=== PATIENT | female | born 1960 | race African-American/Black ===

== ENCOUNTER 2016-09-27 18:05 | Inpatient (IN) | payer BC, SELFPAY ==
[~2016-09-27] VITALS: Ht 167.6 cm; Wt 83.2 kg
[2016-09-27 18:54] LABS: BASO % 0.6 % (0.0-1.0); EOS # 0.1 K/mm3 (0.0-0.50); EOS % 2.4 % (0.0-3.0); LARGE UNSTAINED CELL # 0.1 K/mm3 (0.0-0.4); LYMPH # 0.4 K/mm3 (1.5-4.5); LYMPH % 13.1 % (24.0-44.0); MEAN CORPUSCULAR HEMOGLOBIN 24.2 pg (27.0-33.0); MEAN CORPUSCULAR HGB CONC 29.4 g/dl (32.0-36.5); MEAN CORPUSCULAR VOLUME 82.1 fl (80.0-96.0); MONO # 0.2 K/mm3 (0.0-0.8); MONO % 5.7 % (0.0-5.0); NEUTROPHILS # 2.3 K/mm3 (1.8-7.7); NEUTROPHILS % 75.3 % (36.0-66.0); PLATELET COUNT, AUTOMATED 195 k/mm3 (150-450); RED CELL DISTRIBUTION WIDTH 17.4 % (11.5-14.5)
[2016-09-27 19:02] LABS: ADD MORPHOLOGY? YES
[2016-09-27 19:11] LABS: ANION GAP 5 MEQ/L (8-16); BLOOD UREA NITROGEN 18 MG/DL (7-18); CALCIUM LEVEL 9.1 MG/DL (8.5-10.1); CARBON DIOXIDE LEVEL 36 MEQ/L (21-32); CHLORIDE LEVEL 99 MEQ/L (98-107); CREATININE FOR GFR 0.81 MG/DL (0.55-1.02); GLOMERULAR FILTRATION RATE > 60.0 (>51); GLUCOSE, FASTING 132 MG/DL (70-105); POTASSIUM SERUM 3.9 MEQ/L (3.5-5.1); SODIUM LEVEL 140 MEQ/L (136-145)
[2016-09-27 19:17] LABS: ANISOCYTOSIS 1+; HYPOCHROMASIA 2+
[2016-09-27] MEDS ORDERED: IBUPOTC PO (20:25)
[2016-09-27] MEDS ORDERED: ISOVUE-370 76% 100ML VIAL (Q9967) As Ordered ONE (20:47)
--- NOTE | 2016-09-27 21:30 | REPUSA ---
CT of the chest Clinical statement: Chest pain and shortness of breath. Technique: Multiple axial CT images were obtained from the thoracic inlet through the upper abdomen a fter a bolus administration of nonionic intravenous contrast. Coronal and sagittal reconstructions we re also obtained. No comparison is available. Findings: The central pulmonary arteries are unremarkable. The thoracic aorta is unremarkable. Thyroi d gland is within normal limits. There is no thoracic lymphadenopathy. There are extensive emphysemat ous changes in the upper lobes. Diffuse bilateral infiltrates are appreciated. There is a small right -sided pleural effusion. Limited imaging of the upper abdomen is unremarkable. There are no suspiciou s osseous lesions. Impression: Diffuse bilateral infiltrates. Small right-sided pleural effusion. Severe emphysematous c hanges in the upper lobes bilaterally.
[2016-09-27 22:13] LABS: ABG BASE EXCESS 6.7 (-2.0-2.0); ABG DEVICE NASAL CANN; ABG PARTIAL PRESSURE O2 83.3 mmHg (75.0-100.0); ABG STANDARD HCO3 30.6 MEQ/L (22.0-26.0); ABG TOTAL CO2 37.2 MEQ/L (22.0-29.0); ABG pH (ARTERIAL) 7.313 UNITS (7.350-7.450)
[2016-09-27 22:15] LABS: ABG PARTIAL PRESSURE CO2 70.6 mmHg (35.0-45.0)
[2016-09-27] MEDS ORDERED: cefTRIAXone SOD 1 GM VIAL (J0696) As Ordered ONE (22:23)
[2016-09-27] MEDS ORDERED: IPRATROPIUM 0.5MG/ALBUTEROL 2.5MG INH SOL UD 3ML (DUONEB)(J7620) As Ordered ONE (22:41)
[2016-09-27] MEDS ORDERED: AZITHROMYCIN INJ 500MG VIAL (J0456) As Ordered ONE (22:54)
[2016-09-27] MEDS ORDERED: ALBUTEROL SULFATE 2.5 MG/0.5 ML INH NEB SOLN NEB PRN (23:45)
[2016-09-28] VITALS (11 sets, daily range): BP systolic 116–141; BP diastolic 65–80; O2SAT 98
[2016-09-28 00:33] LABS: ABG BASE EXCESS 4.5 (-2.0-2.0); ABG HCO3 33.2 MEQ/L (22.0-26.0); ABG PARTIAL PRESSURE O2 68.5 mmHg (75.0-100.0); ABG STANDARD HCO3 28.4 MEQ/L (22.0-26.0); ABG TOTAL CO2 35.4 MEQ/L (22.0-29.0); ABG pH (ARTERIAL) 7.277 UNITS (7.350-7.450)
[2016-09-28 00:34] LABS: ABG PARTIAL PRESSURE CO2 72.7 mmHg (35.0-45.0)
[2016-09-28] MEDS ORDERED: IPRATROPIUM 0.5MG/ALBUTEROL 2.5MG INH SOL UD 3ML (DUONEB)(J7620) NEB SCH (02:00)
[2016-09-28 02:04] LABS: ERYTHROCYTE SEDIMENTATION RATE 16 mm/hr (0-30)
--- NOTE | 2016-09-28 02:14 | HPE ---
DATE OF ADMISSION: 09/27/2016 PRIMARY CARE PROVIDER: None. CHIEF COMPLAINT: Shortness of breath. HISTORY OF PRESENT ILLNESS: Ms. Perales is a 56-year-old female with no known prior past medical history who was brought in by family with complaint of shortness of breath. The onset of her symptom is somewhat unclear, but thinks it might have started a year ago and noticed that it has slowly worsened. A month ago, she had no difficulty walking from the [employer] parking lot into the front door; however, in the last month or so her symptoms have progressed to the point that she can barely walk 10 feet without stopping for rest. Unable to tell how long the episode lasts. The patient seems to minimize her symptoms but family noticed that she can barely eat, walking, do the dishes, vacuuming without feeling winded. Associated with intermittent chest pain every 2 weeks that is located in her mid and substernal area, described as sharp, lasting for seconds. Unable to tell what provokes the pain. Occasionally takes ibuprofen, which seems to help. No paroxysmal nocturnal dyspnea or orthopnea, though son states that she wakes up at night to cough multiple times. No fevers, chills, nausea, rigors. Thinks she might have lost some weight, but unable to recall how much. Has never been seen by a provider for this condition. In the emergency department (ED), was started on Rocephin, azithromycin and nebulizer treatments. PAST MEDICAL HISTORY: None. PAST SURGICAL HISTORY: None. HOME MEDICATION: Occasional ibuprofen for chest pain, which seems to help. ALLERGIES: No known drug allergies. SOCIAL HISTORY: The patient is an ex-smoker. Used to smoke for 25 years, but a pack would last her for a week. Quit 1-1/2 years ago. No alcohol. No drug use. Lifetime travel includes going to [place], [place], [place], [place]. 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 No exposure tuberculosis, asbestos she is aware of. In June 2016, had acquired two parakeets. Did not notice that her symptoms progressed after having her birds. FAMILY HISTORY: Father with hypertension. Mother is alive and healthy. Her siblings are all healthy. REVIEW OF SYSTEMS: CONSTITUTIONAL: Denies fevers, chills, rigors. Positive for unintentional unknown amount of weight loss. HEENT: Denies headaches, lightheadedness, hemoptysis, dizziness, difficulty with speech and swallow. Positive for blurry vision requiring glasses at work, no pain. CARDIOVASCULAR: As mentioned above. Has not noticed any leg swelling. PULMONARY: As mentioned above. GASTROINTESTINAL: Denies hematochezia, melena, or hematemesis, nausea, vomiting , diarrhea, constipation. GENITOURINARY: No dysuria, frequency or hematuria. MUSCULOSKELETAL: No bone, muscle, joint pain. NEUROLOGICAL: No paralysis, paresthesia, headaches, seizure disorders. ENDOCRINE: Negative for diabetes, or thyroid disease. LYMPHATICS: No lumps, bumps, or swelling anywhere in neck, axilla, or groin. HEMATOLOGY: No abnormal bleeding or bruising. ONCOLOGY: No history of malignancy. PHYSICAL EXAMINATION: VITAL SIGNS: Blood pressure 185/93, heart rate 127 improved to 98, respiration rate 24, temperature 97.7, pulse oximetry initially 68% on room air, which improved to 94% on 4 liters nasal cannula. Body mass index (BMI) 30. GENERAL: The patient is sitting in bed, ill appearing, currently wearing bilevel positive airway pressure (BiPAP) at 10/4, back up rate 8 with FIO2 of 30%, uncomfortable, using accessory muscles. Family at bedside. She is alert, awake, oriented times three, cooperative, appears stated age. HEENT: Normocephalic, atraumatic. Wearing bilevel positive airway pressure (BPAP), but oral mucosa appears moist. Rest of exam deferred at this time as she is needing her mask. NECK: Supple. Trachea midline. No jugular venous distention (JVD). CHEST: Symmetric chest rise with abdominal muscle use. Prolonged expiratory phase. Breath sounds are coarse with crackles throughout all lung bases. HEART: Mildly tachycardic, normal S1, S2. Heart sounds are obscured due to her coarse breath sounds. ABDOMEN: Soft, nontender, nondistended. Bowel sounds present. No guarding. No rebound. EXTREMITIES: There is 1-2+ pitting edema bilateral lower extremities. Sensory intact. NEUROLOGIC: She is alert, awake, oriented as mentioned above. No focal deficits appreciated. INTEGUMENT: No obvious rashes appreciated. She does have a small nodular change on her left left leg, nontender. LYMPHATICS: No lymphadenopathy palpated in neck, axilla. LABORATORY DATA: WBC 3, hemoglobin 11, hematocrit 37.5, platelets 195, neutrophils 75. Sodium 140, potassium 3.9, chloride 99, carbon dioxide 36, BUN 18, creatinine 0.81, glucose 132, lactic acid 0.6. Troponin negative first set. BNP 59.9. Coagulation panel: D-dimer 2131. ABG, pH 7.31, pCO2 70.6, oxygen 83. CT chest reports diffuse bilateral infiltrates, small right-sided pleural effusion, severe emphysematous changes in upper lobes bilaterally. EKG showed sinus tachycardia, PA is 96, QTc 369. IMPRESSION AND PLAN: Ms. Perales is a 56-year-old female with no prior known past medical history, presented tonight with worsening shortness of breath. 1. Acute hypoxic hypercarbic respiratory failure. Etiology for her hypoxic episode currently unclear. Possible causes include sarcoidosis, chemical pneumonitis, infectious, versus other. She has parakeets at home though her symptoms appear to have occur even before she acquired her birds and it is unclear when her symptoms actually worsened. The patient has already been started on bilevel positive airway pressure (BiPAP). Currently on 06/11 with backup rate of 8 at 30%. Start nebulizer treatment, steroids. Has already been started on azithromycin and Rocephin. Will change to Zosyn to broaden her antibiotic coverage at this time. Check a respiratory panel. 2. Leukopenia. Reason for this unclear. Could be due to current infection. Repeat labs in the morning. Check blood cultures. 3. Anemia. Unclear what her baseline is. Repeat labs in the morning. If continues to be low, will need further workup such as iron studies. 4. Deep venous thrombosis (DVT) prophylaxis. Sequential compression devices (SCDs), thromboembolism deterrents (TEDs) and heparin. DISPOSITION: Due to the patient's critical condition, we expect her stay to be greater than two midnights. My preceptor for this patient encounter was Dr. Juan Lane. The preceptor was physically present in the building during the encounter and was fully available as needed. All aspects of the patient interview, examination, medical decision making process, and medical care plan development were reviewed and approved by the preceptor. The preceptor is aware and concurs with the plan as stated in the body of this note and will attest to such by his/her co-signature. ANGELINE
--- NOTE | 2016-09-28 02:28 | EDDOCDS ---
Nurse's Notes [facility] Name: Finn Perales Age: 56 yrs Sex: Female : 1960 Arrival Date: 09/27/2016 Time: 18:05 Bed 13 Private MD: NO PRIMARY PHYSICIAN, . Diagnosis: Other pneumonia, unspecified organism-bilateral;Emphysema-bilateral apical;Acute respiratory failure with hypercapnia Presentation: 09/27 18:09 Presenting complaint: son states cough started a month ago. gotten worse with SOB for 2 rs3 weeks. has not seen anybody. no h/o asthma. chest tightness, SOB, cough worse today. Aspirin was not taken prior to arrival. Adult Sepsis Screening: The patient does not have new or worsening altered mentation. Patient has a respiratory rate of greater than or equal to 22 (1 point). Systolic blood pressure is greater than 100. Patient has a qSOFA score of 1- Negative Sepsis Screen. Suicide/Homicide risk assessment- the patient denies having any suicidal and/or homicidal ideations and does not present with any other emotional, behavioral or mental health complaints. Status: Patient is not a hosted services analyst or dependent. Transition of care: patient was not received from another setting of care. 18:09 Acuity: CRISTAL Level 3 rs3 18:09 Method Of Arrival: Walkin/Carried/Asstd rs3 Triage Assessment: 18:12 General: Appears in no apparent distress. Pain: Location: chest. HIV screening NA for rs3 this visit Offered previously. Cardiovascular: Chest pain is described as Pain is 5 out of 10 on a pain scale. radiates Does not radiate. episodes are intermittent began one month. Historical: - Allergies: no known allergies; - Home Meds: 1. none - PMHx: none; - PSHx: none; - Social history: Smoking status: Patient states former smoker of tobacco. No barriers to communication noted, The patient speaks fluent Romansh. - Family history: Not pertinent. - : The pt / caregiver states he / she is not on anticoagulants. Home medication list is obtained from the patient. - Exposure Risk Screening:: None identified. Screenin:40 Screening information is obtained from the patient. Fall risk: No risks identified. ld5 Assistance ADL's: requires no assistance with activities of daily living. Abuse/DV Screen: The patient / caregiver reports he/she is: not in a situation that causes fear, pain or injury. Nutritional screening: No deficits noted. Advance Directives: There is no active DNR order. home support is adequate. Assessment: 18:30 General: Appears in no apparent distress, Behavior is appropriate for age, cooperative. dy 18:30 Pain: Denies pain. Neurological: Level of Consciousness is awake, alert, obeys dy commands, Oriented to person, place, time, Pupils are PERRLA. Cardiovascular: Heart tones S1 S2 Edema is 2+ to left midcalf, left ankle, left foot, right midcalf and right ankle Rhythm is regular. Respiratory: Airway is patent Respiratory effort is even, labored, Breath sounds are coarse Breath sounds with crackles inspiratory expiratory bilaterally. Derm: Skin is pink, warm & dry. 19:05 General: Appears in no apparent distress, Behavior is cooperative. Pain: Denies pain. ld5 Neurological: Level of Consciousness is awake, obeys commands. Respiratory: Airway is patent Respiratory effort is even, labored. GI: Bowel sounds present X 4 quads. Abd is soft and non tender X 4 quads. Denies nausea, vomiting. 19:05 Respiratory: Airway is patent Breath sounds are coarse bilaterally. Breath sounds are ld5 diminished bilaterally. Reports shortness of breath at rest on exertion cough that is non-productive, labored breathing. 20:14 General: Blood work obtained. Pt denies pain. States getting "restless". Railings ld5 placed down. TV placed within pt's reach. Call musa within reach. Family member at bedside. Will continue to monitor. 21:09 General: Pt returned from CT. Became SOB when asked to lay flat. Pt reports nervous ld5 about scan. This RN discussed scan to pt. Pt appeared to relax. Pt able to make it through scan with minimal distress. Will continue to monitor. 22:00 General: Pt sitting up in bed with eyes closed. Family at bedside. No apparent ld5 distress. Call musa within reach. Will continue to monitor. 23:00 General: Antibiotic started per orders. RT in room as pt was just started on BiPap. Pt ld5 and family made aware of POC. Denies any needs at this time. Will continue to monitor. 23:30 General: Pt dislikes mask from bipap machine. Requesting it be removed. It was ld5 explained to pt and family members that ABG would be repeated at 0000 and bipap may be removed pending results. Pt agreeable. Will continue to monitor. 23:50 General: Second antibiotic infusing. Pt aware of plan for ICU admission. Will continue ld5 to monitor. 09/28 00:06 General: Spoke with ICU regarding report. Will call back. ld5 00:42 General: Pt up to commode. Tolerated well. Again requesting to take bipap mask off. ld5 Repeat ABG pending. Will continue to monitor. 01:00 General: Pt requesting water. Pt NPO at this time. Will continue to monitor. ld5 01:20 General: Pt sitting up in bed and appears to be sleeping. BiPap remains in place. ld5 Awaiting ICU call regarding report. Will continue to monitor. 02:11 General: Appears in no apparent distress. Pain: Denies pain. Respiratory: Airway is ld5 patent. Vital Signs: 09/27 18:06 BP 185 / 93; Pulse 127; Resp 24 S; Temp 97.7(O); Pulse Ox 68% on R/A; Weight 83.91 kg dd6 (R); Height 5 ft. 6 in. (167.64 cm) (R); 18:25 Pulse 122 MON; Pulse Ox 67% ; dy 18:30 Pulse 110 MON; Pulse Ox 99% ; dy 18:30 BP 173 / 91 (auto/); dy 19:30 BP 157 / 82 (auto/); ld5 19:30 Pulse 104 MON; Pulse Ox 98% ; ld5 20:30 BP 162 / 94 (auto/); ld5 20:30 Pulse 100 MON; Pulse Ox 97% on 4 lpm NC; ld5 20:45 BP 164 / 93 (auto/); ld5 20:45 Pulse 98 MON; Pulse Ox 96% on 4 lpm NC; ld5 21:07 BP 169 / 89 (auto/); ld5 21:09 Pulse 112 MON; Resp 22; Temp 97.3(O); Pulse Ox 94% on 4 lpm NC; ld5 21:30 BP 165 / 87 (auto/); ld5 21:30 Pulse 100 MON; Pulse Ox 94% on 4 lpm NC; ld5 22:00 BP 185 / 86 (auto/); ld5 22:00 Pulse 104 MON; Pulse Ox 97% on 4 lpm NC; ld5 22:30 BP 164 / 92 (auto/); ld5 22:30 Pulse 96 MON; Pulse Ox 96% on 4 lpm NC; ld5 23:00 BP 173 / 93 (auto/); ld5 23:00 Pulse 104 MON; Pulse Ox 93% on BiPAP; ld5 23:30 BP 162 / 80 (auto/); ld5 23:32 Pulse 90 MON; Temp 98; Pulse Ox 98% on BiPAP; ld5 09/28 00:37 BP 140 / 74 (auto/); ld5 00:53 Pulse 86 MON; Pulse Ox 97% on 40% BiPAP; ld5 01:00 BP 105 / 57 (auto/); ld5 01:00 Pulse 84 MON; Resp 22; Pulse Ox 97% ; ld5 01:30 BP 131 / 69 (auto/); ld5 01:30 Pulse 84 MON; Resp 22; Temp 98.1; Pulse Ox 97% on 40% BiPAP; ld5 02:00 BP 135 / 74 (auto/); ld5 02:00 Pulse 84 MON; Pulse Ox 99% on 40% BiPAP; ld5 09/27 18:06 Body Mass Index 29.86 (83.91 kg, 167.64 cm) dd6 Vitals: 09/27 18:06 Log In Time: September 27, 2016 at 18:04. RN notified that patient meets Red Flag dd6 criteria. ED Course: 18:06 Patient visited by Doe Richey PCA. dd6 18:06 NO PRIMARY PHYSICIAN, . is Private Physician. dd6 18:06 Patient moved to Waiting dd6 18:08 Patient moved to Pre RCE dd6 18:10 Triage Initiated rs3 18:14 Patient moved to PD2 / rs3 18:19 Taylor Dexter, RN is Primary Nurse. dwg 18:19 Patient moved to 13 dwg 18:26 O2 via nasal cannula \\T\\ 4L/min. dy 18:26 Inserted saline lock: 18 gauge in left antecubital area and blood collected. The dy patient tolerated the procedure well. 18:28 Accompanied by Family Member, Patient has correct armband on for positive ct3 identification. Placed in gown. Bed in low position. Call light in reach. Side rails up X 1. cardiac monitor technician on. Pulse ox on. NIBP on. 18:28 EKG done. (by ED staff). Reviewed by Jared Yen MD. ct3 18:29 Patient visited by Luna Barboza PCA. ct3 18:36 Luciana Villalobos FNP is PHCP. le 18:36 B-Type Natiuretic Peptide Sent. dy 18:36 Basic Metabolic Profile Sent. dy 18:36 CBC with Diff Sent. dy 18:36 Cardiac Injury Profile Sent. dy 18:36 Troponin Sent. dy 18:39 Patient visited by Juan Martinez RN. dy 18:39 The patient / caregiver is instructed regarding the plan of care and ED course. dy 18:40 Patient visited by Luciana Villalobos FNP. le 18:40 Patient visited by Luciana Villalobos FNP. le 18:56 Primary Nurse role handed off by Taylor Dexter RN jjr 19:40 Patient visited by Lissa Renee RN. ld5 19:40 No procedures done that require assistance. ld5 19:41 Patient visited by Lissa Renee RN. ld5 19:48 [facility] Payment Agreement was scanned into [employer] and attached to record. jp5 20:02 Patient visited by Lissa Renee RN. ld5 20:14 BLOOD CULTURES Sent. ld5 20:14 -Blood Culture Sent. ld5 20:15 Patient visited by Lissa Renee RN. ld5 20:39 Patient name changed from Cherrel\\S\\\\S\\Angella\\S\\ to Cherrel\\S\\ \\S\\Angella. EDMS 21:09 Patient visited by Lissa Renee RN. ld5 21:54 Patient visited by Lissa Renee RN. ld5 22:04 -Arterial Blood Gas Sent. rs5 22:16 Patient visited by Lissa Renee RN. ld5 22:24 CT Chest With Contrast Returned. EDMS 22:44 Patient visited by Lissa Renee RN. ld5 22:44 Lactic Acid (Drake tube on ice) Sent. ld5 23:08 Patient visited by Lissa Renee RN. ld5 23:26 Patient visited by Lissa Renee RN. ld5 23:[address] MD is Hospitalizing Provider. le 09/28 00:07 Patient visited by Lissa Renee RN. ld5 00:14 ARTERIAL BLOOD GAS Sent. bb3 00:55 Patient visited by Lissa Renee RN. ld5 01:22 Patient visited by Lissa Renee RN. ld5 01:49 Patient visited by Lissa ReneeRN. ld5 02:15 Patient visited by Lissa Renee RN. ld5 Administered Medications: 09/27 22:54 Drug: Albuterol-Ipratropium 3 ml [ipratropium-albuterol 0.5 mg-3 mg(2.5 mg base)/3 mL bb3 nebulization soln (3 mL)] Route: Inhalation; 23:00 Drug: cefTRIAXone 2 grams [ceftriaxone 1 gram solution for injection] Route: IVPB; ld5 Infused Over: 30 mins; Site: left antecubital; 23:30 Follow up: IV Status: Completed infusion; IV Intake: 50ml ld5 23:45 Drug: azithromycin 500 mg [azithromycin 500 mg intravenous solution] Route: IVPB; ld5 Infused Over: 1 hrs; Site: left antecubital; 09/28 01:42 Follow up: IV Status: Completed infusion; IV Intake: 250ml ld5 Intake: 09/27 23:30 IV: 50.00ml; Total: 50.00ml. ld5 09/28 01:42 IV: 250.00ml; Total: 300.00ml. ld5 RT: 09/27 22:04 ABG's drawn from left radial artery allens test done and positive pressure held for 5 rs5 minutes no bleeding noted pressure bandage applied specimen sent pt. tolerated well. 22:53 BIPAP: Inspiratory Pressure: 10, Expiratory Pressure: 4, Backup Rate: 8, FiO2: 30%, bb3 Full face fask. Respiratory: Respiratory effort is even, unlabored, Respiratory pattern is regular symmetrical, sp02 97%. 22:55 Respiratory: Breath sounds are coarse Breath sounds with crackles bilaterally. Denies bb3 shortness of breath at rest, past baseline. 22:56 Initial Med Neb Given as ordered Patient was instructed and evaluated on procedure. bb3 23:15 Respiratory: Breath sounds are coarse bilaterally. bb3 23:16 Respiratory: pt tolerating BIPAP well. vt trending 350-400ml. respirations trending mid bb3 to low 30s non labored. 09/28 00:14 ABG's drawn from right radial artery pressure held for 5 minutes no bleeding noted bb3 pressure bandage applied specimen sent pt. tolerated well. Respiratory: BIPAP 10/4 30%. 00:41 BIPAP: Inspiratory Pressure: 14, Expiratory Pressure: 4, FiO2: 40%, Full face fask. bb3 Respiratory: changed per ABG results and conversation with Dr. Lane. Order Results: Lab Order: B-Type Natiuretic Peptide; SPEC'M 09/27/16 18:32 Test: BRAIN NATRIURETIC PEPTIDE; Value: 59.9; Range: <100; Units: PG/ML; Status: F Lab Order: Basic Metabolic Profile; SPEC'M 09/27/16 18:32 Test: GLUCOSE, FASTING; Value: 132; Range: 70-105; Abnormal: Above high normal; Units: MG/DL; Status: F Test: BLOOD UREA NITROGEN; Value: 18; Range: 7-18; Units: MG/DL; Status: F Test: CREATININE FOR GFR; Value: 0.81; Range: 0.55-1.02; Units: MG/DL; Status: F Test: GLOMERULAR FILTRATION RATE; Value: > 60.0; Range: >51; Status: F Test: SODIUM LEVEL; Value: 140; Range: 136-145; Units: MEQ/L; Status: F Test: POTASSIUM SERUM; Value: 3.9; Range: 3.5-5.1; Units: MEQ/L; Status: F Test: CHLORIDE LEVEL; Value: 99; Range: 98-107; Units: MEQ/L; Status: F Test: CARBON DIOXIDE LEVEL; Value: 36; Range: 21-32; Abnormal: Above high normal; Units: MEQ/L; Status: F Test: ANION GAP; Value: 5; Range: 8-16; Abnormal: Below low normal; Units: MEQ/L; Status: F Test: CALCIUM LEVEL; Value: 9.1; Range: 8.5-10.1; Units: MG/DL; Status: F Test Note: ; Units are mL/min/1.73 m2 Chronic Kidney Disease Staging per NKF: Stage I & II GFR >=60 Normal to Mildly Decreased Stage III GFR 30-59 Moderately Decreased Stage IV GFR 15-29 Severely Decreased Stage V GFR <15 Very Little GFR Left ESRD GFR <15 on BOTTOM BUFFER Lab Order: CBC with Diff; SPEC'M 09/27/16 18:32 Test: WHITE BLOOD COUNT; Value: 3.0; Range: 4.0-10.0; Abnormal: Below low normal; Units: K/mm3; Status: F Test: RED BLOOD COUNT; Value: 4.56; Range: 4.00-5.40; Units: M/mm3; Status: F Test: HEMOGLOBIN; Value: 11.0; Range: 12.0-16.0; Abnormal: Below low normal; Units: g/dl; Status: F Test: HEMATOCRIT; Value: 37.5; Range: 36.0-47.0; Units: %; Status: F Test: MEAN CORPUSCULAR VOLUME; Value: 82.1; Range: 80.0-96.0; Units: fl; Status: F Test: MEAN CORPUSCULAR HEMOGLOBIN; Value: 24.2; Range: 27.0-33.0; Abnormal: Below low normal; Units: pg; Status: F Test: MEAN CORPUSCULAR HGB CONC; Value: 29.4; Range: 32.0-36.5; Abnormal: Below low normal; Units: g/dl; Status: F Test: RED CELL DISTRIBUTION WIDTH; Value: 17.4; Range: 11.5-14.5; Abnormal: Above high normal; Units: %; Status: F Test: PLATELET COUNT, AUTOMATED; Value: 195; Range: 150-450; Units: k/mm3; Status: F Test: NEUTROPHILS %; Value: 75.3; Range: 36.0-66.0; Abnormal: Above high normal; Units: %; Status: F Test: LYMPH %; Value: 13.1; Range: 24.0-44.0; Abnormal: Below low normal; Units: %; Status: F Test: MONO %; Value: 5.7; Range: 0.0-5.0; Abnormal: Above high normal; Units: %; Status: F Test: EOS %; Value: 2.4; Range: 0.0-3.0; Units: %; Status: F Test: BASO %; Value: 0.6; Range: 0.0-1.0; Units: %; Status: F Test: LARGE UNSTAINED CELL %; Value: 3.0; Range: 0.0-4.0; Units: %; Status: F Test: NEUTROPHILS #; Value: 2.3; Range: 1.8-7.7; Units: K/mm3; Status: F Test: LYMPH #; Value: 0.4; Range: 1.5-4.5; Abnormal: Below low normal; Units: K/mm3; Status: F Test: MONO #; Value: 0.2; Range: 0.0-0.8; Units: K/mm3; Status: F Test: EOS #; Value: 0.1; Range: 0.0-0.50; Units: K/mm3; Status: F Test: BASO #; Value: 0.0; Range: 0.0-0.2; Units: K/mm3; Status: F Test: LARGE UNSTAINED CELL #; Value: 0.1; Range: 0.0-0.4; Units: K/mm3; Status: F Lab Order: Cardiac Injury Profile; SPEC' 09/27/16 18:32 Test: CPK CREATINE PHOSPHOKINASE; Value: 39; Range: 26-192; Units: U/L; Status: F Test: CK-MB VALUE MASS; Value: 1.0; Range: 0.0-3.6; Units: NG/ML; Status: F Test: MB/CK RELATIVE INDEX; Value: 2.56; Range: < OR =4; Status: F Test Note: ; DIAGNOSIS CRITERIA MMB ng/ml Relative Index (RI) NON-AMI < or = 5 N/A DRAKE ZONE > 5 < or = 4 AMI > 5 > 4 Lab Order: Troponin; SPEC'M 09/27/16 18:32 Test: TROPONIN I; Value: < 0.02; Range: < 0.10; Units: NG/ML; Status: F Test Note: ; Troponin I Reference Interval for [facility] LOCI: 99th Percentile= 0.00-0.045 ng/ml Risk Stratification: <= 0.10 ng/ml Decreased Risk for Adverse Clinical Events. 0.10-1.50 ng/ml Increased Risk for Adverse Clinical Events. Evaluation of additional criterion and/or repeat testing in 2-6 hours is suggested to rule out myocardial damage. >= 1.50 ng/ml Indicative of Myocardial Injury. Lab Order: RBC MORPH PROF NO CHARGE; SPECM 09/27/16 18:32 Test: PLATELET ESTIMATE; Range: NORMAL; Status: I Test: HYPOCHROMASIA; Value: 2+; Status: F Test: BASOPHILIC STIPPLING; Value: 1+; Status: F Test: ANISOCYTOSIS; Value: 1+; Status: F Test: PLATELET ESTIMATE; Value: NORMAL; Range: NORMAL; Status: F Lab Order: D-Dimer Quant; SPEC09/27/16 18:32 Test: D-DIMER QUANT; Value: 2131.8; Range: <500; Abnormal: Above high normal; Units: ng/ml; Status: F Lab Order: -Arterial Blood Gas; 09/27/16 21:56 Test: ABG pH (ARTERIAL); Value: 7.313; Range: 7.350-7.450; Abnormal: Below low normal; Units: UNITS; Status: F Test: ABG PARTIAL PRESSURE CO2; Value: 70.6; Range: 35.0-45.0; Abnormal: Above upper panic limits; Units: mmHg; Status: F Test: ABG PARTIAL PRESSURE O2; Value: 83.3; Range: 75.0-100.0; Units: mmHg; Status: F Test: ABG TOTAL CO2; Value: 37.2; Range: 22.0-29.0; Abnormal: Above high normal; Units: MEQ/L; Status: F Test: ABG HCO3; Value: 35.0; Range: 22.0-26.0; Abnormal: Above high normal; Units: MEQ/L; Status: F Test: ABG BASE EXCESS; Value: 6.7; Range: -2.0-2.0; Abnormal: Above high normal; Status: F Test: ABG STANDARD HCO3; Value: 30.6; Range: 22.0-26.0; Abnormal: Above high normal; Units: MEQ/L; Status: F Test: ABG O2 SATURATION; Value: 95.4; Range: 95.0-99.0; Units: %; Status: F Test: ABG DEVICE; Value: NASAL KAZ; Status: F Lab Order: Lactic Acid (Drake tube on ice); SPEC09/27/16 22:41 Test: LACTIC ACID LEVEL, LACTATE; Value: 0.6; Range: 0.4-2.0; Units: MMOL/L; Status: F Lab Order: ARTERIAL BLOOD GAS; SPEC'M 09/28/16 00:07 Test: ABG pH (ARTERIAL); Value: 7.277; Range: 7.350-7.450; Abnormal: Below low normal; Units: UNITS; Status: F Test: ABG PARTIAL PRESSURE CO2; Value: 72.7; Range: 35.0-45.0; Abnormal: Above upper panic limits; Units: mmHg; Status: F Test: ABG PARTIAL PRESSURE O2; Value: 68.5; Range: 75.0-100.0; Abnormal: Below low normal; Units: mmHg; Status: F Test: ABG TOTAL CO2; Value: 35.4; Range: 22.0-29.0; Abnormal: Above high normal; Units: MEQ/L; Status: F Test: ABG HCO3; Value: 33.2; Range: 22.0-26.0; Abnormal: Above high normal; Units: MEQ/L; Status: F Test: ABG BASE EXCESS; Value: 4.5; Range: -2.0-2.0; Abnormal: Above high normal; Status: F Test: ABG STANDARD HCO3; Value: 28.4; Range: 22.0-26.0; Abnormal: Above high normal; Units: MEQ/L; Status: F Test: ABG O2 SATURATION; Value: 90.5; Range: 95.0-99.0; Abnormal: Below low normal; Units: %; Status: F Lab Order: C REACTIVE PROTEIN QUANTITATIV; SPEC'M 09/27/16 18:32 Test: C REACTIVE PROTEIN QUANTITATIV; Value: 1.46; Range: 0.00-0.30; Abnormal: Above high normal; Units: MG/DL; Status: F Lab Order: ERYTHROCYTE SEDIMENTATION RATE; SPEC'M 09/27/16 18:32 Test: ERYTHROCYTE SEDIMENTATION RATE; Value: 16; Range: 0-30; Units: mm/hr; Status: F Radiology Order: CT Chest With Contrast Test: CT Chest With Contrast REASON FOR EXAMINATION: Shortness of Breath; ; CT of the chest; Clinical statement: Chest pain and shortness of breath.; Technique: Multiple axial CT images were obtained from the thoracic inlet through the upper abdomen a; fter a bolus administration of nonionic intravenous contrast. Coronal and sagittal reconstructions we; re also obtained.; No comparison is available.; Findings: The central pulmonary arteries are unremarkable. The thoracic aorta is unremarkable. Thyroi; d gland is within normal limits. There is no thoracic lymphadenopathy. There are extensive emphysemat; ous changes in the upper lobes. Diffuse bilateral infiltrates are appreciated. There is a small right; -sided pleural effusion. Limited imaging of the upper abdomen is unremarkable. There are no suspiciou; s osseous lesions.; Impression: Diffuse bilateral infiltrates. Small right-sided pleural effusion. Severe emphysematous c; hanges in the upper lobes bilaterally.; ; Outcome: 09/27 23:46 Decision to Hospitalize by Provider. le 09/28 01:22 CT Study completed. ld5 02:14 Discharge Assessment: Patient awake, alert and oriented x 3. No cognitive and/or ld5 functional deficits noted. Patient verbalized understanding of disposition instructions. patient administered narcotics - no. The following High Risk Discharge criteria are identified: None. Admitted to ICU accompanied by nurse, accompanied by tech, family with patient, via stretcher, with oxygen, on monitor, with chart, Other with RT. Condition: stable. Property :Personal belongings accompany Pt. 02:27 Patient left the ED. ld5 Signatures: Dispatcher [employer] EDMS Bryan Giles, RN Juan Garcia, RN Luciana Chung, STABILIZING MACHINE OPERATOR STABILIZING MACHINE OPERATOR Taylor Jenkins RN Doe Starkey, INTERNAL CONTROLS SPECIALIST INTERNAL CONTROLS SPECIALIST dd6 Yahaira NaiduRN RN rs3 Nakul Lopez bb3 Lissa Renee,IVAN LOVE ld5 Luna Barboza, INTERNAL CONTROLS SPECIALIST INTERNAL CONTROLS SPECIALIST ct3 Sal Hernandez,RT RT rs5 Dawna Farris jp5 Corrections: (The following items were deleted from the chart) 09/27 18:12 18:09 Presenting complaint: son states chest tightness, SOB, cough worse today rs3 rs3 09/28 00:55 00:53 Pulse 86bpm; Monitor; Pulse Ox 97% 02 30% BiPAP; ld5 ld5 MTDD
--- NOTE | 2016-09-28 02:28 | EDDOCDS ---
Physician Documentation [facility] Name: Finn Perales Age: 56 yrs Sex: Female : 1960 Arrival Date: 09/27/2016 Time: 18:05 Bed 13 Private MD: NO PRIMARY PHYSICIAN, . Disposition: 09/27/16 23:46 Hospitalization ordered by Juan Lane for Inpatient Admission. Preliminary diagnosis are Other pneumonia, unspecified organism - bilateral, Emphysema - bilateral apical, Acute respiratory failure with hypercapnia. - Bed requested for M ICU. - Status is Inpatient Admission. ld5 - Condition is Stable. - Problem is new. - Symptoms are unchanged. Historical: - Allergies: no known allergies; - Home Meds: 1. none - PMHx: none; - PSHx: none; - Social history: Smoking status: Patient states former smoker of tobacco. No barriers to communication noted, The patient speaks fluent Cambodian. - Family history: Not pertinent. - : The pt / caregiver states he / she is not on anticoagulants. Home medication list is obtained from the patient. - Exposure Risk Screening:: None identified. Vital Signs: 09/27 18:06 BP 185 / 93; Pulse 127; Resp 24 S; Temp 97.7(O); Pulse Ox 68% on R/A; Weight 83.91 kg / dd6 184.99 lbs (R); Height 5 ft. 6 in. (167.64 cm) (R); 18:25 Pulse 122 MON; Pulse Ox 67% ; dy 18:30 Pulse 110 MON; Pulse Ox 99% ; dy 18:30 BP 173 / 91 (auto/); dy 19:30 BP 157 / 82 (auto/); ld5 19:30 Pulse 104 MON; Pulse Ox 98% ; ld5 20:30 BP 162 / 94 (auto/); ld5 20:30 Pulse 100 MON; Pulse Ox 97% on 4 lpm NC; ld5 20:45 BP 164 / 93 (auto/); ld5 20:45 Pulse 98 MON; Pulse Ox 96% on 4 lpm NC; ld5 21:07 BP 169 / 89 (auto/); ld5 21:09 Pulse 112 MON; Resp 22; Temp 97.3(O); Pulse Ox 94% on 4 lpm NC; ld5 21:30 BP 165 / 87 (auto/); ld5 21:30 Pulse 100 MON; Pulse Ox 94% on 4 lpm NC; ld5 22:00 BP 185 / 86 (auto/); ld5 22:00 Pulse 104 MON; Pulse Ox 97% on 4 lpm NC; ld5 22:30 BP 164 / 92 (auto/); ld5 22:30 Pulse 96 MON; Pulse Ox 96% on 4 lpm NC; ld5 23:00 BP 173 / 93 (auto/); ld5 23:00 Pulse 104 MON; Pulse Ox 93% on BiPAP; ld5 23:30 BP 162 / 80 (auto/); ld5 23:32 Pulse 90 MON; Temp 98; Pulse Ox 98% on BiPAP; ld5 09/28 00:37 BP 140 / 74 (auto/); ld5 00:53 Pulse 86 MON; Pulse Ox 97% on 40% BiPAP; ld5 01:00 BP 105 / 57 (auto/); ld5 01:00 Pulse 84 MON; Resp 22; Pulse Ox 97% ; ld5 01:30 BP 131 / 69 (auto/); ld5 01:30 Pulse 84 MON; Resp 22; Temp 98.1; Pulse Ox 97% on 40% BiPAP; ld5 02:00 BP 135 / 74 (auto/); ld5 02:00 Pulse 84 MON; Pulse Ox 99% on 40% BiPAP; ld5 09/27 18:06 Body Mass Index 29.86 (83.91 kg, 167.64 cm) dd6 MDM: 09/27 18:15 ECG WITH READING ER PHYS+CARDIAG ordered. EDMS 18:20 Rn Community/Pulse Ox/q 30 min VS ordered. br1 18:20 IV Saline Lock ordered. br1 18:20 Rhythm Strip to chart ordered. br1 18:20 Undress patient appropriately for examination ordered. br1 18:21 B-Type Natiuretic Peptide Ordered. EDMS 18:21 Basic Metabolic Profile Ordered. EDMS 18:21 CBC with Diff Ordered. EDMS 18:21 Cardiac Injury Profile Ordered. EDMS 18:21 Troponin Ordered. EDMS 18:22 Chest, 2 View (pa\E\lat) Ordered. EDMS 18:26 Oxygen at 4L/Min NC or Home dosage ordered. br1 19:03 RBC MORPH PROF NO CHARGE Ordered. EDMS 19:29 BED REQUEST+ADM ordered. EDMS 19:48 [facility] Payment Agreement was scanned into [employer] and attached to record. jp5 19:48 Financial registration complete. jp5 19:54 Basic Metabolic Profile Reviewed. le 19:54 CBC with Diff Reviewed. le 19:54 B-Type Natiuretic Peptide Reviewed. le 19:54 Cardiac Injury Profile Reviewed. le 19:54 Troponin Reviewed. le 19:54 RBC MORPH PROF NO CHARGE Reviewed. le 19:56 -Blood Culture (Adults Only), peripheral from different site, or from device/port/PICC le etc. if present ordered. 19:57 -Blood Culture Ordered. EDMS 19:57 D-Dimer Quant Ordered. EDMS 20:00 CT Chest With Contrast Ordered. EDMS 20:01 -Blood Culture (Adults Only), peripheral from different site, or from device/port/PICC ml3 etc. if present complete. 20:03 BLOOD CULTURES Ordered. EDMS 21:23 Call Respiratory ordered. le 21:23 -Arterial Blood Gas Ordered. EDMS 21:52 Call Respiratory complete. ml3 22:14 D-Dimer Quant Reviewed. le 22:15 Albuterol-Ipratropium 3 ml Inhalation once ordered. le 22:15 Call Respiratory ordered. le 22:15 Call Respiratory ordered. le 22:16 Call Respiratory complete. ml3 22:16 Call Respiratory complete. ml3 22:16 BIPAP INPATIENT+RESP-VENT ordered. EDMS 22:19 azithromycin 500 mg IVPB once over 1 hrs; dilute in 250mL of D5W or NS ordered. le 22:19 cefTRIAXone 2 grams IVPB once over 30 mins; dilute in 50mL of NS or D5W ordered. le 22:19 Lactic Acid (Drake tube on ice) Ordered. EDMS 23:31 Redraw ABG (put time in details section) ordered. le 23:32 Redraw ABG (put time in details section) complete. ml3 23:34 ARTERIAL BLOOD GAS Ordered. EDMS 23:34 COMPLETE COMPHRENSIVE METABOLI Ordered. EDMS 23:34 SPUTUM CULTURE AND GRAM STAIN Ordered. EDMS 23:35 Lactic Acid (Drake tube on ice) Reviewed. le 23:35 NPO DIET ordered. EDMS 23:36 CT Chest With Contrast Reviewed. le 23:49 RESPIRATORY PANEL Ordered. EDMS 09/28 00:44 CBC WITH DIFFERENTIAL Ordered. EDMS 00:49 C REACTIVE PROTEIN QUANTITATIV Ordered. EDMS 01:16 CALCIUM,RANDOM URINE Ordered. EDMS 01:16 ANTINUCLEAR ANTIBODIES Ordered. EDMS 01:16 ANTI-NEUTROPHIL CYTOPLASMIC AB Ordered. EDMS 01:20 Admission / Observation Status ordered. EDMS Administered Medications: 09/27 22:54 Drug: Albuterol-Ipratropium 3 ml [ipratropium-albuterol 0.5 mg-3 mg(2.5 mg base)/3 mL bb3 nebulization soln (3 mL)] Route: Inhalation; 23:00 Drug: cefTRIAXone 2 grams [ceftriaxone 1 gram solution for injection] Route: IVPB; ld5 Infused Over: 30 mins; Site: left antecubital; 23:30 Follow up: IV Status: Completed infusion; IV Intake: 50ml ld5 23:45 Drug: azithromycin 500 mg [azithromycin 500 mg intravenous solution] Route: IVPB; ld5 Infused Over: 1 hrs; Site: left antecubital; 09/28 01:42 Follow up: IV Status: Completed infusion; IV Intake: 250ml ld5 Signatures: Dispatcher [employer] EDMS Umer Cancino, Cable Armorer Operator Unit ml3 Luciana Villalobos, SAFETY DEPOSIT SUPERVISOR Jared Veliz MD MD br1 Yahaira Naidu RN RN rs3 Lissa Renee,RN RN ld5 Dawna Farris jp5 Luciana Hubbard, RN RN lmg Nakul Lopez bb3 The chart was reviewed and I authenticate all verbal orders and agree with the evaluation and treatment provided.Corrections: (The following items were deleted from the chart) 00:54 00:46 ERYTHROCYTE SEDIMENTATION RATE ordered. EDMS EDMS 00:54 00:46 C REACTIVE PROTEIN QUANTITATIV ordered. EDMS EDMS Attachments: 09/27 19:48 [facility] Payment Agreement jp5 MTDD
[2016-09-28] MEDS: methylPREDNISolone INJ 125 MG/2 ML VIAL (J2930) IV SCH ×3 (03:33→19:26)
[2016-09-28] MEDS: PIPERACILLIN/TAZOBACTAM SOD 3.375 GM in D5W MINI-BAG PLUS 50 ML IV SCH ×4 (03:34→21:20)
[2016-09-28 04:04] LABS: ABG HCO3 34.8 MEQ/L (22.0-26.0); ABG STANDARD HCO3 29.9 MEQ/L (22.0-26.0); ABG TOTAL CO2 37.2 MEQ/L (22.0-29.0); ABG pH (ARTERIAL) 7.275 UNITS (7.350-7.450)
[2016-09-28 04:06] LABS: ABG PARTIAL PRESSURE CO2 76.7 mmHg (35.0-45.0)
[2016-09-28 04:32] LABS: BASO % 0.4 % (0.0-1.0); EOS % 1.2 % (0.0-3.0); LARGE UNSTAINED CELL # 0.1 K/mm3 (0.0-0.4); LARGE UNSTAINED CELL % 2.8 % (0.0-4.0); LYMPH # 0.3 K/mm3 (1.5-4.5); LYMPH % 8.8 % (24.0-44.0); MEAN CORPUSCULAR HEMOGLOBIN 23.9 pg (27.0-33.0); MEAN CORPUSCULAR HGB CONC 28.8 g/dl (32.0-36.5); MEAN CORPUSCULAR VOLUME 82.9 fl (80.0-96.0); MONO # 0.1 K/mm3 (0.0-0.8); MONO % 4.6 % (0.0-5.0); NEUTROPHILS # 2.6 K/mm3 (1.8-7.7); NEUTROPHILS % 82.2 % (36.0-66.0); PLATELET COUNT, AUTOMATED 170 k/mm3 (150-450); RED CELL DISTRIBUTION WIDTH 17.3 % (11.5-14.5); WHITE BLOOD COUNT 3.1 K/mm3 (4.0-10.0)
[2016-09-28 04:45] LABS: ALBUMIN 2.7 GM/DL (3.2-5.2); ALBUMIN/GLOBULIN RATIO 0.56 (1.00-1.93); ALKALINE PHOSPHATASE 74 U/L (45-117); ALT/SGPT 15 U/L (12-78); ANION GAP 3 MEQ/L (8-16); AST/SGOT 14 U/L (15-37); BILIRUBIN,TOTAL 0.2 MG/DL (0.2-1.0); BLOOD UREA NITROGEN 15 MG/DL (7-18); CALCIUM LEVEL 8.5 MG/DL (8.5-10.1); CARBON DIOXIDE LEVEL 36 MEQ/L (21-32); CHLORIDE LEVEL 101 MEQ/L (98-107); CREATININE FOR GFR 0.72 MG/DL (0.55-1.02); GLOMERULAR FILTRATION RATE > 60.0 (>51); GLUCOSE, FASTING 122 MG/DL (70-105); POTASSIUM SERUM 4.5 MEQ/L (3.5-5.1); SODIUM LEVEL 140 MEQ/L (136-145); TOTAL PROTEIN 7.5 GM/DL (6.4-8.2)
[2016-09-28] MEDS: HEPARIN SOD (PORCINE) 5000 UNITS/ML VIAL SQ SCH ×3 (05:13→21:20)
--- NOTE | 2016-09-28 08:12 | ECGEPIP ---
Stationary ECG Study [facility] - ED Test Date: 2016-09-27 Pat Name: JANENE FERNANDEZ Department: Room: [place] [address] Gender: F Failure Analysis Engineer: ct : 1960 Requested By: REGIS Viveros Order Number: [id number] Reading MD: Michelle Blake Measurements Intervals [place] Rate: 121 P: 59 DE: 96 QRS: 80 QRSD: 81 T: 57 QT: 292 QTc: 415 Interpretive Statements SINUS TACHYCARDIA WITH SHORT DE INTERVAL ABNORMAL RHYTHM ECG NSTTW ABNORMALITY LOW VOLTAGE LIMB NO PRIOR FOR COMPARISON Electronically Signed On 09-28-2016 8:12:35 EST by Michelle Blake
[2016-09-28 08:19] LABS: ABG BASE EXCESS 5.9 (-2.0-2.0); ABG HCO3 34.4 MEQ/L (22.0-26.0); ABG STANDARD HCO3 29.8 MEQ/L (22.0-26.0); ABG TOTAL CO2 36.7 MEQ/L (22.0-29.0); ABG pH (ARTERIAL) 7.294 UNITS (7.350-7.450)
[2016-09-28 08:22] LABS: ABG PARTIAL PRESSURE CO2 72.6 mmHg (35.0-45.0)
[2016-09-28] MEDS: IPRATROPIUM 0.5MG/ALBUTEROL 2.5MG INH SOL UD 3ML (DUONEB)(J7620) NEB SCH ×4 (08:35→20:28)
[2016-09-28] MEDS: ADVAIR DISKUS 500/50 INH PWD INH SCH ×2 (09:00→20:30)
[2016-09-28] MEDS ORDERED: SODIUM CHLORIDE HYPERTONIC 3% 15ML NEB SOL NEB ONE ×2 (10:00→12:00)
--- NOTE | 2016-09-28 11:20 | REP ---
Portable chest x-ray: Sitting AP view. History: Respiratory failure. Comparison chest x-ray September 27, 2016. There is interstitial lung disease diffusely and bilaterally in a pattern, which appears unchanged. Heart is at the upper range of normal in size. There is slight blunting of the right lateral pleural angle. No other evidence of pleural effusion seen. Oxygen delivery tubing and EKG electrodes are seen. Impression: Diffuse interstitial infiltrate pattern. Slight blunting of the right lateral pleural angle visible today. Signed by Rodger Quarles MD 09/28/2016 01:14 P
[2016-09-28] MEDS ORDERED: SLF 3 ML SYR IV PRN (12:15)
[2016-09-28] MEDS: SLF 3 ML SYR IV SCH ×2 (14:05→21:20)
[2016-09-28 14:26] LABS: ABG BASE EXCESS 6.5 (-2.0-2.0); ABG HCO3 34.9 MEQ/L (22.0-26.0); ABG PARTIAL PRESSURE O2 79.4 mmHg (75.0-100.0); ABG STANDARD HCO3 30.4 MEQ/L (22.0-26.0); ABG pH (ARTERIAL) 7.307 UNITS (7.350-7.450)
[2016-09-28 14:31] LABS: ABG PARTIAL PRESSURE CO2 71.3 mmHg (35.0-45.0)
[2016-09-28 21:00] LABS: ABG BASE EXCESS 5.6 (-2.0-2.0); ABG HCO3 33.3 MEQ/L (22.0-26.0); ABG PARTIAL PRESSURE O2 81.1 mmHg (75.0-100.0); ABG STANDARD HCO3 29.5 MEQ/L (22.0-26.0); ABG TOTAL CO2 35.3 MEQ/L (22.0-29.0); ABG pH (ARTERIAL) 7.323 UNITS (7.350-7.450)
[2016-09-28 21:02] LABS: ABG PARTIAL PRESSURE CO2 65.6 mmHg (35.0-45.0)
[2016-09-28] MEDS ORDERED: cefTRIAXone SOD 2 GM in D5W MINI-BAG PLUS 50 ML IV SCH (22:00)
--- NOTE | 2016-09-28 22:14 | REP ---
PA and lateral chest 09/27/2016 Indication: Shortness of breath Comparison: None Findings: The cardiac silhouette is of normal size. There is fullness/enlargement of the right hilum which may be secondary to adenopathy or pulmonary arterial hypertension. Extensive diffuse interstitial infiltrates with honeycomb pattern are seen throughout both lung borrego as can be seen with diffuse chronic interstitial fibrosis. The appearance suggests a chronic process. The bones are normal appearance. Impression Extensive diffuse interstitial infiltrates with the severe honeycomb pattern of interstitial fibrosis. Prominence of the right hilum may be secondary to adenopathy or pulmonary arterial hypertension. Recommend CT of the chest with IV contrast. Case discussed with CHALO Villalobos on 09/27/16 at 8 pm. Signed by Dayan Hadley MD 09/28/2016 10:06 P
[2016-09-28] MEDS: AZITHROMYCIN INJ 500 MG, VIAL MATE ADAPTER 1 EACH in D5W 250 ML IV SCH (22:39)
[2016-09-29] VITALS (12 sets, daily range): BP systolic 107–138; BP diastolic 57–80; O2SAT 96
[2016-09-29] MEDS: IPRATROPIUM 0.5MG/ALBUTEROL 2.5MG INH SOL UD 3ML (DUONEB)(J7620) NEB SCH ×7 (00:57→23:35)
[2016-09-29] MEDS: methylPREDNISolone INJ 125 MG/2 ML VIAL (J2930) IV SCH ×3 (04:31→20:54)
[2016-09-29] MEDS: PIPERACILLIN/TAZOBACTAM SOD 3.375 GM in D5W MINI-BAG PLUS 50 ML IV SCH ×4 (04:31→21:03)
[2016-09-29] MEDS: SLF 3 ML SYR IV SCH ×3 (04:32→21:02)
[2016-09-29 05:06] LABS: ANION GAP 4 MEQ/L (8-16); BLOOD UREA NITROGEN 16 MG/DL (7-18); CALCIUM LEVEL 8.9 MG/DL (8.5-10.1); CARBON DIOXIDE LEVEL 36 MEQ/L (21-32); CHLORIDE LEVEL 98 MEQ/L (98-107); GLOMERULAR FILTRATION RATE > 60.0 (>51); GLUCOSE, FASTING 144 MG/DL (70-105); POTASSIUM SERUM 4.4 MEQ/L (3.5-5.1); SODIUM LEVEL 138 MEQ/L (136-145)
[2016-09-29 05:12] LABS: EOS % 0.8 % (0.0-3.0); LARGE UNSTAINED CELL % 1.5 % (0.0-4.0); LYMPH # 0.1 K/mm3 (1.5-4.5); LYMPH % 4.5 % (24.0-44.0); MEAN CORPUSCULAR HEMOGLOBIN 24.5 pg (27.0-33.0); MEAN CORPUSCULAR HGB CONC 29.5 g/dl (32.0-36.5); MEAN CORPUSCULAR VOLUME 82.9 fl (80.0-96.0); MONO # 0.1 K/mm3 (0.0-0.8); MONO % 3.7 % (0.0-5.0); NEUTROPHILS # 2.6 K/mm3 (1.8-7.7); NEUTROPHILS % 89.4 % (36.0-66.0); PLATELET COUNT, AUTOMATED 194 k/mm3 (150-450); RED CELL DISTRIBUTION WIDTH 17.3 % (11.5-14.5); WHITE BLOOD COUNT 2.9 K/mm3 (4.0-10.0)
[2016-09-29] MEDS: HEPARIN SOD (PORCINE) 5000 UNITS/ML VIAL SQ SCH ×3 (05:19→21:02)
--- NOTE | 2016-09-29 07:26 | ECHO ---
DATE OF PROCEDURE: 09/28/2016 REFERRING PHYSICIAN: Dr. Zhou INDICATION: Dyspnea. HEIGHT: 66 inches WEIGHT: 163 pounds MEASUREMENTS: Aortic root: 2.9 cm Proximal ascending aorta: 3.0 cm Left atrium: 3.5 cm Left ventricle diastole: 5.1 cm Ventricular septum: 1.08 cm Posterior wall: 1.17 cm Right ventricle: 4.2 cm Inferior vena cava: 2.1 cm with approximately 50% respiratory variation. DOPPLER MEASUREMENTS: Aortic valve velocity: 153 cm/s LVOT velocity: 143 cm/s LVOT VTI: 28.0 cm Very mild mitral regurgitation. Mitral E velocity: 109 cm/s Mitral A velocity: 139 cm/s Mitral deceleration time: 224 ms Mild tricuspid regurgitation. Estimated right ventricle systolic pressure 44 mmHg assuming a right atrial pressure of 10 mmHg. MITRAL ANNULAR TISSUE DOPPLER: E prime lateral: 8.0 cm/s E prime septal: 6.3 cm/s DESCRIPTION: Rhythm was sinus. Image quality was fair. No pericardial effusion. This is a 2D, M-mode, color flow Doppler and pulse wave Doppler examination that included mitral annular tissue Doppler. CONCLUSIONS: 1. Suggestive of moderate elevation of estimated right ventricle systolic pressure (44 mmHg). Normal right ventricle size and systolic function. Suggestive of central venous pressure of 10 mmHg at the time of the study. 2. Normal left ventricle internal dimensions and wall thickness. Normal left ventricle (LV) wall motion and wall thickening. Normal LV systolic function. Left ventricular ejection fraction (LVEF) 65-75% by visual estimate. 3. Grade I LV diastolic dysfunction. 4. Otherwise normal appearing echocardiogram Doppler.
[2016-09-29 09:07] LABS: ABG BASE EXCESS 2.4 (-2.0-2.0); ABG HCO3 30.2 MEQ/L (22.0-26.0); ABG PARTIAL PRESSURE O2 86.4 mmHg (75.0-100.0); ABG STANDARD HCO3 26.5 MEQ/L (22.0-26.0); ABG TOTAL CO2 32.2 MEQ/L (22.0-29.0)
[2016-09-29 09:10] LABS: ABG PARTIAL PRESSURE CO2 64.3 mmHg (35.0-45.0)
--- NOTE | 2016-09-29 09:16 | IPN ---
DATE: 09/28/2016 Patient admitted overnight. Currently on intermittent bilevel positive airway pressure (BiPAP) for hypercarbic respiratory failure. Continues to have dyspnea. Patient has been getting progressively worse over the past month. Patient has cough but does not produce any sputum. Denies any fevers, chills, chest pain, pressure or discomfort. Refused HIV test. VITAL SIGNS: Temperature 98.1, pulse 98, respirations 32, blood pressure 116/65, pulse oximetry 96% on 30% FiO2. LABORATORY DATA: WBC 3.1, hemoglobin and hematocrit 10/34.7, platelets 170. Chemistry: Sodium 140, potassium 4.5, chloride 101, bicarbonate 36, BUN 15, creatinine 0.72. PHYSICAL EXAMINATION: GENERAL: Patient is ill-appearing, on bilevel positive airway pressure (BiPAP) with dyspnea, able to speak, cooperative, follows commands. HEENT: Normocephalic, atraumatic. NECK: Supple. Trachea midline. CARDIAC: Mild tachycardia, regular, S1, S2. PULMONARY: Coarse breath sounds bilaterally, prolonged expiratory phase, diffuse rhonchi. ABDOMEN: Soft, nontender, nondistended. Positive bowel sounds. EXTREMITIES: 1+ bilateral lower extremity edema. ASSESSMENT AND PLAN: This is a 56-year-old female patient with no known past medical history, smoker, was brought in by family for progressively worsening shortness of breath, onset of symptoms was pretty unclear. 1. Shortness of breath with acute hypoxic hypercarbic respiratory failure. Possible etiology includes infectious versus chemical pneumonitis versus sarcoidosis versus atypical pneumonia with pneumocystis pneumonia (PCP) versus connective tissue disorder. Followup rheumatologic workup has been sent. Patient currently on bilevel positive airway pressure (BiPAP). Pulmonology consulted. Arterial blood gases (ABGs) appreciated. Nebulizer treatments, steroids. Respiratory panel negative. Blood cultures. Patient is placed on Zosyn and azithromycin. Sputum induction for PCP. Sputum cytology. Methicillin-resistant Staphylococcus aureus (MRSA) screening, culture and Gram-staining. Patient refused HIV. We will followup pulmonology's recommendations. We will consider bronchoscopy if the patient does not improve. We will consider consulting infectious disease on Friday. 2. Leukemia, reason unclear. We will check CD4 counts. Followup blood culture. Continue antibiotics as mentioned above. 3. Anemia. Followup hemoglobin and hematocrit, transfuse as needed. Somewhat at the patient's baseline. 4. Deep vein thrombosis (DVT) prophylaxis. Heparin subcutaneous. DISPOSITION PLANNING: Patient remains critical with pending respiratory failure, currently monitored in the intensive care unit (ICU).
--- NOTE | 2016-09-29 10:33 | CCN ---
PULMONARY CONSULTATION/CRITICAL CARE NOTE: 09/28/2016 REFERRING PHYSICIAN: Juan Lane MD REASON FOR CONSULTATION: Asked by Dr. Lane to evaluate Ms. Perales for acute and chronic hypercapnic respiratory failure as well as a markedly abnormal chest CT scan. Ms. Perales is a 56-year-old female who does not participate in the healthcare system. Apparently she has noted progressive shortness of breath over the past year, which has accelerated over the last month. She is at the point now where she can only walk perhaps 10 feet without resting. Her family convinced her to come to the emergency department. She notes a cough that is typically dry. Today is the first day she expectorated any sputum. She occasionally has chest pain in the upper portion of the sternum that is very transient. No fevers. No paroxysmal nocturnal dyspnea (PND), orthopnea, no drenching night sweats. She had pedal edema on presentation although she states that that was new from sitting in a chair a lot recently and that she does not typically have edema. She has postnasal drip. She has occasional gastroesophageal reflux disease (GERD) symptoms. No nausea or emesis. No diarrhea or constipation. It is less clear as to whether or not she may have lost weight as her family thinks she may have, but she is not certain. In the emergency department she was found to have acute and chronic respiratory failure and was placed on noninvasive mechanical ventilation. I made some manipulations to those settings and she is slowly improving. She was given azithromycin and ceftriaxone in the emergency department as well as systemic corticosteroids. Currently, she states she "does not feel sick" and does not like the [facility]. MEDICATIONS ON ADMISSION: - as needed ibuprofen ALLERGIES: No known drug allergies. PAST MEDICAL HISTORY: History of tobacco usage. SOCIAL HISTORY: Ms. Perales is given various tobacco histories. To me she reports she started around age 23 and smoked 1/2 to 2 cigarettes per day. She tells me she never smoked over 2 cigarettes per day and that she quit a year to a year and a half ago. She has not smoked any street drugs or taken them orally or by IV. She has parakeets as a pet, which are new to her home. She has not previously owned birds. She has lived or traveled in [place], [place], [place] and [place]. She worked in [employer] most of her life and currently works at [employer]. No exposure to tuberculosis or asbestos. No significant inhalation injury. FAMILY HISTORY: Her father has hypertension. Her mother is alive and well and has no significant medical problems. Her siblings are all healthy. She knows of no family history of any lung disease. REVIEW OF SYSTEMS: Per HPI. Remainder of review of systems are negative including no hematuria and no myalgias or arthralgias. PHYSICAL EXAMINATION: GENERAL: Ms. Perales is lying in bed in no apparent distress wearing a full face mask. She remains tachypneic. No cough during the evaluation. VITAL SIGNS: Temperature 97.4, which is her T-max. Respiratory rate in the high 20s, low 30s. Pulse in the low 100s. Blood pressure 125/71 with MAB of 89. SpO2 94% on an FiO2 of 0.3 via the noninvasive mechanical ventilation. HEENT: Anicteric, pupils equal, round, reactive to light and accommodation. Nares and oropharynx not examined secondary to full face mask. NECK: Supple, without appreciable jugular venous distention (JVD), without thyromegaly, masses. Trachea is midline. LYMPHS: Without cervical or supraclavicular lymphadenopathy. CHEST: Normal shape. LUNGS: Symmetric excursion. Diffuse fine crackles anteriorly and posteriorly. No rhonchi. No wheezing. Normal I to E. No accessory muscle usage or retractions. CARDIOVASCULAR: Tachycardic, regular rhythm. Normal S1, S2. No murmur, rub or gallop appreciated. ABDOMEN: Positive bowel sounds, soft, nondistended, nontender, no hepatomegaly. No masses appreciated. EXTREMITIES: Without clubbing or cyanosis. There is trace to 1+ pedal edema bilaterally. Palpable pedal pulses bilaterally. NEUROLOGICAL: Alert, awake and oriented times three. No focal deficits. LABORATORY DATA: Admitting CBC (before receiving any medications) showed a hemoglobin of 11.0, hematocrit 37.5, platelet count 195,000, white blood cell count 3000 with a differential of 75% neutrophils, 13% lymphs and 6% monocytes. ALC was 400. Repeat later in the day showed a hemoglobin of 10.0, hematocrit 34.7, platelet count 170,000, white blood cell count 3100 with a differential of 82% neutrophils, 8.8% lymphocytes and 5% monocytes. This was drawn after having received systemic corticosteroids. Chemistries showed a sodium 140, potassium 4.5, chloride 101, bicarbonate 36, BUN 15, creatinine 0.7, anion gap 3, glucose 122, lactic acid 0.6, calcium 8.5, total bilirubin 0.2, AST 14, ALT 15, alkaline phosphatase 74, LDH 205, C-reactive protein 1.46, BNP 59.9, total protein 7.5, albumin 2.7. D-dimer was 2132. Rheumatoid factor was 202. Her respiratory panel was negative. Her UA was negative for blood and only 2 RBC (clean catch). Her initial arterial blood gas was 7.31/71/83 with a measured saturation of 95% and a base excess of 6.4. Her pH worsened on noninvasive with a darinel of 7.28/77/94 with a measured saturation of 97%. I reviewed her chest CT scan from last evening as well as the report. That CT scan showed normal appearing cardiac silhouette and pulmonary vascular shadow. There is no apparent lymphadenopathy. There are bilateral cystic type changes, more so in the upper lobes, but part way to the midlung on the right. There is diffuse interstitial infiltrates. There is a small right pleural effusion. I reviewed her chest x-ray as well as her report from this morning and that showed diffuse interstitial infiltrates and blunting of the right costophrenic angle. No change from her chest x-ray from 09/27/2016. IMPRESSION: 1. Acute on chronic hypercapnic respiratory failure. 2. Abnormal chest x-ray/chest CT scan. She has cystic type changes bilaterally that is greatest in the upper lobes, as well as diffuse interstitial infiltrates. The differential is quite broad. This may range from emphysema which is more noticeable because of interstitial infection which would likely be viral versus atypical, versus an interstitial lung disease related to connective tissue process or rheumatoid arthritis versus sarcoidosis versus Langerhans cell versus other. Hypersensitivity pneumonitis and inhalation injury would be in the differential, but I cannot identify a history that would support either of these (parakeets were obtained June of 2016 and are unlikely the cause of hypersensitivity pneumonitis). Also needed to be included in the differential would be pneumocystis carinii which can present insidiously. She has an ALC of 400 on presentation and no obvious reason for that value. 3. Leukopenia. 4. Dyspnea on examination likely related to the same process that is responsible for her chest CT changes. However, given her lower extremity edema and her abnormal chest CT scan she is at risk to have developed pulmonary hypertension. 5. Deep venous thrombosis (DVT) prophylaxis in place with Sequential compression devices (SCDs), thromboembolism deterrents (TEDs) and subcutaneous heparin. RECOMMENDATIONS: 1. Agree with antibiotics although it seems that a bacterial infection is least likely to cause her difficulties. 2. Agree with systemic corticosteroids. 3. Ms. Perales was asked for a HIV test, but declined. 4. I would recommend a CD4 count given her ALC total on presentation to the hospital. 5. Will send a UA to look for hematuria. 6. Will send an REINA level although that is nonspecific for sarcoidosis. 7. A connective tissue profile has been sent. I will add an RA to that profile. 8. We will continue the NIMV until we are able to more effectively correct her respiratory acidemia. 9. I spent considerable time speaking with Ms. Perales as she is very reluctant to stay in the hospital. She had trouble understanding as to why we could not pinpoint an exact diagnosis at this time. 10. At some point, depending on she does clinically, we may need to proceed with bronchoscopy and transbronchial bronchoscopy or even an open lung biopsy. This was not specifically discussed with Ms. Perales. Critical care time: 80 minutes not including procedure time. ANGELINE
[2016-09-29] MEDS: ADVAIR DISKUS 500/50 INH PWD INH SCH ×2 (13:30→21:00)
--- NOTE | 2016-09-29 20:55 | REP ---
AP portable chest 09/29/2016 Indication: Reported failure Comparison: Portable chest radiograph 09/28/2016, 09/27/2016, CT chest with contrast 09/27 17 Cardiac silhouette is borderline enlarged without change. There is ectasia within the thoracic aorta. The patient does have mediastinal adenopathy, and some calcified nodes better seen on recent CT of chest. Diffuse interstitial infiltrates appear minimally improved. Mary is minimal residual right basilar pleural effusion Impression: Cardiac silhouette borderline enlarged, stable. Mediastinal adenopathy Very minimal improvement in the appearance of the diffuse interstitial infiltrates; biapical cystic changes are unchanged Minimal right basilar pleural effusion. Signed by Dayan Hadley MD 09/29/2016 08:47 P
[2016-09-29] MEDS: AZITHROMYCIN INJ 500 MG, VIAL MATE ADAPTER 1 EACH in D5W 250 ML IV SCH (22:26)
[2016-09-30] VITALS (8 sets, daily range): BP systolic 119–137; BP diastolic 62–78
--- NOTE | 2016-09-30 03:28 | EDDOCDS ---
Nurse's Notes [facility] Name: Finn Perales Age: 56 yrs Sex: Female : 1960 Arrival Date: 09/27/2016 Time: 18:05 Bed 13 Private MD: NO PRIMARY PHYSICIAN, . Diagnosis: Other pneumonia, unspecified organism-bilateral;Emphysema-bilateral apical;Acute respiratory failure with hypercapnia Presentation: 09/27 18:09 Presenting complaint: son states cough started a month ago. gotten worse with SOB for 2 rs3 weeks. has not seen anybody. no h/o asthma. chest tightness, SOB, cough worse today. Aspirin was not taken prior to arrival. Adult Sepsis Screening: The patient does not have new or worsening altered mentation. Patient has a respiratory rate of greater than or equal to 22 (1 point). Systolic blood pressure is greater than 100. Patient has a qSOFA score of 1- Negative Sepsis Screen. Suicide/Homicide risk assessment- the patient denies having any suicidal and/or homicidal ideations and does not present with any other emotional, behavioral or mental health complaints. 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 Transition of care: patient was not received from another setting of care. 18:09 Acuity: CRISTAL Level 3 rs3 18:09 Method Of Arrival: Walkin/Carried/Asstd rs3 Triage Assessment: 18:12 General: Appears in no apparent distress. Pain: Location: chest. HIV screening NA for rs3 this visit Offered previously. Cardiovascular: Chest pain is described as Pain is 5 out of 10 on a pain scale. radiates Does not radiate. episodes are intermittent began one month. Historical: - Allergies: no known allergies; - Home Meds: 1. none - PMHx: none; - PSHx: none; - Social history: Smoking status: Patient states former smoker of tobacco. No barriers to communication noted, The patient speaks fluent Uzbek. - Family history: Not pertinent. - : The pt / caregiver states he / she is not on anticoagulants. Home medication list is obtained from the patient. - Exposure Risk Screening:: None identified. Screenin:40 Screening information is obtained from the patient. Fall risk: No risks identified. ld5 Assistance ADL's: requires no assistance with activities of daily living. Abuse/DV Screen: The patient / caregiver reports he/she is: not in a situation that causes fear, pain or injury. Nutritional screening: No deficits noted. Advance Directives: There is no active DNR order. home support is adequate. Assessment: 18:30 General: Appears in no apparent distress, Behavior is appropriate for age, cooperative. dy 18:30 Pain: Denies pain. Neurological: Level of Consciousness is awake, alert, obeys dy commands, Oriented to person, place, time, Pupils are PERRLA. Cardiovascular: Heart tones S1 S2 Edema is 2+ to left midcalf, left ankle, left foot, right midcalf and right ankle Rhythm is regular. Respiratory: Airway is patent Respiratory effort is even, labored, Breath sounds are coarse Breath sounds with crackles inspiratory expiratory bilaterally. Derm: Skin is pink, warm & dry. 19:05 General: Appears in no apparent distress, Behavior is cooperative. Pain: Denies pain. ld5 Neurological: Level of Consciousness is awake, obeys commands. Respiratory: Airway is patent Respiratory effort is even, labored. GI: Bowel sounds present X 4 quads. Abd is soft and non tender X 4 quads. Denies nausea, vomiting. 19:05 Respiratory: Airway is patent Breath sounds are coarse bilaterally. Breath sounds are ld5 diminished bilaterally. Reports shortness of breath at rest on exertion cough that is non-productive, labored breathing. 20:14 General: Blood work obtained. Pt denies pain. States getting "restless". Railings ld5 placed down. TV placed within pt's reach. Call musa within reach. Family member at bedside. Will continue to monitor. 21:09 General: Pt returned from CT. Became SOB when asked to lay flat. Pt reports nervous ld5 about scan. This RN discussed scan to pt. Pt appeared to relax. Pt able to make it through scan with minimal distress. Will continue to monitor. 22:00 General: Pt sitting up in bed with eyes closed. Family at bedside. No apparent ld5 distress. Call musa within reach. Will continue to monitor. 23:00 General: Antibiotic started per orders. RT in room as pt was just started on BiPap. Pt ld5 and family made aware of POC. Denies any needs at this time. Will continue to monitor. 23:30 General: Pt dislikes mask from bipap machine. Requesting it be removed. It was ld5 explained to pt and family members that ABG would be repeated at 0000 and bipap may be removed pending results. Pt agreeable. Will continue to monitor. 23:50 General: Second antibiotic infusing. Pt aware of plan for ICU admission. Will continue ld5 to monitor. 09/28 00:06 General: Spoke with ICU regarding report. Will call back. ld5 00:42 General: Pt up to commode. Tolerated well. Again requesting to take bipap mask off. ld5 Repeat ABG pending. Will continue to monitor. 01:00 General: Pt requesting water. Pt NPO at this time. Will continue to monitor. ld5 01:20 General: Pt sitting up in bed and appears to be sleeping. BiPap remains in place. ld5 Awaiting ICU call regarding report. Will continue to monitor. 02:11 General: Appears in no apparent distress. Pain: Denies pain. Respiratory: Airway is ld5 patent. Vital Signs: 09/27 18:06 BP 185 / 93; Pulse 127; Resp 24 S; Temp 97.7(O); Pulse Ox 68% on R/A; Weight 83.91 kg dd6 (R); Height 5 ft. 6 in. (167.64 cm) (R); 18:25 Pulse 122 MON; Pulse Ox 67% ; dy 18:30 Pulse 110 MON; Pulse Ox 99% ; dy 18:30 BP 173 / 91 (auto/); dy 19:30 BP 157 / 82 (auto/); ld5 19:30 Pulse 104 MON; Pulse Ox 98% ; ld5 20:30 BP 162 / 94 (auto/); ld5 20:30 Pulse 100 MON; Pulse Ox 97% on 4 lpm NC; ld5 20:45 BP 164 / 93 (auto/); ld5 20:45 Pulse 98 MON; Pulse Ox 96% on 4 lpm NC; ld5 21:07 BP 169 / 89 (auto/); ld5 21:09 Pulse 112 MON; Resp 22; Temp 97.3(O); Pulse Ox 94% on 4 lpm NC; ld5 21:30 BP 165 / 87 (auto/); ld5 21:30 Pulse 100 MON; Pulse Ox 94% on 4 lpm NC; ld5 22:00 BP 185 / 86 (auto/); ld5 22:00 Pulse 104 MON; Pulse Ox 97% on 4 lpm NC; ld5 22:30 BP 164 / 92 (auto/); ld5 22:30 Pulse 96 MON; Pulse Ox 96% on 4 lpm NC; ld5 23:00 BP 173 / 93 (auto/); ld5 23:00 Pulse 104 MON; Pulse Ox 93% on BiPAP; ld5 23:30 BP 162 / 80 (auto/); ld5 23:32 Pulse 90 MON; Temp 98; Pulse Ox 98% on BiPAP; ld5 09/28 00:37 BP 140 / 74 (auto/); ld5 00:53 Pulse 86 MON; Pulse Ox 97% on 40% BiPAP; ld5 01:00 BP 105 / 57 (auto/); ld5 01:00 Pulse 84 MON; Resp 22; Pulse Ox 97% ; ld5 01:30 BP 131 / 69 (auto/); ld5 01:30 Pulse 84 MON; Resp 22; Temp 98.1; Pulse Ox 97% on 40% BiPAP; ld5 02:00 BP 135 / 74 (auto/); ld5 02:00 Pulse 84 MON; Pulse Ox 99% on 40% BiPAP; ld5 09/27 18:06 Body Mass Index 29.86 (83.91 kg, 167.64 cm) dd6 Vitals: 09/27 18:06 Log In Time: September 27, 2016 at 18:04. RN notified that patient meets Red Flag dd6 criteria. ED Course: 18:06 Patient visited by Doe Richey PCA. dd6 18:06 NO PRIMARY PHYSICIAN, . is Private Physician. dd6 18:06 Patient moved to Waiting dd6 18:08 Patient moved to Pre RCE dd6 18:10 Triage Initiated rs3 18:14 Patient moved to PD2 / rs3 18:19 Taylor Dexter, RN is Primary Nurse. dwg 18:19 Patient moved to 13 dwg 18:26 O2 via nasal cannula \\T\\ 4L/min. dy 18:26 Inserted saline lock: 18 gauge in left antecubital area and blood collected. The dy patient tolerated the procedure well. 18:28 Accompanied by Family Member, Patient has correct armband on for positive ct3 identification. Placed in gown. Bed in low position. Call light in reach. Side rails up X 1. monitoring manager on. Pulse ox on. NIBP on. 18:28 EKG done. (by ED staff). Reviewed by Jared Yen MD. ct3 18:29 Patient visited by Luna Barboza PCA. ct3 18:36 Luciana Villalobos FNP is PHCP. le 18:36 B-Type Natiuretic Peptide Sent. dy 18:36 Basic Metabolic Profile Sent. dy 18:36 CBC with Diff Sent. dy 18:36 Cardiac Injury Profile Sent. dy 18:36 Troponin Sent. dy 18:39 Patient visited by Juan Martinez RN. dy 18:39 The patient / caregiver is instructed regarding the plan of care and ED course. dy 18:40 Patient visited by Luciana Villalobos FNP. le 18:40 Patient visited by Luciana Villalobos FNP. le 18:56 Primary Nurse role handed off by Taylor Dexter RN jjr 19:40 Patient visited by Lissa Renee RN. ld5 19:40 No procedures done that require assistance. ld5 19:41 Patient visited by Lissa Renee RN. ld5 19:48 [facility] Payment Agreement was scanned into [employer] and attached to record. jp5 20:02 Patient visited by Lissa Renee RN. ld5 20:14 BLOOD CULTURES Sent. ld5 20:14 -Blood Culture Sent. ld5 20:15 Patient visited by Lissa Renee RN. ld5 20:39 Patient name changed from Cherrel\\S\\\\S\\Angella\\S\\ to Cherrel\\S\\ \\S\\Angella. EDMS 21:09 Patient visited by Lissa Renee RN. ld5 21:54 Patient visited by Lissa Renee RN. ld5 22:04 -Arterial Blood Gas Sent. rs5 22:16 Patient visited by Lissa Renee RN. ld5 22:24 CT Chest With Contrast Returned. EDMS 22:44 Patient visited by Lissa Renee RN. ld5 22:44 Lactic Acid (Drake tube on ice) Sent. ld5 23:08 Patient visited by Lissa Renee RN. ld5 23:26 Patient visited by Lissa Renee RN. ld5 23:[address] MD is Hospitalizing Provider. le 09/28 00:07 Patient visited by Lissa Renee RN. ld5 00:14 ARTERIAL BLOOD GAS Sent. bb3 00:55 Patient visited by Lissa Renee RN. ld5 01:22 Patient visited by Lissa Renee,IVAN. ld5 01:49 Patient visited by Lissa Renee,RN. ld5 02:15 Patient visited by Lissa Renee,IVAN. ld5 10:00 T-Sheet-- Draft Copy was scanned into [employer] and attached to record. gb 10:01 ECG/EKG was scanned into [employer] and attached to record. gb Administered Medications: 09/27 22:54 Drug: Albuterol-Ipratropium 3 ml [ipratropium-albuterol 0.5 mg-3 mg(2.5 mg base)/3 mL bb3 nebulization soln (3 mL)] Route: Inhalation; 23:00 Drug: cefTRIAXone 2 grams [ceftriaxone 1 gram solution for injection] Route: IVPB; ld5 Infused Over: 30 mins; Site: left antecubital; 23:30 Follow up: IV Status: Completed infusion; IV Intake: 50ml ld5 23:45 Drug: azithromycin 500 mg [azithromycin 500 mg intravenous solution] Route: IVPB; ld5 Infused Over: 1 hrs; Site: left antecubital; 09/28 01:42 Follow up: IV Status: Completed infusion; IV Intake: 250ml ld5 Intake: 09/27 23:30 IV: 50.00ml; Total: 50.00ml. ld5 09/28 01:42 IV: 250.00ml; Total: 300.00ml. ld5 RT: 09/27 22:04 ABG's drawn from left radial artery allens test done and positive pressure held for 5 rs5 minutes no bleeding noted pressure bandage applied specimen sent pt. tolerated well. 22:53 BIPAP: Inspiratory Pressure: 10, Expiratory Pressure: 4, Backup Rate: 8, FiO2: 30%, bb3 Full face fask. Respiratory: Respiratory effort is even, unlabored, Respiratory pattern is regular symmetrical, sp02 97%. 22:55 Respiratory: Breath sounds are coarse Breath sounds with crackles bilaterally. Denies bb3 shortness of breath at rest, past baseline. 22:56 Initial Med Neb Given as ordered Patient was instructed and evaluated on procedure. bb3 23:15 Respiratory: Breath sounds are coarse bilaterally. bb3 23:16 Respiratory: pt tolerating BIPAP well. vt trending 350-400ml. respirations trending mid bb3 to low 30s non labored. 09/28 00:14 ABG's drawn from right radial artery pressure held for 5 minutes no bleeding noted bb3 pressure bandage applied specimen sent pt. tolerated well. Respiratory: BIPAP 10/4 30%. 00:41 BIPAP: Inspiratory Pressure: 14, Expiratory Pressure: 4, FiO2: 40%, Full face fask. bb3 Respiratory: changed per ABG results and conversation with Dr. Lane. Order Results: Lab Order: B-Type Natiuretic Peptide; SPEC'M 09/27/16 18:32 Test: BRAIN NATRIURETIC PEPTIDE; Value: 59.9; Range: <100; Units: PG/ML; Status: F Lab Order: Basic Metabolic Profile; SPEC'M 09/27/16 18:32 Test: GLUCOSE, FASTING; Value: 132; Range: 70-105; Abnormal: Above high normal; Units: MG/DL; Status: F Test: BLOOD UREA NITROGEN; Value: 18; Range: 7-18; Units: MG/DL; Status: F Test: CREATININE FOR GFR; Value: 0.81; Range: 0.55-1.02; Units: MG/DL; Status: F Test: GLOMERULAR FILTRATION RATE; Value: > 60.0; Range: >51; Status: F Test: SODIUM LEVEL; Value: 140; Range: 136-145; Units: MEQ/L; Status: F Test: POTASSIUM SERUM; Value: 3.9; Range: 3.5-5.1; Units: MEQ/L; Status: F Test: CHLORIDE LEVEL; Value: 99; Range: 98-107; Units: MEQ/L; Status: F Test: CARBON DIOXIDE LEVEL; Value: 36; Range: 21-32; Abnormal: Above high normal; Units: MEQ/L; Status: F Test: ANION GAP; Value: 5; Range: 8-16; Abnormal: Below low normal; Units: MEQ/L; Status: F Test: CALCIUM LEVEL; Value: 9.1; Range: 8.5-10.1; Units: MG/DL; Status: F Test Note: ; Units are mL/min/1.73 m2 Chronic Kidney Disease Staging per NKF: Stage I & II GFR >=60 Normal to Mildly Decreased Stage III GFR 30-59 Moderately Decreased Stage IV GFR 15-29 Severely Decreased Stage V GFR <15 Very Little GFR Left ESRD GFR <15 on GUIDE DELEGATE Lab Order: CBC with Diff; SPEC'M 09/27/16 18:32 Test: WHITE BLOOD COUNT; Value: 3.0; Range: 4.0-10.0; Abnormal: Below low normal; Units: K/mm3; Status: F Test: RED BLOOD COUNT; Value: 4.56; Range: 4.00-5.40; Units: M/mm3; Status: F Test: HEMOGLOBIN; Value: 11.0; Range: 12.0-16.0; Abnormal: Below low normal; Units: g/dl; Status: F Test: HEMATOCRIT; Value: 37.5; Range: 36.0-47.0; Units: %; Status: F Test: MEAN CORPUSCULAR VOLUME; Value: 82.1; Range: 80.0-96.0; Units: fl; Status: F Test: MEAN CORPUSCULAR HEMOGLOBIN; Value: 24.2; Range: 27.0-33.0; Abnormal: Below low normal; Units: pg; Status: F Test: MEAN CORPUSCULAR HGB CONC; Value: 29.4; Range: 32.0-36.5; Abnormal: Below low normal; Units: g/dl; Status: F Test: RED CELL DISTRIBUTION WIDTH; Value: 17.4; Range: 11.5-14.5; Abnormal: Above high normal; Units: %; Status: F Test: PLATELET COUNT, AUTOMATED; Value: 195; Range: 150-450; Units: k/mm3; Status: F Test: NEUTROPHILS %; Value: 75.3; Range: 36.0-66.0; Abnormal: Above high normal; Units: %; Status: F Test: LYMPH %; Value: 13.1; Range: 24.0-44.0; Abnormal: Below low normal; Units: %; Status: F Test: MONO %; Value: 5.7; Range: 0.0-5.0; Abnormal: Above high normal; Units: %; Status: F Test: EOS %; Value: 2.4; Range: 0.0-3.0; Units: %; Status: F Test: BASO %; Value: 0.6; Range: 0.0-1.0; Units: %; Status: F Test: LARGE UNSTAINED CELL %; Value: 3.0; Range: 0.0-4.0; Units: %; Status: F Test: NEUTROPHILS #; Value: 2.3; Range: 1.8-7.7; Units: K/mm3; Status: F Test: LYMPH #; Value: 0.4; Range: 1.5-4.5; Abnormal: Below low normal; Units: K/mm3; Status: F Test: MONO #; Value: 0.2; Range: 0.0-0.8; Units: K/mm3; Status: F Test: EOS #; Value: 0.1; Range: 0.0-0.50; Units: K/mm3; Status: F Test: BASO #; Value: 0.0; Range: 0.0-0.2; Units: K/mm3; Status: F Test: LARGE UNSTAINED CELL #; Value: 0.1; Range: 0.0-0.4; Units: K/mm3; Status: F Lab Order: Cardiac Injury Profile; SPEC'M 09/27/16 18:32 Test: CPK CREATINE PHOSPHOKINASE; Value: 39; Range: 26-192; Units: U/L; Status: F Test: CK-MB VALUE MASS; Value: 1.0; Range: 0.0-3.6; Units: NG/ML; Status: F Test: MB/CK RELATIVE INDEX; Value: 2.56; Range: < OR =4; Status: F Test Note: ; DIAGNOSIS CRITERIA MMB ng/ml Relative Index (RI) NON-AMI < or = 5 N/A DRAKE ZONE > 5 < or = 4 AMI > 5 > 4 Lab Order: Troponin; SPEC'M 09/27/16 18:32 Test: TROPONIN I; Value: < 0.02; Range: < 0.10; Units: NG/ML; Status: F Test Note: ; Troponin I Reference Interval for [employer] LOCI: 99th Percentile= 0.00-0.045 ng/ml Risk Stratification: <= 0.10 ng/ml Decreased Risk for Adverse Clinical Events. 0.10-1.50 ng/ml Increased Risk for Adverse Clinical Events. Evaluation of additional criterion and/or repeat testing in 2-6 hours is suggested to rule out myocardial damage. >= 1.50 ng/ml Indicative of Myocardial Injury. Lab Order: RBC MORPH PROF NO CHARGE; SPEC'M 09/27/16 18:32 Test: PLATELET ESTIMATE; Range: NORMAL; Status: I Test: HYPOCHROMASIA; Value: 2+; Status: F Test: BASOPHILIC STIPPLING; Value: 1+; Status: F Test: ANISOCYTOSIS; Value: 1+; Status: F Test: PLATELET ESTIMATE; Value: NORMAL; Range: NORMAL; Status: F Lab Order: D-Dimer Quant; SPEC'M 09/27/16 18:32 Test: D-DIMER QUANT; Value: 2131.8; Range: <500; Abnormal: Above high normal; Units: ng/ml; Status: F Lab Order: -Arterial Blood Gas; SPEC'M 09/27/16 21:56 Test: ABG pH (ARTERIAL); Value: 7.313; Range: 7.350-7.450; Abnormal: Below low normal; Units: UNITS; Status: F Test: ABG PARTIAL PRESSURE CO2; Value: 70.6; Range: 35.0-45.0; Abnormal: Above upper panic limits; Units: mmHg; Status: F Test: ABG PARTIAL PRESSURE O2; Value: 83.3; Range: 75.0-100.0; Units: mmHg; Status: F Test: ABG TOTAL CO2; Value: 37.2; Range: 22.0-29.0; Abnormal: Above high normal; Units: MEQ/L; Status: F Test: ABG HCO3; Value: 35.0; Range: 22.0-26.0; Abnormal: Above high normal; Units: MEQ/L; Status: F Test: ABG BASE EXCESS; Value: 6.7; Range: -2.0-2.0; Abnormal: Above high normal; Status: F Test: ABG STANDARD HCO3; Value: 30.6; Range: 22.0-26.0; Abnormal: Above high normal; Units: MEQ/L; Status: F Test: ABG O2 SATURATION; Value: 95.4; Range: 95.0-99.0; Units: %; Status: F Test: ABG DEVICE; Value: NASAL KAZ; Status: F Lab Order: Lactic Acid (Drake tube on ice); SPEC'M 09/27/16 22:41 Test: LACTIC ACID LEVEL, LACTATE; Value: 0.6; Range: 0.4-2.0; Units: MMOL/L; Status: F Lab Order: ARTERIAL BLOOD GAS; SPEC'M 09/28/16 00:07 Test: ABG pH (ARTERIAL); Value: 7.277; Range: 7.350-7.450; Abnormal: Below low normal; Units: UNITS; Status: F Test: ABG PARTIAL PRESSURE CO2; Value: 72.7; Range: 35.0-45.0; Abnormal: Above upper panic limits; Units: mmHg; Status: F Test: ABG PARTIAL PRESSURE O2; Value: 68.5; Range: 75.0-100.0; Abnormal: Below low normal; Units: mmHg; Status: F Test: ABG TOTAL CO2; Value: 35.4; Range: 22.0-29.0; Abnormal: Above high normal; Units: MEQ/L; Status: F Test: ABG HCO3; Value: 33.2; Range: 22.0-26.0; Abnormal: Above high normal; Units: MEQ/L; Status: F Test: ABG BASE EXCESS; Value: 4.5; Range: -2.0-2.0; Abnormal: Above high normal; Status: F Test: ABG STANDARD HCO3; Value: 28.4; Range: 22.0-26.0; Abnormal: Above high normal; Units: MEQ/L; Status: F Test: ABG O2 SATURATION; Value: 90.5; Range: 95.0-99.0; Abnormal: Below low normal; Units: %; Status: F Lab Order: C REACTIVE PROTEIN QUANTITATIV; SPEC'M 09/27/16 18:32 Test: C REACTIVE PROTEIN QUANTITATIV; Value: 1.46; Range: 0.00-0.30; Abnormal: Above high normal; Units: MG/DL; Status: F Lab Order: ERYTHROCYTE SEDIMENTATION RATE; SPEC'M 09/27/16 18:32 Test: ERYTHROCYTE SEDIMENTATION RATE; Value: 16; Range: 0-30; Units: mm/hr; Status: F Radiology Order: CT Chest With Contrast Test: CT Chest With Contrast REASON FOR EXAMINATION: Shortness of Breath; ; CT of the chest; Clinical statement: Chest pain and shortness of breath.; Technique: Multiple axial CT images were obtained from the thoracic inlet through the upper abdomen a; fter a bolus administration of nonionic intravenous contrast. Coronal and sagittal reconstructions we; re also obtained.; No comparison is available.; Findings: The central pulmonary arteries are unremarkable. The thoracic aorta is unremarkable. Thyroi; d gland is within normal limits. There is no thoracic lymphadenopathy. There are extensive emphysemat; ous changes in the upper lobes. Diffuse bilateral infiltrates are appreciated. There is a small right; -sided pleural effusion. Limited imaging of the upper abdomen is unremarkable. There are no suspiciou; s osseous lesions.; Impression: Diffuse bilateral infiltrates. Small right-sided pleural effusion. Severe emphysematous c; hanges in the upper lobes bilaterally.; ; Outcome: 09/27 23:46 Decision to Hospitalize by Provider. le 09/28 01:22 CT Study completed. ld5 02:14 Discharge Assessment: Patient awake, alert and oriented x 3. No cognitive and/or ld5 functional deficits noted. Patient verbalized understanding of disposition instructions. patient administered narcotics - no. The following High Risk Discharge criteria are identified: None. Admitted to ICU accompanied by nurse, accompanied by tech, family with patient, via stretcher, with oxygen, on monitor, with chart, Other with RT. Condition: stable. Property :Personal belongings accompany Pt. 02:27 Patient left the ED. ld5 Signatures: Dispatcher [employer] EDMS Bryan Giles, RN RN dwZoey Jenkins, Reg Reg Juan Newman, RN RN Luciana Snyder, DIETIST DIETIST Taylor Jenkins RN Doe Starkey, SALES REPRESENTATIVE SALES MANAGER SALES REPRESENTATIVE SALES MANAGER dd6 Yahaira NaiduRN RN rs3 Nakul Lopez bbLissa Hall,RN RN ld5 Luna Barboza, SALES REPRESENTATIVE SALES MANAGER SALES REPRESENTATIVE SALES MANAGER ct3 Sal Hernandez,RT RT rs5 Dawna Farris jp5 Corrections: (The following items were deleted from the chart) 09/27 18:12 18:09 Presenting complaint: son states chest tightness, SOB, cough worse today rs3 rs3 09/28 00:55 00:53 Pulse 86bpm; Monitor; Pulse Ox 97% 02 30% BiPAP; ld5 ld5 Chart Complete MTDD
--- NOTE | 2016-09-30 03:28 | EDDOCDS ---
Physician Documentation [facility] Name: Finn Perales Age: 56 yrs Sex: Female : 1960 Arrival Date: 09/27/2016 Time: 18:05 Bed 13 Private MD: NO PRIMARY PHYSICIAN, . Disposition: 09/27/16 23:46 Hospitalization ordered by Juan Lane for Inpatient Admission. Preliminary diagnosis are Other pneumonia, unspecified organism - bilateral, Emphysema - bilateral apical, Acute respiratory failure with hypercapnia. - Bed requested for M ICU. - Status is Inpatient Admission. ld5 - Condition is Stable. - Problem is new. - Symptoms are unchanged. Historical: - Allergies: no known allergies; - Home Meds: 1. none - PMHx: none; - PSHx: none; - Social history: Smoking status: Patient states former smoker of tobacco. No barriers to communication noted, The patient speaks fluent Mozambican. - Family history: Not pertinent. - : The pt / caregiver states he / she is not on anticoagulants. Home medication list is obtained from the patient. - Exposure Risk Screening:: None identified. Vital Signs: 09/27 18:06 BP 185 / 93; Pulse 127; Resp 24 S; Temp 97.7(O); Pulse Ox 68% on R/A; Weight 83.91 kg / dd6 184.99 lbs (R); Height 5 ft. 6 in. (167.64 cm) (R); 18:25 Pulse 122 MON; Pulse Ox 67% ; dy 18:30 Pulse 110 MON; Pulse Ox 99% ; dy 18:30 BP 173 / 91 (auto/); dy 19:30 BP 157 / 82 (auto/); ld5 19:30 Pulse 104 MON; Pulse Ox 98% ; ld5 20:30 BP 162 / 94 (auto/); ld5 20:30 Pulse 100 MON; Pulse Ox 97% on 4 lpm NC; ld5 20:45 BP 164 / 93 (auto/); ld5 20:45 Pulse 98 MON; Pulse Ox 96% on 4 lpm NC; ld5 21:07 BP 169 / 89 (auto/); ld5 21:09 Pulse 112 MON; Resp 22; Temp 97.3(O); Pulse Ox 94% on 4 lpm NC; ld5 21:30 BP 165 / 87 (auto/); ld5 21:30 Pulse 100 MON; Pulse Ox 94% on 4 lpm NC; ld5 22:00 BP 185 / 86 (auto/); ld5 22:00 Pulse 104 MON; Pulse Ox 97% on 4 lpm NC; ld5 22:30 BP 164 / 92 (auto/); ld5 22:30 Pulse 96 MON; Pulse Ox 96% on 4 lpm NC; ld5 23:00 BP 173 / 93 (auto/); ld5 23:00 Pulse 104 MON; Pulse Ox 93% on BiPAP; ld5 23:30 BP 162 / 80 (auto/); ld5 23:32 Pulse 90 MON; Temp 98; Pulse Ox 98% on BiPAP; ld5 09/28 00:37 BP 140 / 74 (auto/); ld5 00:53 Pulse 86 MON; Pulse Ox 97% on 40% BiPAP; ld5 01:00 BP 105 / 57 (auto/); ld5 01:00 Pulse 84 MON; Resp 22; Pulse Ox 97% ; ld5 01:30 BP 131 / 69 (auto/); ld5 01:30 Pulse 84 MON; Resp 22; Temp 98.1; Pulse Ox 97% on 40% BiPAP; ld5 02:00 BP 135 / 74 (auto/); ld5 02:00 Pulse 84 MON; Pulse Ox 99% on 40% BiPAP; ld5 09/27 18:06 Body Mass Index 29.86 (83.91 kg, 167.64 cm) dd6 MDM: 09/27 18:15 ECG WITH READING ER PHYS+CARDIAG ordered. EDMS 18:20 Tapper Shank/Pulse Ox/q 30 min VS ordered. br1 18:20 IV Saline Lock ordered. br1 18:20 Rhythm Strip to chart ordered. br1 18:20 Undress patient appropriately for examination ordered. br1 18:21 B-Type Natiuretic Peptide Ordered. EDMS 18:21 Basic Metabolic Profile Ordered. EDMS 18:21 CBC with Diff Ordered. EDMS 18:21 Cardiac Injury Profile Ordered. EDMS 18:21 Troponin Ordered. EDMS 18:22 Chest, 2 View (pa\E\lat) Ordered. EDMS 18:26 Oxygen at 4L/Min NC or Home dosage ordered. br1 19:03 RBC MORPH PROF NO CHARGE Ordered. EDMS 19:29 BED REQUEST+ADM ordered. EDMS 19:48 [facility] Payment Agreement was scanned into [employer] and attached to record. jp5 19:48 Financial registration complete. jp5 19:54 Basic Metabolic Profile Reviewed. le 19:54 CBC with Diff Reviewed. le 19:54 B-Type Natiuretic Peptide Reviewed. le 19:54 Cardiac Injury Profile Reviewed. le 19:54 Troponin Reviewed. le 19:54 RBC MORPH PROF NO CHARGE Reviewed. le 19:56 -Blood Culture (Adults Only), peripheral from different site, or from device/port/PICC le etc. if present ordered. 19:57 -Blood Culture Ordered. EDMS 19:57 D-Dimer Quant Ordered. EDMS 20:00 CT Chest With Contrast Ordered. EDMS 20:01 -Blood Culture (Adults Only), peripheral from different site, or from device/port/PICC ml3 etc. if present complete. 20:03 BLOOD CULTURES Ordered. EDMS 21:23 Call Respiratory ordered. le 21:23 -Arterial Blood Gas Ordered. EDMS 21:52 Call Respiratory complete. ml3 22:14 D-Dimer Quant Reviewed. le 22:15 Albuterol-Ipratropium 3 ml Inhalation once ordered. le 22:15 Call Respiratory ordered. le 22:15 Call Respiratory ordered. le 22:16 Call Respiratory complete. ml3 22:16 Call Respiratory complete. ml3 22:16 BIPAP INPATIENT+RESP-VENT ordered. EDMS 22:19 azithromycin 500 mg IVPB once over 1 hrs; dilute in 250mL of D5W or NS ordered. le 22:19 cefTRIAXone 2 grams IVPB once over 30 mins; dilute in 50mL of NS or D5W ordered. le 22:19 Lactic Acid (Drake tube on ice) Ordered. EDMS 23:31 Redraw ABG (put time in details section) ordered. le 23:32 Redraw ABG (put time in details section) complete. ml3 23:34 ARTERIAL BLOOD GAS Ordered. EDMS 23:34 COMPLETE COMPHRENSIVE METABOLI Ordered. EDMS 23:34 SPUTUM CULTURE AND GRAM STAIN Ordered. EDMS 23:35 Lactic Acid (Drake tube on ice) Reviewed. le 23:35 NPO DIET ordered. EDMS 23:36 CT Chest With Contrast Reviewed. le 23:49 RESPIRATORY PANEL Ordered. EDMS 09/28 00:44 CBC WITH DIFFERENTIAL Ordered. EDMS 00:49 C REACTIVE PROTEIN QUANTITATIV Ordered. EDMS 01:16 CALCIUM,RANDOM URINE Ordered. EDMS 01:16 ANTINUCLEAR ANTIBODIES Ordered. EDMS 01:16 ANTI-NEUTROPHIL CYTOPLASMIC AB Ordered. EDMS 01:20 Admission / Observation Status ordered. EDMS 10:00 T-Sheet-- Draft Copy was scanned into [employer] and attached to record. gb 10:01 ECG/EKG was scanned into [employer] and attached to record. gb Administered Medications: 09/27 22:54 Drug: Albuterol-Ipratropium 3 ml [ipratropium-albuterol 0.5 mg-3 mg(2.5 mg base)/3 mL bb3 nebulization soln (3 mL)] Route: Inhalation; 23:00 Drug: cefTRIAXone 2 grams [ceftriaxone 1 gram solution for injection] Route: IVPB; ld5 Infused Over: 30 mins; Site: left antecubital; 23:30 Follow up: IV Status: Completed infusion; IV Intake: 50ml ld5 23:45 Drug: azithromycin 500 mg [azithromycin 500 mg intravenous solution] Route: IVPB; ld5 Infused Over: 1 hrs; Site: left antecubital; 09/28 01:42 Follow up: IV Status: Completed infusion; IV Intake: 250ml ld5 Signatures: Dispatcher [employer] EDMS Zoey Oconnor, Reg Reg gb Umer Cancino, Email Specialist Unit ml3 Luciana Villalobos, J[employer]ITORIAL MAINTENANCE WORKER Jared Veliz MD MD br1 Yahaira Naidu RN RN rs3 Lissa ReneeRN RN ld5 Dawna Farris jp5 Luciana Hubbard, IVAN RN lmNakul [place] bb3 The chart was reviewed and I authenticate all verbal orders and agree with the evaluation and treatment provided.Corrections: (The following items were deleted from the chart) 00:54 00:46 ERYTHROCYTE SEDIMENTATION RATE ordered. EDMS EDMS 00:54 00:46 C REACTIVE PROTEIN QUANTITATIV ordered. EDUT EDMS Attachments: 09/27 19:48 [facility] Payment Agreement [email or web address] 09/28 10:00 T-Sheet-- Draft Copy gb 10:01 ECG/EKG gb Chart Complete MTDD
--- NOTE | 2016-09-30 03:28 | EDDOCDS ---
Physician Documentation [facility] Name: Finn Perales Age: 56 yrs Sex: Female : 1960 Arrival Date: 09/27/2016 Time: 18:05 Bed 13 Private MD: NO PRIMARY PHYSICIAN, . Disposition: 09/27/16 23:46 Hospitalization ordered by Juan Lane for Inpatient Admission. Preliminary diagnosis are Other pneumonia, unspecified organism - bilateral, Emphysema - bilateral apical, Acute respiratory failure with hypercapnia. - Bed requested for M ICU. - Status is Inpatient Admission. ld5 - Condition is Stable. - Problem is new. - Symptoms are unchanged. Historical: - Allergies: no known allergies; - Home Meds: 1. none - PMHx: none; - PSHx: none; - Social history: Smoking status: Patient states former smoker of tobacco. No barriers to communication noted, The patient speaks fluent Eritrean. - Family history: Not pertinent. - : The pt / caregiver states he / she is not on anticoagulants. Home medication list is obtained from the patient. - Exposure Risk Screening:: None identified. Vital Signs: 09/27 18:06 BP 185 / 93; Pulse 127; Resp 24 S; Temp 97.7(O); Pulse Ox 68% on R/A; Weight 83.91 kg / dd6 184.99 lbs (R); Height 5 ft. 6 in. (167.64 cm) (R); 18:25 Pulse 122 MON; Pulse Ox 67% ; dy 18:30 Pulse 110 MON; Pulse Ox 99% ; dy 18:30 BP 173 / 91 (auto/); dy 19:30 BP 157 / 82 (auto/); ld5 19:30 Pulse 104 MON; Pulse Ox 98% ; ld5 20:30 BP 162 / 94 (auto/); ld5 20:30 Pulse 100 MON; Pulse Ox 97% on 4 lpm NC; ld5 20:45 BP 164 / 93 (auto/); ld5 20:45 Pulse 98 MON; Pulse Ox 96% on 4 lpm NC; ld5 21:07 BP 169 / 89 (auto/); ld5 21:09 Pulse 112 MON; Resp 22; Temp 97.3(O); Pulse Ox 94% on 4 lpm NC; ld5 21:30 BP 165 / 87 (auto/); ld5 21:30 Pulse 100 MON; Pulse Ox 94% on 4 lpm NC; ld5 22:00 BP 185 / 86 (auto/); ld5 22:00 Pulse 104 MON; Pulse Ox 97% on 4 lpm NC; ld5 22:30 BP 164 / 92 (auto/); ld5 22:30 Pulse 96 MON; Pulse Ox 96% on 4 lpm NC; ld5 23:00 BP 173 / 93 (auto/); ld5 23:00 Pulse 104 MON; Pulse Ox 93% on BiPAP; ld5 23:30 BP 162 / 80 (auto/); ld5 23:32 Pulse 90 MON; Temp 98; Pulse Ox 98% on BiPAP; ld5 09/28 00:37 BP 140 / 74 (auto/); ld5 00:53 Pulse 86 MON; Pulse Ox 97% on 40% BiPAP; ld5 01:00 BP 105 / 57 (auto/); ld5 01:00 Pulse 84 MON; Resp 22; Pulse Ox 97% ; ld5 01:30 BP 131 / 69 (auto/); ld5 01:30 Pulse 84 MON; Resp 22; Temp 98.1; Pulse Ox 97% on 40% BiPAP; ld5 02:00 BP 135 / 74 (auto/); ld5 02:00 Pulse 84 MON; Pulse Ox 99% on 40% BiPAP; ld5 09/27 18:06 Body Mass Index 29.86 (83.91 kg, 167.64 cm) dd6 MDM: 09/27 18:15 ECG WITH READING ER PHYS+CARDIAG ordered. EDMS 18:20 Tonger/Pulse Ox/q 30 min VS ordered. br1 18:20 IV Saline Lock ordered. br1 18:20 Rhythm Strip to chart ordered. br1 18:20 Undress patient appropriately for examination ordered. br1 18:21 B-Type Natiuretic Peptide Ordered. EDMS 18:21 Basic Metabolic Profile Ordered. EDMS 18:21 CBC with Diff Ordered. EDMS 18:21 Cardiac Injury Profile Ordered. EDMS 18:21 Troponin Ordered. EDMS 18:22 Chest, 2 View (pa\E\lat) Ordered. EDMS 18:26 Oxygen at 4L/Min NC or Home dosage ordered. br1 19:03 RBC MORPH PROF NO CHARGE Ordered. EDMS 19:29 BED REQUEST+ADM ordered. EDMS 19:48 [facility] Payment Agreement was scanned into [employer] and attached to record. jp5 19:48 Financial registration complete. jp5 19:54 Basic Metabolic Profile Reviewed. le 19:54 CBC with Diff Reviewed. le 19:54 B-Type Natiuretic Peptide Reviewed. le 19:54 Cardiac Injury Profile Reviewed. le 19:54 Troponin Reviewed. le 19:54 RBC MORPH PROF NO CHARGE Reviewed. le 19:56 -Blood Culture (Adults Only), peripheral from different site, or from device/port/PICC le etc. if present ordered. 19:57 -Blood Culture Ordered. EDMS 19:57 D-Dimer Quant Ordered. EDMS 20:00 CT Chest With Contrast Ordered. EDMS 20:01 -Blood Culture (Adults Only), peripheral from different site, or from device/port/PICC ml3 etc. if present complete. 20:03 BLOOD CULTURES Ordered. EDMS 21:23 Call Respiratory ordered. le 21:23 -Arterial Blood Gas Ordered. EDMS 21:52 Call Respiratory complete. ml3 22:14 D-Dimer Quant Reviewed. le 22:15 Albuterol-Ipratropium 3 ml Inhalation once ordered. le 22:15 Call Respiratory ordered. le 22:15 Call Respiratory ordered. le 22:16 Call Respiratory complete. ml3 22:16 Call Respiratory complete. ml3 22:16 BIPAP INPATIENT+RESP-VENT ordered. EDMS 22:19 azithromycin 500 mg IVPB once over 1 hrs; dilute in 250mL of D5W or NS ordered. le 22:19 cefTRIAXone 2 grams IVPB once over 30 mins; dilute in 50mL of NS or D5W ordered. le 22:19 Lactic Acid (Drake tube on ice) Ordered. EDMS 23:31 Redraw ABG (put time in details section) ordered. le 23:32 Redraw ABG (put time in details section) complete. ml3 23:34 ARTERIAL BLOOD GAS Ordered. EDMS 23:34 COMPLETE COMPHRENSIVE METABOLI Ordered. EDMS 23:34 SPUTUM CULTURE AND GRAM STAIN Ordered. EDMS 23:35 Lactic Acid (Drake tube on ice) Reviewed. le 23:35 NPO DIET ordered. EDMS 23:36 CT Chest With Contrast Reviewed. le 23:49 RESPIRATORY PANEL Ordered. EDMS 09/28 00:44 CBC WITH DIFFERENTIAL Ordered. EDMS 00:49 C REACTIVE PROTEIN QUANTITATIV Ordered. EDMS 01:16 CALCIUM,RANDOM URINE Ordered. EDMS 01:16 ANTINUCLEAR ANTIBODIES Ordered. EDMS 01:16 ANTI-NEUTROPHIL CYTOPLASMIC AB Ordered. EDMS 01:20 Admission / Observation Status ordered. EDMS 10:00 T-Sheet-- Draft Copy was scanned into [employer] and attached to record. gb 10:01 ECG/EKG was scanned into [employer] and attached to record. gb Administered Medications: 09/27 22:54 Drug: Albuterol-Ipratropium 3 ml [ipratropium-albuterol 0.5 mg-3 mg(2.5 mg base)/3 mL bb3 nebulization soln (3 mL)] Route: Inhalation; 23:00 Drug: cefTRIAXone 2 grams [ceftriaxone 1 gram solution for injection] Route: IVPB; ld5 Infused Over: 30 mins; Site: left antecubital; 23:30 Follow up: IV Status: Completed infusion; IV Intake: 50ml ld5 23:45 Drug: azithromycin 500 mg [azithromycin 500 mg intravenous solution] Route: IVPB; ld5 Infused Over: 1 hrs; Site: left antecubital; 09/28 01:42 Follow up: IV Status: Completed infusion; IV Intake: 250ml ld5 Signatures: Dispatcher [employer] EDMS Zoey Oconnor, Reg Reg gb Umer Cancino, Personal Banking Assistant Unit ml3 Luciana Villalobos, [employer] ARCHITECT Jared Veliz MD MD br1 Yahaira Naidu RN RN rs3 Lissa ReneeRN RN ld5 Dawna Farris jp5 Luciana Hubbard, IVAN RN lmNakul aMdera bb3 The chart was reviewed and I authenticate all verbal orders and agree with the evaluation and treatment provided.Corrections: (The following items were deleted from the chart) 00:54 00:46 ERYTHROCYTE SEDIMENTATION RATE ordered. EDMS EDMS 00:54 00:46 C REACTIVE PROTEIN QUANTITATIV ordered. EDMD EDMS Attachments: 09/27 19:48 [facility] Payment Agreement [email or web address] 09/28 10:00 T-Sheet-- Draft Copy gb 10:01 ECG/EKG gb Chart Complete MTDD
[2016-09-30] MEDS: PIPERACILLIN/TAZOBACTAM SOD 3.375 GM in D5W MINI-BAG PLUS 50 ML IV SCH ×4 (03:59→22:01)
[2016-09-30] MEDS: methylPREDNISolone INJ 125 MG/2 ML VIAL (J2930) IV SCH ×3 (03:59→19:55)
[2016-09-30] MEDS: IPRATROPIUM 0.5MG/ALBUTEROL 2.5MG INH SOL UD 3ML (DUONEB)(J7620) NEB SCH ×5 (04:26→20:00)
[2016-09-30 04:53] LABS: EOS % 0.5 % (0.0-3.0); LARGE UNSTAINED CELL % 0.7 % (0.0-4.0); LYMPH # 0.2 K/mm3 (1.5-4.5); LYMPH % 3.5 % (24.0-44.0); MEAN CORPUSCULAR HEMOGLOBIN 24.3 pg (27.0-33.0); MEAN CORPUSCULAR HGB CONC 29.2 g/dl (32.0-36.5); MEAN CORPUSCULAR VOLUME 83.4 fl (80.0-96.0); MONO # 0.1 K/mm3 (0.0-0.8); MONO % 2.4 % (0.0-5.0); NEUTROPHILS # 4.3 K/mm3 (1.8-7.7); NEUTROPHILS % 92.8 % (36.0-66.0); PLATELET COUNT, AUTOMATED 201 k/mm3 (150-450); RED CELL DISTRIBUTION WIDTH 17.5 % (11.5-14.5); WHITE BLOOD COUNT 4.6 K/mm3 (4.0-10.0)
[2016-09-30 05:02] LABS: ANION GAP 6 MEQ/L (8-16); BLOOD UREA NITROGEN 16 MG/DL (7-18); CALCIUM LEVEL 8.8 MG/DL (8.5-10.1); CARBON DIOXIDE LEVEL 36 MEQ/L (21-32); CHLORIDE LEVEL 98 MEQ/L (98-107); CREATININE FOR GFR 0.89 MG/DL (0.55-1.02); GLOMERULAR FILTRATION RATE > 60.0 (>51); GLUCOSE, FASTING 130 MG/DL (70-105); POTASSIUM SERUM 4.1 MEQ/L (3.5-5.1); SODIUM LEVEL 140 MEQ/L (136-145)
[2016-09-30] MEDS: HEPARIN SOD (PORCINE) 5000 UNITS/ML VIAL SQ SCH ×3 (05:09→22:01)
[2016-09-30] MEDS: SLF 3 ML SYR IV SCH ×3 (05:18→22:00)
--- NOTE | 2016-09-30 07:31 | REP ---
Clinical: Respiratory failure. Comparison: 09/29/2016. Findings: Mediastinum and cardiac silhouette are stable. Lung borrego demonstrate chronic fibrosis and emphysematous changes predominate involving the upper lung zones. Superimposed bilateral interstitial and alveolar infiltrates (left greater than right) had progressively increased when compared with 09/27/2016 and 09/29/2016. Small left effusion cannot be excluded. No obvious pneumothorax. Skeletal structures are intact. Impression: 1. Increasing interstitial and alveolar infiltrates with possible small left layering effusion. 2. Underlying chronic diffuse fibrosis and emphysematous changes primarily involving the upper lung zones. Signed by Geo Villanueva MD 09/30/2016 07:22 A
--- NOTE | 2016-09-30 07:37 | IPN ---
DATE: 09/29/2016 Patient seen and examined. No acute events overnight. Patient denies any fever or chills, chest pain, pressure or discomfort. Continues to have dyspnea. Patient reported hungry. VITAL SIGNS: Temperature 96.3, pulse 88, respirations 24, blood pressure 121/71, pulse oximetry 95% on BiPAP, FiO2 25%. LABORATORY DATA: WBC 2.9, hemoglobin and hematocrit 9.7 over 32.7, platelets 194. Chemistry: Sodium 138, potassium 4.4, chloride 98, bicarbonate 36, BUN 16, creatinine 0.9. C-reactive protein 0.5. PHYSICAL EXAMINATION: GENERAL: Patient ill-appearing, on bilevel positive airway pressure (BiPAP) with mild dyspnea, able to speak in full sentences, follows commands, cooperative. HEENT: Normocephalic, atraumatic. NECK: Supple. Trachea midline. CARDIAC: Mild tachycardia. Regular, S1, S2. PULMONARY: Coarse breath sounds bilaterally, prolonged expiratory phase, diffuse rhonchi. ABDOMEN: Soft, nontender, nondistended. Positive bowel sounds. EXTREMITIES: Trace edema bilateral lower extremities. ASSESSMENT AND PLAN: This is a 56-year-old female patient with no known past medical history, smoker, who was brought in by family with progressively worsening shortness of breath. Onset of symptoms was unclear, question about one to two months ago. 1. Shortness of breath with acute hypoxic hypercarbic respiratory failure. Possible etiology includes infectious disease versus chemical pneumonitis versus sarcoidosis versus atypical pneumonia with pneumocystis pneumonia (PCP) versus connective tissue disorder or rheumatologic disorder. Followup rheumatologic and connective tissue disorder workup. Patient currently on bilevel positive airway pressure (BiPAP). Pulmonology consulted, Dr. Zhou, consulted. Arterial blood gases (ABGs) appreciated. Nebulizer treatments. Steroids. Respiratory panel negative. Blood cultures and sputum culture. Currently patient on Zosyn and azithromycin. Sputum induction for PCP. Sputum cytology. Methicillin-resistant Staphylococcus aureus (MRSA) screening. Sputum cultures. Patient refused HIV. Patient will followup pulmonology's recommendations. Will consider bronchoscopy if the patient does not improve. Will consider infectious disease consultation on Friday. 2. Leukopenia, reason unclear, possibly infectious. Follow up CD4 count as per pulmonary recommendation. Continue antibiotics as mentioned above. 3. Anemia. Followup hemoglobin and hematocrit, transfuse as needed. Currently appears to be at patient's baseline. 4. Deep vein thrombosis (DVT) prophylaxis. Heparin subcutaneous. DISPOSITION PLANNING: Pending clinical improement. Patient pretty critical. Pulmonology, Dr. Zhou, would like to keep the patient on clear liquid diet for possible intubation. Pending respiratory failure. Monitoring in intensive care unit.
[2016-09-30 08:38] LABS: ABG HCO3 35.2 MEQ/L (22.0-26.0); ABG PARTIAL PRESSURE O2 89.3 mmHg (75.0-100.0); ABG STANDARD HCO3 31.8 MEQ/L (22.0-26.0); ABG TOTAL CO2 37.2 MEQ/L (22.0-29.0); ABG pH (ARTERIAL) 7.361 UNITS (7.350-7.450)
[2016-09-30 08:42] LABS: ABG PARTIAL PRESSURE CO2 63.6 mmHg (35.0-45.0)
[2016-09-30] MEDS: ADVAIR DISKUS 500/50 INH PWD INH SCH ×2 (08:45→19:32)
[2016-09-30] MEDS: PANTOPRAZOLE 40MG TAB (PROTONIX) PO SCH (10:58)
--- NOTE | 2016-09-30 18:49 | IPN ---
DATE: 09/30/2016 Patient seen and examined. Continues to have dyspnea. On bilevel positive airway pressure (BiPAP) overnight. Denies any fevers or chills. Denies any chest pain, pressure or discomfort. VITAL SIGNS: Temperature 97.7, pulse 96, respirations 22, blood pressure 128/63, pulse oximetry 99% on 2 liters nasal cannula. LABORATORY DATA: WBC 4.6, hemoglobin and hematocrit 10/34, platelets 201. Chemistry: Sodium 140, potassium 4.1, chloride 98, bicarbonate 36, BUN 16, creatinine 0.89. C-reactive protein negative today. PHYSICAL EXAMINATION: GENERAL: Patient is ill appearing, on BiPAP overnight. Mild dyspnea but speaks in full sentences, follows commands, cooperative. HEENT: Normocephalic, atraumatic. NECK: Supple. Trachea midline. CARDIAC: Regular. S1, S2. No murmurs detected. PULMONARY: Coarse breath sounds bilateral, prolonged expiratory phase. Diffuse rhonchi. ABDOMEN: Soft, nontender, nondistended. Positive bowel sounds. EXTREMITIES: Trace edema bilateral lower extremities. ASSESSMENT AND PLAN: This is a 56-year-old female patient with no past medical history, does not see a primary care provider for many years, smoker, who was brought in by family with progressive worsening shortness of breath. Onset of symptoms was unclear but was getting worse for the past couple of months. Problems: 1. Shortness of breath with acute hypoxic hypercarbic respiratory failure. Possible etiology includes infectious, chemical pneumonitis, sarcoidosis, atypical pneumonia, PCP versus connective tissue disorder and rheumatologic disorder. Followup rheumatologic workup and connective tissue workup. The patient is on BiPAP. ABG is appreciated. Pulmonology, Dr. Zhou, consulted. Nebulizer treatment, steroids. Respiratory panel negative. Blood culture and sputum culture. The patient is currently on Zosyn. Sputum induction for cytology and PCP, MRSA screening. HIV workup. Infectious disease, Dr. Potts, has been consulted. The patient will consider bronchoscopy tomorrow. 2. Leukopenia. Reasons unclear. Followup HIV, infectious, rheumatologic workups. Infectious disease, Dr. Potts, consulted. Continue antibiotics mentioned above. 3. Anemia. Followup hemoglobin and hematocrit. Transfuse as needed. 4. Smoking cessation counseling provided. 5. Deep vein thrombosis (DVT) prophylaxis. Heparin subcu. DISPOSITION PLANNING: Pending clinical improvement, pulmonary recommendation, possible bronchoscopy and infectious disease recommendations.
[2016-10-01] VITALS (7 sets, daily range): BP systolic 117–147; BP diastolic 59–77; O2SAT 97
[2016-10-01] MEDS: IPRATROPIUM 0.5MG/ALBUTEROL 2.5MG INH SOL UD 3ML (DUONEB)(J7620) NEB SCH ×6 (00:16→20:00)
[2016-10-01] MEDS: methylPREDNISolone INJ 125 MG/2 ML VIAL (J2930) IV SCH ×3 (04:28→21:05)
[2016-10-01] MEDS: SLF 3 ML SYR IV SCH ×3 (04:28→21:06)
[2016-10-01] MEDS: HEPARIN SOD (PORCINE) 5000 UNITS/ML VIAL SQ SCH ×3 (05:38→21:06)
[2016-10-01 05:40] LABS: BASO % 0.1 % (0.0-1.0); LARGE UNSTAINED CELL % 0.7 % (0.0-4.0); LYMPH # 0.2 K/mm3 (1.5-4.5); LYMPH % 4.6 % (24.0-44.0); MEAN CORPUSCULAR HEMOGLOBIN 23.9 pg (27.0-33.0); MEAN CORPUSCULAR HGB CONC 28.8 g/dl (32.0-36.5); MEAN CORPUSCULAR VOLUME 83.1 fl (80.0-96.0); MONO # 0.2 K/mm3 (0.0-0.8); MONO % 3.9 % (0.0-5.0); NEUTROPHILS # 3.4 K/mm3 (1.8-7.7); NEUTROPHILS % 90.6 % (36.0-66.0); PLATELET COUNT, AUTOMATED 155 k/mm3 (150-450); RED CELL DISTRIBUTION WIDTH 17.1 % (11.5-14.5); WHITE BLOOD COUNT 3.8 K/mm3 (4.0-10.0)
[2016-10-01 05:52] LABS: ANION GAP 3 MEQ/L (8-16); BLOOD UREA NITROGEN 19 MG/DL (7-18); CALCIUM LEVEL 8.5 MG/DL (8.5-10.1); CARBON DIOXIDE LEVEL 38 MEQ/L (21-32); CHLORIDE LEVEL 101 MEQ/L (98-107); CREATININE FOR GFR 0.73 MG/DL (0.55-1.02); GLOMERULAR FILTRATION RATE > 60.0 (>51); GLUCOSE, FASTING 143 MG/DL (70-105); POTASSIUM SERUM 4.3 MEQ/L (3.5-5.1); SODIUM LEVEL 142 MEQ/L (136-145)
[2016-10-01 06:31] LABS: ABG BASE EXCESS 7.4 (-2.0-2.0); ABG HCO3 34.8 MEQ/L (22.0-26.0); ABG PARTIAL PRESSURE O2 77.9 mmHg (75.0-100.0); ABG STANDARD HCO3 31.1 MEQ/L (22.0-26.0); ABG TOTAL CO2 36.8 MEQ/L (22.0-29.0); ABG pH (ARTERIAL) 7.344 UNITS (7.350-7.450)
[2016-10-01 06:33] LABS: ABG PARTIAL PRESSURE CO2 65.3 mmHg (35.0-45.0)
--- NOTE | 2016-10-01 07:21 | CR ---
DATE OF CONSULTATION: 09/30/2016 I was asked to consult by Dr. Schwarz for evaluation of abnormal chest CT and positive sputum culture with Staph aureus in a patient with respiratory failure. HISTORY OF PRESENT ILLNESS: Mrs. Perales is a 56-year-old black female with no significant past medical history who does not take regular medications, but has an inhaler that she uses as needed. She lives with her son who is in the and has moved with him during his different stationing. They just moved back to [place], [place], and have been in the area for the past 6 months. The patient stated she had been working at [employer] and she had been doing fairly well, but with some increasing shortness of breath over the past year, more so in the past two weeks she has had increasing shortness of breath and a cough that she stated started about a week ago with yellowish phlegm. The patient also states that she has had some chest pain in the upper part of the sternum, but denied any fever, chills, orthopnea, paroxysmal nocturnal dyspnea, night sweats or weight loss. The patient states that she is feeling all right and is feeling much better since admission to the hospital. The patient has a history of reflux disease for which she does not take any medications. She had no nausea, vomiting or diarrhea. She was found to have acute respiratory failure in the emergency room and was placed on noninvasive mechanical ventilation. She was started on ceftriaxone and Zithromax. A CT chest showed severe bullous disease with interstitial infiltrates. PAST MEDICAL HISTORY: 1. History of tobacco abuse that she quit about 3 years ago, but never smoked significantly. 2. She had been given an inhaler when she was in [place] for some respiratory issues, but she has not used on a regular basis. FAMILY HISTORY: Father has hypertension. Mother is alive with no significant history. REVIEW OF SYSTEMS: The patient denies any joint pains, muscle aches, nausea, vomiting, diarrhea, or abdominal pain. No history of rheumatoid arthritis. No hematuria. No flank pain. No upper or lower extremity weakness. She only has some shortness of breath and a cough which is more so recently. MEDICATIONS: - Protonix 40 mg by mouth daily - Zithromax 500 mg IV every 24 hours - Zosyn 3.375 grams IV every 6 hours - Advair 500/50 one puff twice a day - DuoNeb 3 mL every 4 hours as needed - methylprednisolone 80 mg IV every 8 hours as needed ALLERGIES: No known drug allergies. LABORATORY DATA: White count on admission was 3, and currently is 4.6 after she has been started on steroid. Hemoglobin 10. Hematocrit 34.1. Platelets 201. 92% neutrophils, 3% lymphocytes, 2% monocytes. Sodium 140, potassium 4.1, chloride 98, bicarb 36, BUN 16, creatinine 0.9, glucose 130, calcium 8.8, AST 14 , ALT 15, alkaline phosphatase 74. CRP was 0.51 on 09/29/2016 and less than 0.3 currently. Albumin is 2.7. Urine had 33 white cells, 2 red cells. Immunology: Rheumatoid factor was 202. ASCENCION, ANCA, and CD-4 count are pending. Blood cultures, two sets on 09/27/2016, are no growth after 72 hours. Respiratory panel was negative. Methicillin-resistant Staphylococcus aureus (MRSA) screen was negative. Sputum culture had few Staph aureus, many white cells, few epithelial cells. Susceptibilities are pending. IMAGING STUDIES: Chest x-ray on admission showed extensive diffuse interstitial infiltrates with severe ongoing pattern of interstitial fibrosis, prominent right hilum. Chest CT done the same day shows diffuse emphysematous changes in the upper lobes, bilateral infiltrates mostly interstitial and small right-sided pleural effusion. The CT of chest was done with contrast. Chest x-ray done today showed increasing interstitial and alveolar infiltrate. PHYSICAL EXAMINATION: Healthy-looking black female in no acute distress. Afebrile throughout the admission. Temperature is 96.8, pulse 105, respirations 20, blood pressure 124/66 and O2 sat 99% on 3 liters nasal cannula. Heart: Normal S1, S1. Tachycardia. Soft ejection murmur of 2/6. Lungs: Crackles at both bases with expiratory wheezes. No accessory muscle use. Abdomen is soft, nontender. No hepatosplenomegaly. Extremities: No clubbing or cyanosis. Trace pedal edema. Neurologic: Exam alert, oriented times three with no focal deficit. Neck is supple. No jugular venous distention (JVD). No bruits. No adenopathy. Oropharynx very poor dentition, but no thrush, no lesions. Pupils equal and reactive. IMPRESSION: This is a pleasant, 56-year-old black female with no significant past medical history who was admitted with acute on chronic respiratory failure with hypercapnia and with a chest CT that shows severe cystic changes mostly in the apices of the lung with interstitial infiltrate. The patient has also a positive rheumatoid factor. She has no fever. She has a mild leukopenia and has improved with steroids. Differential diagnosis includes connective tissue disease including rheumatoid lung, although she has no joint pain, hypersensitivity pneumonitis, and pulmonary fibrosis. The patient has also leukopenia and could be immunocompromised. HIV is in the differential, although I doubt as the patient has responded to steroids and she does not seem to have any risk factors. She has been treated with broad-spectrum antibiotics including Zosyn and Zithromax, but I do not see any need for Zosyn. It could be atypical pneumonia with underlying severe emphysema which has caused this admission and atypical pathogens would be more likely with this interstitial pattern than typical bacterial pneumonia. PLAN: Agree with antibiotics, although I will de-escalate therapy to just using Zithromax 500 mg by mouth daily to cover for atypical pathogens Agree with continued steroids. Patient has agreed on HIV testing as long as we do not have to draw blood anymore. We did an add on testing. She also was born between 1947 and 1966 and therefore will have a hepatitis C testing. CD-4 count has been sent. If the patient deteriorates, then lung biopsy would be of benefit. Dr. Crockett has reviewed the case with us as well. [facility]
--- NOTE | 2016-10-01 07:53 | REP ---
Clinical: Respiratory failure. Comparison: 09/30/2016. Findings: Mediastinum and cardiac silhouette stable. Lung borrego demonstrate chronic fibrosis and emphysematous changes with superimposed multifocal infiltrates and suspected new layering pleural effusions. No pneumothorax. Skeletal structures stable. Impression: Multifocal infiltrates similar to prior examination. New layering pleural effusions cannot be excluded. Signed by Geo Villanueva MD 10/01/2016 07:40 A
[2016-10-01] MEDS: ADVAIR DISKUS 500/50 INH PWD INH SCH ×2 (07:55→20:34)
[2016-10-01] MEDS: PANTOPRAZOLE 40MG TAB (PROTONIX) PO SCH (08:59)
[2016-10-01] MEDS ORDERED: AZITHROMYCIN 250 MG TAB PO SCH (09:00)
[2016-10-01 10:08] LABS: CONTROL LINE INT CTR LINE PRESENT; HIV SCRN NEGATIVE (NEGATIVE); HIV SCRN1 NEGATIVE (NEGATIVE)
--- NOTE | 2016-10-01 16:25 | IPNPDOC ---
Assessment/Plan Date Seen The patient was seen on 10/01/16. Plan / VTE VTE Prophylaxis Ordered?: Yes Plan Plan Text Shortness of Breath with Acute Hypoxic and Hypercarbic respiratory failure. Possible etiology includes infectious, chemical pneumonitis, sarcoidosis, atypical pneumonia. Patient did have a positive rheumatoid factor lab value, and there is a possibility that the patient's CAT scan findings may be attributable to an underlying connective tissue disorder. Rheumatologic workup and connective tissue workup pending. Blood culture unrevealing thus far, sputum culture notable for MRSA. Antibiotics narrowed down to azithromycin to cover for atypical pneumonia as per infectious diseases HIV workup negative, hepatitis C workup pending I did discuss the possibility of a bronchoscopy or open lung biopsy with Dr. Zhou of pulmonary-this can be followed up as an outpatient when the patient's respiratory status is hopefully more optimized. We will continue to downward taper the patient's methylprednisolone as tolerated Leukopenia. ? Etiology HIV workup negative, hepatitis C workup pending We'll continue to monitor the patient's CBC Anemia. Followup hemoglobin and hematocrit. Transfuse as needed. Smoking cessation counseling provided. Deep vein thrombosis (DVT) prophylaxis. Heparin subcu. DISPOSITION PLANNING: Patient's respiratory status does appear to be improving. She has been doing well off BiPAP therapy, and this has been discontinued as per pulmonary. We will continue to downward taper her steroid requirements, and have her work with physical therapy. We will follow-up with the patient's pending labs as noted above. The patient will need to follow-up with a smasher as an outpatient for further workup. Subjective Review of Systems CC/HPI The patient is a 56-year-old female admitted with a reason for visit of Respiratory Failure. General: Denies: Chills, Night Sweats Constitutional: Denies: Chills, Fever Eyes: Denies: Pain, Vision change ENT: Denies: Ear Pain, Head Aches Skin: Denies: Lesions, Rash Pulmonary: Reports: Cough, Dyspnea Cardiovascular: Denies: Chest Pain, Palpitations Gastrointestinal: Denies: Abdominal Pain, Nausea, Vomiting Hematologic: Denies: Bleeding Excessively, Bruising Objective Physical Examination General Exam: Positive: Alert, Cooperative, No Acute Distress ENT Exam: Positive: Atraumatic, Mucous membr. moist/pink Chest Exam: Positive: Diminished, Other (diffuse fine crackles noted anteriorly and posteriorly and most notably in the upper apices bilaterally) Heart Exam: Positive: Normal S1, Normal S2, Rate Normal Abdomen Exam: Positive: Soft, Negative: Tenderness Extremity Exam: Negative: Edema, Tenderness Vital Signs/I&O Vital Signs Date Time Temp Pulse Resp B/P Pulse Ox O2 Delivery O2 Flow Rate FiO2 10/01/16 16:00 98.6 99 18 139/73 98 Nasal Cannula 2.0 09/30/16 08:00 25 I&O- Last 24 Hours up to 6 AM 10/01/16 06:00 Intake Total 2130 ml Output Total 1250 ml Balance 880 ml Laboratory Data Labs 24H Laboratory Tests 2 09/30/16 17:06: HIV (1&2) Antibody NEGATIVE, HIV P24 Antigen NEGATIVE 10/01/16 05:03: Anion Gap 3L, White Blood Count 3.8L, Red Blood Count 4.13, Hemoglobin 9.9L, Hematocrit 34.3L, Mean Corpuscular Volume 83.1, Mean Corpuscular Hemoglobin 23.9L, Mean Corpuscular Hemoglobin Concent 28.8L, Red Cell Distribution Width 17.1H, Platelet Count 155, Neutrophils (%) (Auto) 90.6H, Lymphocytes (%) (Auto) 4.6L, Monocytes (%) (Auto) 3.9, Eosinophils (%) (Auto) 0.0, Basophils (%) (Auto ) 0.1, Neutrophils # (Auto) 3.4, Lymphocytes # (Auto) 0.2L, Monocytes # (Auto) 0.2, Eosinophils # (Auto) 0.0, Basophils # (Auto) 0.0, C-Reactive Protein, Quantitative < 0.30, Blood Urea Nitrogen 19H, Creatinine 0.73, Sodium Level 142 , Potassium Level 4.3, Chloride Level 101, Carbon Dioxide Level 38H, Calcium Level 8.5, Glomerular Filtration Rate > 60.0, Large Unclassified Cells # 0.0, Large Unclassified Cells % 0.7 10/01/16 06:17: Arterial Blood pH 7.344L, Arterial Blood Partial Pressure CO2 65.3*H, Arterial Blood Partial Pressure O2 77.9, Arterial Blood Total CO2 36.8H, Arterial Blood HCO3 34.8H, Arterial Blood Base Excess 7.4H, Arterial Blood Oxygen Saturation 94.9L, Blood Gas Bicarbonate Standard 31.1H 10/01/16 11:24: CBC/BMP Laboratory Tests 10/01/16 05:03 Calcium Level 8.5, Red Blood Count 4.13, Mean Corpuscular Volume 83.1, Mean Corpuscular Hemoglobin 23.9 L, Mean Corpuscular Hemoglobin Concent 28.8 L, Red Cell Distribution Width 17.1 H, Neutrophils (%) (Auto) 90.6 H, Lymphocytes (%) ( Auto) 4.6 L, Monocytes (%) (Auto) 3.9, Eosinophils (%) (Auto) 0.0, Basophils (% ) (Auto) 0.1, Neutrophils # (Auto) 3.4, Lymphocytes # (Auto) 0.2 L, Monocytes # (Auto) 0.2, Eosinophils # (Auto) 0.0, Basophils # (Auto) 0.0 Microbiology Microbiology 09/27/16 Blood Culture - Preliminary, Resulted No Growth after 72 hours. All specime... 09/27/16 Blood Culture - Preliminary, Resulted No Growth after 72 hours. All specime... 09/28/16 Gram Stain - Final, Complete 09/28/16 Sputum Culture - Final, Complete Staphylococcus Aureus 09/28/16 MRSA Screen - Final, Complete 09/28/16 Respiratory Virus Panel (PCR) ([facility]) - Final, Complete LEAH RYDER MD Oct 01, 2016 16:25
--- NOTE | 2016-10-01 22:29 | IPN ---
DATE: 10/01/2016 INFECTIOUS DISEASE PROGRESS NOTE Finn seems to be doing very well. She denied any fever or chills. She is very excited that her breathing has markedly improved since she has been started on steroids. She states her appetite is too good. She has been transferred from the intensive care unit (ICU). LABORATORY DATA: White count is 3.8, hemoglobin 9.9, hematocrit 34.3, platelets 155, 90% neutrophils, 4% lymphocytes. Sodium 142, potassium 4.3, chloride 101, bicarbonate 38, BUN 19, creatinine 0.73, glucose 143, calcium 8.5, CRP less than 0.3. ABG: pH is 7.34, pCO2 65, pO2 77, O2 saturation 95%. Sputum culture had methicillin-sensitive Staphylococcus aureus (MSSA), very few, many white cells were seen. MSSA was resistant to erythromycin and clindamycin. Chest x-ray done today shows multifocal infiltrates similar to prior exam. IMPRESSION: Respiratory failure, hypercarbic respiratory failure with acute decompensation. Could have been related to pulmonary infection. The patient has markedly improved. Sputum culture only had a few MSSA that could have been the trigger, although also a respiratory infection versus atypical pneumonia. PLAN: Will discontinue azithromycin as the patient has Staphylococcus aureus that is resistant to azithromycin and will switch her to doxycycline. It is susceptible and that will cover for atypical pathogens as well. Once the patient is stable, she could be discharged home on doxycycline 100 mg by mouth twice a day for 10 days. Urine Legionella antigen was ordered and is still pending.
[2016-10-02] MEDS: methylPREDNISolone INJ 125 MG/2 ML VIAL (J2930) IV SCH (05:04)
[2016-10-02] MEDS: SLF 3 ML SYR IV SCH ×3 (05:05→21:02)
[2016-10-02] MEDS: HEPARIN SOD (PORCINE) 5000 UNITS/ML VIAL SQ SCH ×3 (05:05→21:02)
[2016-10-02 06:00] VITALS: BP 143/90
[2016-10-02] MEDS: IPRATROPIUM 0.5MG/ALBUTEROL 2.5MG INH SOL UD 3ML (DUONEB)(J7620) NEB SCH ×4 (07:24→18:59)
[2016-10-02] MEDS: ADVAIR DISKUS 500/50 INH PWD INH SCH ×2 (07:24→21:15)
[2016-10-02 07:42] LABS: EOS % 0.3 % (0.0-3.0); LARGE UNSTAINED CELL % 0.6 % (0.0-4.0); LYMPH # 0.1 K/mm3 (1.5-4.5); LYMPH % 4.4 % (24.0-44.0); MEAN CORPUSCULAR HEMOGLOBIN 23.8 pg (27.0-33.0); MEAN CORPUSCULAR HGB CONC 28.8 g/dl (32.0-36.5); MEAN CORPUSCULAR VOLUME 82.7 fl (80.0-96.0); MONO # 0.1 K/mm3 (0.0-0.8); MONO % 2.3 % (0.0-5.0); NEUTROPHILS # 2.9 K/mm3 (1.8-7.7); NEUTROPHILS % 92.3 % (36.0-66.0); PLATELET COUNT, AUTOMATED 158 k/mm3 (150-450); WHITE BLOOD COUNT 3.1 K/mm3 (4.0-10.0)
[2016-10-02 07:54] LABS: ANION GAP 4 MEQ/L (8-16); BLOOD UREA NITROGEN 19 MG/DL (7-18); CALCIUM LEVEL 9.1 MG/DL (8.5-10.1); CARBON DIOXIDE LEVEL 37 MEQ/L (21-32); CHLORIDE LEVEL 101 MEQ/L (98-107); GLOMERULAR FILTRATION RATE > 60.0 (>51); GLUCOSE, FASTING 128 MG/DL (70-105); POTASSIUM SERUM 4.5 MEQ/L (3.5-5.1); SODIUM LEVEL 142 MEQ/L (136-145)
--- NOTE | 2016-10-02 09:46 | REP ---
Portable chest x-ray: Single view. History: Respiratory failure. Comparison chest x-ray is from October 01, 2016 and September 30, 2016. Findings: There is diffuse interstitial lung disease. Interstitial infiltrates are seen right upper lobe peripherally more than left. There is some pleural thickening visible on the right. These changes are felt to be status quo from September 30, 2016. No new infiltrate is seen. Heart size is borderline unchanged. There is blunting of the right lateral pleural angle and question some subpulmonic pleural fluid on the left. Impression: Extensive interstitial lung disease. Small bilateral effusions suspected. No new infiltrate seen. Signed by Rodger Quarles MD 10/02/2016 06:32 P
[2016-10-02] MEDS: DOXYCYCLINE HYCLATE 100 MG TAB PO SCH ×2 (09:55→21:02)
[2016-10-02] MEDS: PANTOPRAZOLE 40MG TAB (PROTONIX) PO SCH (09:55)
--- NOTE | 2016-10-02 12:36 | IPNPDOC ---
Assessment/Plan Date Seen The patient was seen on 10/02/16. Plan / VTE VTE Prophylaxis Ordered?: Yes Plan Plan Text Shortness of Breath with Acute Hypoxic and Hypercarbic respiratory failure. Possible etiology includes infectious, chemical pneumonitis, sarcoidosis, atypical pneumonia. Patient did have a positive rheumatoid factor lab value, and there is a possibility that the patient's CAT scan findings may be attributable to an underlying connective tissue disorder. Rheumatologic workup and connective tissue workup negative for ANCA, ASCENCION Blood culture unrevealing thus far, sputum culture notable for MRSA. Antibiotics narrowed down to doxycycline for a total of 10 days to cover for atypical pneumonia as per infectious diseases HIV workup negative, hepatitis C workup negative I did discuss the possibility of a bronchoscopy or open lung biopsy with Dr. Zhou of pulmonary-this can be followed up as an outpatient when the patient's respiratory status is hopefully more optimized. We will continue to downward taper the patient's methylprednisolone as tolerated Leukopenia. ? Etiology HIV workup negative, hepatitis C workup negative We'll continue to monitor the patient's CBC Anemia. Followup hemoglobin and hematocrit. Smoking cessation counseling provided. Deep vein thrombosis (DVT) prophylaxis. Heparin subcu. DISPOSITION PLANNING: Patient's respiratory status does appear to be improving. We will continue to downward taper her steroid requirements, and have her work with physical therapy. Subjective Review of Systems CC/HPI The patient is a 56-year-old female admitted with a reason for visit of Respiratory Failure. General: Denies: Chills, Night Sweats Constitutional: Denies: Chills, Fever Eyes: Denies: Pain, Vision change ENT: Denies: Ear Pain, Head Aches Skin: Denies: Lesions, Rash Pulmonary: Reports: Cough, Dyspnea Cardiovascular: Denies: Chest Pain, Palpitations Gastrointestinal: Denies: Nausea, Vomiting Genitourinary: Denies: Dysuria, Frequency Hematologic: Denies: Bleeding Excessively, Bruising Objective Physical Examination General Exam: Positive: Alert, Cooperative, No Acute Distress ENT Exam: Positive: Atraumatic, Mucous membr. moist/pink Chest Exam: Positive: Diminished, Other (diffuse fine crackles noted anteriorly and posteriorly and most notably in the upper apices bilaterally) Heart Exam: Positive: Normal S1, Normal S2, Rate Normal Abdomen Exam: Positive: Soft, Negative: Tenderness Extremity Exam: Negative: Edema, Tenderness Vital Signs/I&O Vital Signs Date Time Temp Pulse Resp B/P Pulse Ox O2 Delivery O2 Flow Rate FiO2 10/02/16 06:00 96.9 82 22 143/90 95 Nasal Cannula 2.0 09/30/16 08:00 25 I&O- Last 24 Hours up to 6 AM 10/02/16 05:59 Intake Total 900 ml Output Total 700 ml Balance 200 ml Laboratory Data Labs 24H Laboratory Tests 2 10/02/16 07:11: Anion Gap 4L, White Blood Count 3.1L, Red Blood Count 4.33, Hemoglobin 10.3L, Hematocrit 35.8L, Mean Corpuscular Volume 82.7, Mean Corpuscular Hemoglobin 23.8L, Mean Corpuscular Hemoglobin Concent 28.8L, Red Cell Distribution Width 17.0H, Platelet Count 158, Neutrophils (%) (Auto) 92.3H, Lymphocytes (%) (Auto) 4.4L, Monocytes (%) (Auto) 2.3, Eosinophils (%) (Auto) 0.3, Basophils (%) (Auto ) 0.0, Neutrophils # (Auto) 2.9, Lymphocytes # (Auto) 0.1L, Monocytes # (Auto) 0.1, Eosinophils # (Auto) 0.0, Basophils # (Auto) 0.0, C-Reactive Protein, Quantitative < 0.30, Blood Urea Nitrogen 19H, Creatinine 0.60, Sodium Level 142 , Potassium Level 4.5, Chloride Level 101, Carbon Dioxide Level 37H, Calcium Level 9.1, Glomerular Filtration Rate > 60.0, Large Unclassified Cells # 0.0, Large Unclassified Cells % 0.6 CBC/BMP Laboratory Tests 10/02/16 07:11 Calcium Level 9.1, Red Blood Count 4.33, Mean Corpuscular Volume 82.7, Mean Corpuscular Hemoglobin 23.8 L, Mean Corpuscular Hemoglobin Concent 28.8 L, Red Cell Distribution Width 17.0 H, Neutrophils (%) (Auto) 92.3 H, Lymphocytes (%) ( Auto) 4.4 L, Monocytes (%) (Auto) 2.3, Eosinophils (%) (Auto) 0.3, Basophils (% ) (Auto) 0.0, Neutrophils # (Auto) 2.9, Lymphocytes # (Auto) 0.1 L, Monocytes # (Auto) 0.1, Eosinophils # (Auto) 0.0, Basophils # (Auto) 0.0 Microbiology Microbiology 09/27/16 Blood Culture - Preliminary, Resulted No Growth after 72 hours. All specime... 09/27/16 Blood Culture - Preliminary, Resulted No Growth after 72 hours. All specime... 10/01/16 MRSA Screen, Received Pending 09/28/16 Gram Stain - Final, Complete 09/28/16 Sputum Culture - Final, Complete Staphylococcus Aureus 09/28/16 MRSA Screen - Final, Complete 09/28/16 Respiratory Virus Panel (PCR) ([facility]) - Final, Complete LEAH RYDER MD Oct 02, 2016 12:36
[2016-10-02] MEDS ORDERED: methylPREDNISolone INJ 125 MG/2 ML VIAL (J2930) IV SCH (13:00)
[2016-10-02 14:00] VITALS: BP 145/97
[2016-10-02 20:00] VITALS: BP 146/64
[2016-10-03] MEDS: SLF 3 ML SYR IV SCH ×3 (05:37→20:29)
[2016-10-03] MEDS: HEPARIN SOD (PORCINE) 5000 UNITS/ML VIAL SQ SCH ×3 (05:37→20:29)
[2016-10-03 06:00] VITALS: BP 160/92
[2016-10-03 07:12] LABS: BASO % 0.1 % (0.0-1.0); EOS % 0.3 % (0.0-3.0); LARGE UNSTAINED CELL # 0.1 K/mm3 (0.0-0.4); LYMPH # 0.3 K/mm3 (1.5-4.5); LYMPH % 13.1 % (24.0-44.0); MEAN CORPUSCULAR HEMOGLOBIN 23.8 pg (27.0-33.0); MEAN CORPUSCULAR HGB CONC 29.1 g/dl (32.0-36.5); MEAN CORPUSCULAR VOLUME 81.8 fl (80.0-96.0); MONO # 0.2 K/mm3 (0.0-0.8); MONO % 6.3 % (0.0-5.0); NEUTROPHILS % 78.1 % (36.0-66.0); PLATELET COUNT, AUTOMATED 128 k/mm3 (150-450); WHITE BLOOD COUNT 2.6 K/mm3 (4.0-10.0)
[2016-10-03] MEDS: ADVAIR DISKUS 500/50 INH PWD INH SCH ×2 (07:27→19:55)
[2016-10-03] MEDS: IPRATROPIUM 0.5MG/ALBUTEROL 2.5MG INH SOL UD 3ML (DUONEB)(J7620) NEB SCH ×4 (07:27→19:55)
[2016-10-03 07:42] LABS: ANION GAP 4 MEQ/L (8-16); BLOOD UREA NITROGEN 27 MG/DL (7-18); CALCIUM LEVEL 8.4 MG/DL (8.5-10.1); CARBON DIOXIDE LEVEL 38 MEQ/L (21-32); CHLORIDE LEVEL 102 MEQ/L (98-107); CREATININE FOR GFR 0.77 MG/DL (0.55-1.02); GLOMERULAR FILTRATION RATE > 60.0 (>51); GLUCOSE, FASTING 83 MG/DL (70-105); POTASSIUM SERUM 3.9 MEQ/L (3.5-5.1); SODIUM LEVEL 144 MEQ/L (136-145)
[2016-10-03] MEDS: predniSONE 20 MG TAB PO SCH (09:14)
[2016-10-03] MEDS: PANTOPRAZOLE 40MG TAB (PROTONIX) PO SCH (09:15)
[2016-10-03] MEDS: DOXYCYCLINE HYCLATE 100 MG TAB PO SCH ×2 (09:15→20:29)
--- NOTE | 2016-10-03 10:47 | REP ---
PORTABLE CHEST X-RAY: Sitting AP view. HISTORY: Respiratory failure. Comparison study October 02, 2016. FINDINGS: There is diffuse interstitial lung disease consistent with fibrosis. This is unchanged from yesterday's radiograph. This is most pronounced in the upper lobe distribution. Mildly prominent heart is again seen. No new infiltrate is noted. Signed by Rodger Quarles MD 10/03/2016 02:54 P
[2016-10-03 14:00] VITALS: BP 139/73
[2016-10-03 16:00] VITALS: BP 148/77
--- NOTE | 2016-10-03 18:18 | IPN ---
DATE: 10/03/2016 Patient seen and examined. No acute events overnight. Patient comfortable. Mild dyspnea. Denies any chest pain, pressure or discomfort. Denies any fevers or chills. VITAL SIGNS: Temperature 96.8, pulse 92, respirations 18, blood pressure 148/77, pulse oximetry 92% on 2 liters, on room air 78% and on 1 liter is 88%. LABORATORY DATA: WBC 2.6, hemoglobin and hematocrit 10.1 over 34.1, platelets 128. Chemistry: Sodium 144, potassium 3.9, chloride 102, bicarbonate 38, BUN 27, creatinine 0.77. C-reactive protein negative. PHYSICAL EXAMINATION: GENERAL: Patient alert and oriented times three, in no acute distress. HEENT: Normocephalic, atraumatic. Moist mucous membranes. RESPIRATORY: Diminished breath sounds, diffuse fine crackles, most notably bilateral apices. CARDIAC: Regular rate and rhythm. Normal S1, S2. ABDOMEN: Soft, nontender, nondistended. EXTREMITIES: No clubbing, cyanosis or edema. ASSESSMENT AND PLAN: This is a 56-year-old female patient with no significant past medical history and until now did not see a primary doctor for many years, active smoker who was brought in by family with progressive worsening shortness of breath. Problems: 1. Acute hypoxic hypercarbic respiratory failure. Etiology including infectious, chemical pneumonitis, sarcoidosis, atypical pneumonia and connective tissue disease. Positive rheumatoid factor. CT scan appreciated. Possible connective tissue disorder. Rheumatologic workup and connective tissue workup has been negative for ANCA and ASCENCION. Blood culture unrevealing so far. Sputum culture: Notable for methicillin-resistant Staphylococcus aureus (MRSA). Antibiotic narrowed to doxycycline, appreciate Dr. Potts's assistance from infectious disease, for a total of 10 days to cover atypical pneumonia, as per infectious disease. HIV workup negative. Hepatitis C workup negative. Possibility of bronchoscopy or open lung biopsy has been discussed with Dr. Zhou, Pulmonology, who has been consulted and recommended outpatient followup. In the meantime, taper steroids, as tolerated. Continue oxygen supplementation. 2. Leukopenia. Unclear etiology. HIV workup negative and hepatitis C workup negative. Continue to monitor CBC. 3. Anemia. Followup hemoglobin and hematocrit, transfuse as needed. 4. Smoking counseling provided. 5. Deep vein thrombosis (DVT) prophylaxis. Heparin subcutaneously. DISPOSITION: The patient remains hypoxic. Will need outpatient oxygen arrangements. Patient and family services (PFS) consulted, given the patient does not have insurance, it will be difficult. Continue to taper steroids. Physical therapy.
[2016-10-03 22:00] VITALS: BP 128/64
[2016-10-04 06:00] VITALS: BP 148/68
[2016-10-04] MEDS: SLF 3 ML SYR IV SCH ×2 (06:27→14:00)
[2016-10-04] MEDS: HEPARIN SOD (PORCINE) 5000 UNITS/ML VIAL SQ SCH ×2 (06:27→14:00)
[2016-10-04 06:58] LABS: ANION GAP 5 MEQ/L (8-16); BLOOD UREA NITROGEN 18 MG/DL (7-18); CALCIUM LEVEL 8.7 MG/DL (8.5-10.1); CARBON DIOXIDE LEVEL 37 MEQ/L (21-32); CHLORIDE LEVEL 100 MEQ/L (98-107); GLOMERULAR FILTRATION RATE > 60.0 (>51); GLUCOSE, FASTING 78 MG/DL (70-105); POTASSIUM SERUM 3.6 MEQ/L (3.5-5.1); SODIUM LEVEL 142 MEQ/L (136-145)
[2016-10-04 07:11] LABS: MEAN CORPUSCULAR HEMOGLOBIN 23.9 pg (27.0-33.0); MEAN CORPUSCULAR VOLUME 82.6 fl (80.0-96.0); PLATELET COUNT, AUTOMATED 151 k/mm3 (150-450); WHITE BLOOD COUNT 2.2 K/mm3 (4.0-10.0)
[2016-10-04] MEDS: IPRATROPIUM 0.5MG/ALBUTEROL 2.5MG INH SOL UD 3ML (DUONEB)(J7620) NEB SCH ×3 (07:22→15:44)
[2016-10-04] MEDS: ADVAIR DISKUS 500/50 INH PWD INH SCH (07:22)
[2016-10-04 08:47] LABS: ANISOCYTOSIS 1+; EOSINOPHILS 1 % (0-5); HYPOCHROMASIA 2+
[2016-10-04] MEDS: predniSONE 20 MG TAB PO SCH (09:38)
[2016-10-04] MEDS: PANTOPRAZOLE 40MG TAB (PROTONIX) PO SCH (09:38)
[2016-10-04] MEDS: DOXYCYCLINE HYCLATE 100 MG TAB PO SCH (09:38)
[2016-10-04] MEDS ORDERED: DOXY10CA PO (09:49)
[2016-10-04] MEDS ORDERED: ADV500INH INH (09:49)
[2016-10-04] MEDS ORDERED: PRED10TA PO (09:49)
[2016-10-04] MEDS ORDERED: ALBU17IN2 INH (09:49)
[2016-10-04] MEDS ORDERED: BREO1INH3 INH (11:31)
--- NOTE | 2016-10-04 11:35 | REP ---
Chest x-ray: Single view. History: Respiratory failure. Comparison study October 03, 2016. Findings: Diffuse interstitial upper lobe lung disease is again seen unchanged. No new infiltrate is seen. Cardiomegaly is observed as before. Impression: Radiographically stable findings. Signed by Rodger Quarles MD 10/04/2016 02:00 P
--- NOTE | 2016-10-04 17:29 | DS.PDOC ---
Discharge Summary General Date of Admission Sep 28, 2016 at 01:18 Date of Discharge 10/04/16 Specialist/Consultants Involve Dr. Zhou of pulmonary Discharge Summary PROCEDURES PERFORMED DURING STAY: None. COMPLICATIONS/CHIEF COMPLAINT: Respiratory Failure ADMISSION DIAGNOSES: 1. . Shortness of breath 2. . Hypoxic and hypercapnic respiratory failure 3. . DISCHARGE DIAGNOSES: 1. . Interstitial lung disease 2. . Hypoxic and hypercapnic respiratory failure 3. . HISTORY OF PRESENT ILLNESS: 56-year-old female with no significant past medical history as the patient has not seen a physician in the past presented to the ER with a chief complaint of shortness of breath. The patient states that her shortness of breath started over a year ago and has progressively gotten worse to the point where she has had difficulty walking 10 feet without stopping to rest. The patient denied any fevers, paroxysmal nocturnal dyspnea, orthopnea, no drenching night sweats, or any swelling of the lower extremities. She denies a history of tobacco use. The patient was admitted to the hospitalist service for further evaluation and management of her shortness of breath. In the ED, a CT scan of the chest revealed diffuse bilateral infiltrates and severe emphysematous changes in the upper lobes bilaterally. In addition, the patient was noted to have hypercapnic respiratory failure with a CO2 level of 71.3 on ABG. A pulmonary consultation was sought and the patient was placed on noninvasive mechanical ventilation. During her hospitalization, the patient was weaned off of BiPAP therapy, and there was no indication to use it as long- term. Infectious diseases was consulted regarding possible infectious etiology of the patient's current presentation, however it does appear that the patient' s findings on CAT scan are suggestive of chronic interstitial lung disease rather than infectious changes. HIV screening was noted to be negative. However , the patient's sputum culture did reveal MRSA susceptible to tetracyclines, and hence the patient will be given a 14 day trial of doxycycline. The possibility of an open lung biopsy or bronchoscopy was discussed with pulmonary and it was deemed that the patient should follow-up as an outpatient for this when her respiratory status is better optimized. In addition, the patient was also noted to have a positive rheumatoid factor which suggests that the patient's lung disease might be a manifestation of underlying connective tissue disease. However, the patient has not had any other skin or joint symptoms suggestive of underlying rheumatoid arthritis or any other connective tissue disease. I have advised the patient to follow-up as an outpatient with rheumatology for further evaluation on this. At this time, the patient states that she is feeling much better and she is ready to go home. She is currently requiring 2 L of oxygen via nasal cannula, which we will provide for her on discharge as well as inhaler and short-term steroid treatments. However, I have expressed to the patient that I will need for her to follow-up with a primary care physician for which we have provided her an appointment for further evaluation and down titration of her supplemental oxygen. DISCHARGE MEDICATIONS: Please see below. ALLERGIES: Please see below. PHYSICAL EXAMINATION ON DISCHARGE: VITAL SIGNS: Please see below. General Exam: Positive: Alert, Cooperative, No Acute Distress ENT Exam: Positive: Atraumatic, Mucous membr. moist/pink Chest Exam: Positive: Diminished, Other (diffuse fine crackles noted anteriorly and posteriorly and most notably in the upper apices bilaterally) Heart Exam: Positive: Normal S1, Normal S2, Rate Normal Abdomen Exam: Positive: Soft, Negative: Tenderness Extremity Exam: Negative: Edema, Tenderness LABORATORY DATA: Please see below. IMAGING: CT of the chest Clinical statement: Chest pain and shortness of breath. Technique: Multiple axial CT images were obtained from the thoracic inlet through the upper abdomen after a bolus administration of nonionic intravenous contrast. Coronal and sagittal reconstructions were also obtained. No comparison is available. Findings: The central pulmonary arteries are unremarkable. The thoracic aorta is unremarkable. Thyroid gland is within normal limits. There is no thoracic lymphadenopathy. There are extensive emphysematous changes in the upper lobes. Diffuse bilateral infiltrates are appreciated. There is a small right-sided pleural effusion. Limited imaging of the upper abdomen is unremarkable. There are no suspicious osseous lesions. Impression: Diffuse bilateral infiltrates. Small right-sided pleural effusion. Severe emphysematous changes in the upper lobes bilaterally. VTE Prophylaxis ordered?: Yes DISCHARGE CONDITION: Medically stable DISPOSITION: Home ACTIVITY: As Tolerated DIET: COPD Diet ITEMS TO FOLLOWUP ON OUTPATIENT: 1. . Follow up as an outpatient with primary care physician within one to 2 weeks 2. . Obtain referrals for pulmonary and rheumatology as an outpatient for further evaluation and management of interstitial lung disease 3. . TIME SPENT ON DISCHARGE: Greater than 30 minutes. Vital Signs/I&Os Vital Signs Date Time Temp Pulse Resp B/P Pulse Ox O2 Delivery O2 Flow Rate FiO2 10/04/16 07:35 Nasal Cannula 2.0 10/04/16 06:00 98.4 77 16 148/68 98 09/30/16 08:00 25 I&O- Last 24 Hours up to 6 AM 10/04/16 06:00 Intake Total 360 ml Output Total 800 ml Balance -440 ml Laboratory Data Labs 24H Laboratory Tests 2 10/04/16 06:18: Anion Gap 5L, Anisocytosis 1+, Atypical Lymphocytes 3, White Blood Count 2.2L, Red Blood Count 4.19, Hemoglobin 10.0L, Hematocrit 34.6L, Mean Corpuscular Volume 82.6, Mean Corpuscular Hemoglobin 23.9L, Mean Corpuscular Hemoglobin Concent 29.0L, Red Cell Distribution Width 17.0H, Platelet Count 151, Neutrophils (%) (Auto) , Lymphocytes (%) (Auto) , Monocytes (%) (Auto) , Eosinophils (%) (Auto) , Basophils (%) (Auto) , Neutrophils # (Auto) , Lymphocytes # (Auto) , Monocytes # (Auto) , Eosinophils # (Auto) , Basophils # ( Auto) , C-Reactive Protein, Quantitative < 0.30, Blood Urea Nitrogen 18, Creatinine 0.60, Sodium Level 142, Potassium Level 3.6, Chloride Level 100, Carbon Dioxide Level 37H, Calcium Level 8.7, Eosinophils (Manual) 1, Glomerular Filtration Rate > 60.0, Hypochromasia 2+, Large Unclassified Cells # , Large Unclassified Cells % , Lymphocytes (Manual) 23, Monocytes (Manual) 2, Neutrophils 71, Platelet Estimate NORMAL CBC/BMP Laboratory Tests 10/04/16 06:18 Calcium Level 8.7, Red Blood Count 4.19, Mean Corpuscular Volume 82.6, Mean Corpuscular Hemoglobin 23.9 L, Mean Corpuscular Hemoglobin Concent 29.0 L, Red Cell Distribution Width 17.0 H, Neutrophils (%) (Auto) , Lymphocytes (%) (Auto) , Monocytes (%) (Auto) , Eosinophils (%) (Auto) , Basophils (%) (Auto) , Neutrophils # (Auto) , Lymphocytes # (Auto) , Monocytes # (Auto) , Eosinophils # (Auto) , Basophils # (Auto) Microbiology Microbiology 09/27/16 Blood Culture - Final, Complete NO GROWTH AFTER 5 DAYS 09/27/16 Blood Culture - Final, Complete NO GROWTH AFTER 5 DAYS 10/01/16 MRSA Screen - Final, Complete 09/28/16 Gram Stain - Final, Complete 09/28/16 Sputum Culture - Final, Complete Staphylococcus Aureus 09/28/16 MRSA Screen - Final, Complete 09/28/16 Respiratory Virus Panel (PCR) ([facility]) - Final, Complete Medications Scheduled Doxycycline Hyclate (Doxycycline Hyclate) 100 Mg Tab 100 MG PO BID Fluticasone/Vilanterol (Breo Ellipta 200-25 Mcg/INH) 1 Inh Inh 1 PUFF INH DAILY Prednisone (Prednisone) 10 Mg Tab 10 MG PO ASDIRECTED Scheduled PRN Albuterol Sulfate (Proventil Hfa) 167 Puff/6.7 Gm Aers 2 PUFFS INH Q6HP PRN PRN SHORTNESS OF BREATH Allergies Coded Allergies: No Known Allergies (Unverified , 09/27/16) LEAH RYDER MD Oct 04, 2016 17:29
== END 2016-10-04 18:05 | disposition home or self-care (01) | DRG 133 ==
LOC: M ED 18:05 → M ED INP 09-28 01:18 → M ICU 09-28 02:34 → M ALC 10-01 17:30 → M MS5PR 10-03 16:00
PROVIDERS: ADMIT Internal Medicine; ATTEND Internal Medicine
DX: J96.01 Acute respiratory failure with hypoxia (principal); J18.9 Pneumonia, unspecified organism; M35.8 Other specified systemic involvement of connective tissue; D86.9 Sarcoidosis, unspecified; D64.9 Anemia, unspecified; K21.9 Gastro-esophageal reflux disease without esophagitis; Z87.891 Personal history of nicotine dependence; J96.02 Acute respiratory failure with hypercapnia

== ENCOUNTER 2016-11-12 20:06 | Inpatient (IN) | payer OTHER ==
[~2016-11-12] VITALS: Ht 167.6 cm; Wt 76.9 kg
[~2016-11-12 20:06] MED LIST: ADV500INH INH; ALBU17IN2 INH; BREO1INH3 INH; DOXY10CA PO; IBUPOTC PO; PRED10TA PO
[2016-11-12] MEDS ORDERED: ACETAMINOPHEN TAB 650MG DOSE (2X325MG) PO ONE (20:45)
[2016-11-12] MEDS: IPRATROPIUM 0.5MG/ALBUTEROL 2.5MG INH SOL UD 3ML (DUONEB)(J7620) NEB PRN ×3 (20:48→21:16)
[2016-11-12 21:09] LABS: ABG BASE EXCESS 5.4 (-2.0-2.0); ABG HCO3 31.1 MEQ/L (22.0-26.0); ABG PARTIAL PRESSURE CO2 50.7 mmHg (35.0-45.0); ABG PARTIAL PRESSURE O2 60.7 mmHg (75.0-100.0); ABG STANDARD HCO3 29.2 MEQ/L (22.0-26.0); ABG TOTAL CO2 32.6 MEQ/L (22.0-29.0); ABG pH (ARTERIAL) 7.405 UNITS (7.350-7.450)
[2016-11-12 21:16] LABS: ANION GAP 8 MEQ/L (8-16); BLOOD UREA NITROGEN 13 MG/DL (7-18); CALCIUM LEVEL 8.1 MG/DL (8.5-10.1); CARBON DIOXIDE LEVEL 30 MEQ/L (21-32); CHLORIDE LEVEL 98 MEQ/L (98-107); CREATININE FOR GFR 0.82 MG/DL (0.55-1.02); GLOMERULAR FILTRATION RATE > 60.0 (>51); GLUCOSE, FASTING 152 MG/DL (70-105); POTASSIUM SERUM 4.4 MEQ/L (3.5-5.1); SODIUM LEVEL 136 MEQ/L (136-145)
[2016-11-12 21:20] LABS: BASO % 0.1 % (0.0-1.0); EOS % 0.4 % (0.0-3.0); LARGE UNSTAINED CELL # 0.1 K/mm3 (0.0-0.4); LARGE UNSTAINED CELL % 1.4 % (0.0-4.0); LYMPH # 0.3 K/mm3 (1.5-4.5); LYMPH % 2.9 % (24.0-44.0); MEAN CORPUSCULAR HEMOGLOBIN 24.4 pg (27.0-33.0); MEAN CORPUSCULAR HGB CONC 30.1 g/dl (32.0-36.5); MONO # 0.5 K/mm3 (0.0-0.8); MONO % 6.1 % (0.0-5.0); NEUTROPHILS % 89.2 % (36.0-66.0); PLATELET COUNT, AUTOMATED 236 k/mm3 (150-450); WHITE BLOOD COUNT 7.8 K/mm3 (4.0-10.0)
[2016-11-12 21:24] LABS: ADD MORPHOLOGY? YES
[2016-11-12 21:49] LABS: ANISOCYTOSIS 2+; HYPOCHROMASIA 1+
[2016-11-12] MEDS ORDERED: ISOVUE-370 76% 100ML VIAL (Q9967) As Ordered ONE (21:53)
--- NOTE | 2016-11-12 23:00 | REPUSA ---
CT angiogram of the chest Clinical statement: fever and shortness of breath. Technique: Multiple axial CT images were obtained from the thoracic inlet through the upper abdomen a fter a bolus administration of nonionic intravenous contrast. Coronal and sagittal reconstructions we re also obtained. Comparison: 09/27/2016. Findings: The pulmonary arteries are well-opacified with contrast, with no intraluminal filling defec ts to suggest embolism. The thoracic aorta is unremarkable. Thyroid gland is within normal limits. Th ere is no thoracic lymphadenopathy. There are extensive nodular areas of infiltrate throughout the monica ngs, and have worsened since the prior study. There is a small right-sided pleural effusion. Extensiv e emphysematous changes are seen in the upper lobes bilaterally. Limited imaging of the upper abdomen is unremarkable. There are no suspicious osseous lesions. Impression: .No evidence of pulmonary embolism. Severe worsening of diffuse patchy nodular infiltrate s throughout the lungs bilaterally. The emphysematous changes in the upper lobes appear more prominen t as well. There is a new small right-sided pleural effusion.
[2016-11-12] MEDS ORDERED: IBUP40TA PO (23:25)
[2016-11-12] MEDS ORDERED: PROA1AER INH (23:25)
[2016-11-12] MEDS ORDERED: VANCOMYCIN HCL 1,000 MG, VIAL MATE ADAPTER 1 EACH in D5W 250 ML IV ONE (23:30)
[2016-11-12] MEDS ORDERED: PIPERACILLIN/TAZOBACTAM SOD 3.375 GM in D5W MINI-BAG PLUS 50 ML IV ONE (23:30)
[2016-11-13] VITALS (7 sets, daily range): BP systolic 104–138; BP diastolic 59–69
[2016-11-13] MEDS ORDERED: LevoFLOXacin IV 750 MG in APPROPRIATE DILUENT 1 EA IV SCH ×2
[2016-11-13] MEDS ORDERED: IPRATROPIUM 0.02% SOLN 0.5MG/2.5 ML NEB INH PRN (00:30)
[2016-11-13] MEDS ORDERED: ALBUTEROL 90 MCG/ACT 8GM HFA INHALER INH PRN (00:30)
[2016-11-13] MEDS ORDERED: LEVALBUTEROL 1.25 MG/0.5 ML CONCENTRATE NEB INH PRN (00:30)
[2016-11-13] MEDS ORDERED: IBUPROFEN 400 MG TAB PO PRN (00:30)
[2016-11-13] MEDS: methylPREDNISolone INJ 125 MG/2 ML VIAL (J2930) IV SCH ×4 (02:30→22:45)
--- NOTE | 2016-11-13 02:36 | HPE ---
DATE OF ADMISSION: 11/13/2016 PRIMARY CARE PROVIDER: [facility], Dr. Zavala CHIEF COMPLAINT: Fever and cough. HISTORY OF PRESENT ILLNESS: The patient is a 56-year-old female who was actually readmitted 09/27/2016 through 10/04/2016. At that time, she was diagnosed with a Staphylococcus aureus pneumonia. She was seen by infectious disease and pulmonary during that hospitalization. She was discharged home on doxycycline and an inhaler and new home oxygen and she was followed. There was concern for potentially rheumatological condition underlying her respiratory issues. The patient tells me that she was seen in followup by Dr. Zhou and was seen within the last two weeks. She reports being told that she has chronic obstructive pulmonary disease (COPD), although she only has a personal tobacco history of five pack-years in the distant past. She lived her life around men in her family did smoke, her father and her brother, whom she spent significant time with throughout her life. She tells me that Dr. Zhou told her she has COPD and she has been treated with an inhaler. For the last several days, she denies any sick contacts, but she is around her grandchildren. She states for the last two days she has had worsening cough, worsening shortness of breath, increased sputum production. She denies chest pain, lightheadedness, dizziness, nausea, vomiting, or diarrhea. At the present time, she is feeling a little bit better after having received nebulizer treatments. PAST MEDICAL HISTORY: Newly diagnosed with COPD. ALLERGIES: Patient has no known drug allergies. FAMILY HISTORY: Noncontributory. REVIEW OF SYSTEMS: Negative other than history of present illness (HPI). PAST SURGICAL HISTORY: None. SOCIAL HISTORY: Patient is a former smoker. Denies alcohol or illicit drug use. She lives with her family. She is accompanied in the emergency room by her daughter and [id number]. HOME MEDICATIONS: - ProAir HFA 108 mcg two puffs inhaled every six hours as needed for shortness of breath - ibuprofen 400 mg every six hours as needed for pain - oxygen 2-3 liters continuously PHYSICAL EXAMINATION: VITAL SIGNS: Temperature (T-max) 103.5, pulse 133, respiratory rate 20, blood pressure 132/78, oxygen saturation 92% on four liters, when I am in the room with her she is actually 96% on four liters and I turned it down to three liters. GENERAL: She is a lethargic -[place] female who is easily arousable to verbal stimuli. She is breathing comfortably and does not appear to be in any acute distress. HEENT: Cranial nerves II-XII are grossly intact. She has moist mucous membranes. No elevation of central venous pressure (CVP). CARDIOVASCULAR: S1-S2 regular. RESPIRATORY: She has scattered fine crackles, prolonged expiratory phase. No lidia wheeze. ABDOMEN: Benign. EXTREMITIES: No cyanosis, clubbing, or edema. LABORATORY STUDIES: WBC 7.8, hemoglobin 10.0, hematocrit 33.2, platelet count 236. Chemistry panel: Sodium 136, potassium 4.4, chloride 98, bicarbonate 30, BUN 13, creatinine 0.8, lactic acid 0.8, BNP is within normal limits. ABG reveals a pH of 7.4, pCO2 of 50.7, pO2 of 60.7. Influenza swab is negative. Blood cultures are pending. IMAGING: The patient did have a CT angiography of her chest that reveals no PE, severe worsening of diffuse patchy nodular infiltrates throughout the lungs bilaterally, emphysematous changes in the upper lobes appear more prominent as well. There is a new small right-sided pleural effusion. ASSESSMENT AND PLAN: This is a 56-year-old female returning with fever and cough after being discharged just over one month ago. 1. Decompensated chronic obstructive pulmonary disease (COPD). Patient carries a new diagnosis of COPD. She appears to be having decompensation of this. She will be admitted to the progressive care unit. I will treat her with IV Solu-Medrol, nebulizer treatments with Xopenex and ipratropium. My suspicion for viral upper respiratory infection (URI) is high. I will check a respiratory polymerase chain reaction (PCR) panel. In the meantime, given that she has recently been hospitalized, I will treat her for health care-associated pneumonia with vancomycin and levofloxacin to cover atypical organisms given the reticular nodular pattern. Given that the patient is telling me her symptoms have never really improved since her last discharge, and the reticular nodular nature of her infiltrates, and the fact that she has Staphylococcus aureus on her previous pneumonia, she may benefit from inpatient pulmonary consultation. She reportedly had to get an outpatient CT scan tomorrow and followup with Dr. Zhou this week. She may benefit from being sooner rather than later, if she fails to improve with concurrent therapies. There may be an underlying rheumatological condition; we will defer to her front end web developer. 2. Deep vein thrombosis (DVT) prophylaxis. Patient is on Lovenox.
--- NOTE | 2016-11-13 05:04 | PHACANCOPD ---
PHARMACY VANCOMYCIN DOSING Pt Demographics Demographics Patient Age:56 , Weight:78.100 , Gender: female Adjusted Body Weight Date: 11/13/16, Adjusted Body Weight: [66.8] Kg Vancomycin Vancomycin indication: HCAP Vancomycin Target Ranges: 10-20 mcg/ml Vancomycin Load Y/N: No Load Dose Date Time Vancomycin Load Dose: Date: Time: Vancomycin Dose Date: 11/13/16. Current Vancomycin Dose: [1GM Q12H] Intermittent Dosing?: No Labs Labs Laboratory Tests 11/12/16 20:26 Calcium Level 8.1 L, Total Creatine Kinase 39, Red Blood Count 4.10, Mean Corpuscular Volume 81.0, Mean Corpuscular Hemoglobin 24.4 L, Mean Corpuscular Hemoglobin Concent 30.1 L, Red Cell Distribution Width 17.0 H, Neutrophils (%) ( Auto) 89.2 H, Lymphocytes (%) (Auto) 2.9 L, Monocytes (%) (Auto) 6.1 H, Eosinophils (%) (Auto) 0.4, Basophils (%) (Auto) 0.1, Neutrophils # (Auto) 7.0, Lymphocytes # (Auto) 0.3 L, Monocytes # (Auto) 0.5, Eosinophils # (Auto) 0.0, Basophils # (Auto) 0.0 Micro Microbiology 11/12/16 Blood Culture, Received Pending 11/12/16 Blood Culture, Received Pending 11/13/16 Respiratory Virus Panel (PCR) ([facility]) - Final, Complete Coronavirus 229E 11/12/16 Influenza Virus Type A Antigen - Final, Complete 11/12/16 Influenza Virus Type B Antigen - Final, Complete Creatinine Clearance Date:11/13/16. Creatinine Clearance: [78]CALCULATED. Pending Labs VANCOMYCIN TROUGH DUE 11/14@0500 Assessment and Plan Maintaining Current Dose?: Yes Reason for dose change: No Dose Change Pharmacist Note Pharmacist Note Date: 11/13/16. Pharmacist note:HCAP TREATED W/LEVOFLOXACIN 750MG IV Q24H AND VANCOMYCIN PER CONSULT: Vancomycin 1 gm@12mid,then q12h beginning @0600: nkda, crcl calculated as 78,SCR=0.82:trough ordered for 3/9w/am labs:Will continue to follow SCR and levels [facility] Nov 13, 2016 05:04
--- NOTE | 2016-11-13 05:43 | REP ---
Clinical: Dyspnea and cough. Comparison: 10/04/2016. Findings: Diffuse chronic interstitial changes suggesting emphysematous disease along with superimposed bilateral multifocal infiltrates. No obvious effusion. No pneumothorax. Mediastinum and cardiac silhouette are within normal limits. Skeletal structures are intact. Impression: Chronic interstitial changes and emphysematous disease. Acute superimposed multifocal infiltrates. Signed by Geo Villanuvea MD 11/13/2016 05:35 A
[2016-11-13] MEDS ORDERED: VANCOMYCIN HCL 1,000 MG, VIAL MATE ADAPTER 1 EACH in D5W 250 ML IV SCH (06:00)
[2016-11-13] MEDS: IPRATROPIUM 0.02% SOLN 0.5MG/2.5 ML NEB INH SCH ×4 (07:04→19:26)
[2016-11-13] MEDS: LEVALBUTEROL 1.25 MG/0.5 ML CONCENTRATE NEB INH SCH ×4 (07:04→19:26)
[2016-11-13] MEDS: ENOXAPARIN 40 MG/0.4 ML SYRINGE (J1650) SC SCH (09:58)
--- NOTE | 2016-11-13 11:07 | ECGEPIP ---
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
[2016-11-14] MEDS ORDERED: SLF 3 ML SYR IV PRN (00:45)
[2016-11-14 05:25] VITALS: BP 133/78
[2016-11-14] MEDS: SLF 3 ML SYR IV SCH ×3 (06:00→22:00)
[2016-11-14 06:04] LABS: MEAN CORPUSCULAR HEMOGLOBIN 24.7 pg (27.0-33.0); MEAN CORPUSCULAR HGB CONC 29.7 g/dl (32.0-36.5); MEAN CORPUSCULAR VOLUME 83.2 fl (80.0-96.0); RED CELL DISTRIBUTION WIDTH 17.1 % (11.5-14.5); WHITE BLOOD COUNT 7.5 K/mm3 (4.0-10.0)
[2016-11-14 06:33] LABS: ANION GAP 2 MEQ/L (8-16); BLOOD UREA NITROGEN 11 MG/DL (7-18); CALCIUM LEVEL 8.6 MG/DL (8.5-10.1); CARBON DIOXIDE LEVEL 36 MEQ/L (21-32); CHLORIDE LEVEL 98 MEQ/L (98-107); CREATININE FOR GFR 0.71 MG/DL (0.55-1.02); GLOMERULAR FILTRATION RATE > 60.0 (>51); GLUCOSE, FASTING 170 MG/DL (70-105); POTASSIUM SERUM 5.1 MEQ/L (3.5-5.1); SODIUM LEVEL 136 MEQ/L (136-145)
[2016-11-14 07:45] VITALS: BP 133/73
[2016-11-14] MEDS: methylPREDNISolone INJ 125 MG/2 ML VIAL (J2930) IV SCH (08:02)
[2016-11-14] MEDS: ENOXAPARIN 40 MG/0.4 ML SYRINGE (J1650) SC SCH (08:02)
[2016-11-14] MEDS: IPRATROPIUM 0.02% SOLN 0.5MG/2.5 ML NEB INH SCH ×4 (08:11→21:04)
[2016-11-14] MEDS: LEVALBUTEROL 1.25 MG/0.5 ML CONCENTRATE NEB INH SCH ×4 (08:11→21:04)
--- NOTE | 2016-11-14 13:24 | IPNPDOC ---
Subjective Date Seen The patient was seen on 11/14/16. Subjective Chief Complaint/HPI The patient is a 56-year-old female admitted with a reason for visit of Copd Exacerbation. General: Denies: Chills, Night Sweats Constitutional: Denies: Chills, Fever Eyes: Denies: Pain, Vision change ENT: Denies: Ear Pain, Head Aches Skin: Denies: Lesions, Rash Pulmonary: Reports: Cough, Dyspnea Cardiovascular: Denies: Chest Pain, Palpitations Gastrointestinal: Denies: Nausea, Vomiting Genitourinary: Denies: Dysuria, Frequency Hematologic: Denies: Bleeding Excessively, Bruising Objective Physical Examination General Exam: Positive: Alert, Cooperative, No Acute Distress ENT Exam: Positive: Atraumatic, Mucous membr. moist/pink Neck Exam: Negative: JVD Chest Exam: Positive: Diminished, Rales (Scattered), Rhonchi, Negative: Wheezing Heart Exam: Positive: Normal S1, Normal S2, Rate Normal Abdomen Exam: Positive: Soft, Negative: Tenderness Extremity Exam: Negative: Swelling, Tenderness Assessment /Plan Plan/VTE VTE Prophylaxis Ordered?: Yes Plan Acute On Chronic Hypoxic Respiratory Failure 2/2 Viral Respiratory Tract Infection with underlying Restrictive Lung Disease, possible Rheumatoid Lung Disease CTA of the Chest noted from admission The patient's respiratory status has significantly improved here with IV Steroids Repiratory Panel + for Coronavirus Patient currently comfortably saturating 96% on 3L via NC, which is her baseline --I have asked the patient to be OOB, and ambulate about the room today The patient has been following with Dr. Zhou of Pulmonary as an outpatient for further evaluation of the etiology of her lung disease as she was just recently hospitalized here in 09/2016. Obtain outpatient pulmonary records order placed I have reached out to Dr. Zhou regarding the patient's latest studies as an outpatient-->Patient was noted to have a FEV1 of 25% on most recent PFT study At this time we will with-hold ordering a Follow up CT Scan of the Chest until the patient's current Viral infection resolves, as discussed with Dr. Zhou. We will eventually transition the patient to Prednisone 40mg PO Daily on discharge, and she will follow up with Dr. Zhou thereafter as an outpatient for a follow up CT The patient will also need to F/U with Rheumatology in [place] for further evaluation and management DVT prophylaxis- Lovenox VS, I&O, 24H, Fishbone Vital Signs/I&O Vital Signs Date Time Temp Pulse Resp B/P Pulse Ox O2 Delivery O2 Flow Rate FiO2 11/14/16 09:00 Nasal Cannula 3.0 11/14/16 07:45 95.2 92 22 133/73 96 11/12/16 22:35 92 I&O- Last 24 Hours up to 6 AM 11/14/16 06:00 Intake Total 1080 ml Output Total 1425 ml Balance -345 ml Laboratory Data 24H LABS Laboratory Tests 2 11/14/16 05:11: Anion Gap 2L, Blood Urea Nitrogen 11, Creatinine 0.71, Sodium Level 136, Potassium Level 5.1, Chloride Level 98, Carbon Dioxide Level 36H, Calcium Level 8.6, Glomerular Filtration Rate > 60.0, Vancomycin Level Trough 5.2L CBC/BMP Laboratory Tests 11/14/16 05:11 Calcium Level 8.6, Red Blood Count 3.86 L, Mean Corpuscular Volume 83.2, Mean Corpuscular Hemoglobin 24.7 L, Mean Corpuscular Hemoglobin Concent 29.7 L, Red Cell Distribution Width 17.1 H Microbiology Microbiology 11/12/16 Blood Culture - Preliminary, Resulted No growth after 24 hours . All specim... 11/12/16 Blood Culture - Preliminary, Resulted No growth after 24 hours . All specim... 11/13/16 Respiratory Virus Panel (PCR) ([facility]) - Final, Complete Coronavirus 229E 11/12/16 Influenza Virus Type A Antigen - Final, Complete 11/12/16 Influenza Virus Type B Antigen - Final, Complete LEAH RYDER MD Nov 14, 2016 13:24
[2016-11-14 15:09] VITALS: BP 141/71
[2016-11-14] MEDS: methylPREDNISolone INJ 40 MG/1 ML VIAL (J2920) IV SCH (19:21)
[2016-11-14 22:00] VITALS: BP 130/58
[2016-11-15 06:00] VITALS: BP 129/68
[2016-11-15] MEDS: methylPREDNISolone INJ 40 MG/1 ML VIAL (J2920) IV SCH ×2 (06:17→18:26)
[2016-11-15] MEDS: SLF 3 ML SYR IV SCH ×2 (06:17→13:34)
[2016-11-15 06:49] LABS: MEAN CORPUSCULAR HEMOGLOBIN 24.4 pg (27.0-33.0); MEAN CORPUSCULAR HGB CONC 29.2 g/dl (32.0-36.5); MEAN CORPUSCULAR VOLUME 83.6 fl (80.0-96.0); RED CELL DISTRIBUTION WIDTH 16.8 % (11.5-14.5); WHITE BLOOD COUNT 9.3 K/mm3 (4.0-10.0)
[2016-11-15 06:59] LABS: ANION GAP 5 MEQ/L (8-16); BLOOD UREA NITROGEN 17 MG/DL (7-18); CALCIUM LEVEL 8.5 MG/DL (8.5-10.1); CARBON DIOXIDE LEVEL 36 MEQ/L (21-32); CHLORIDE LEVEL 98 MEQ/L (98-107); CREATININE FOR GFR 0.68 MG/DL (0.55-1.02); GLOMERULAR FILTRATION RATE > 60.0 (>51); GLUCOSE, FASTING 231 MG/DL (70-105); POTASSIUM SERUM 4.7 MEQ/L (3.5-5.1); SODIUM LEVEL 139 MEQ/L (136-145)
[2016-11-15] MEDS: IPRATROPIUM 0.02% SOLN 0.5MG/2.5 ML NEB INH SCH ×3 (08:17→15:35)
[2016-11-15] MEDS: LEVALBUTEROL 1.25 MG/0.5 ML CONCENTRATE NEB INH SCH ×3 (08:17→15:35)
[2016-11-15] MEDS: ENOXAPARIN 40 MG/0.4 ML SYRINGE (J1650) SC SCH (08:41)
[2016-11-15] MEDS ORDERED: PRED20TA PO (10:07)
[2016-11-15 14:00] VITALS: BP 161/78
--- NOTE | 2016-11-15 14:44 | DS.PDOC ---
Discharge Summary General Date of Admission Nov 13, 2016 at 00:21 Date of Discharge Discharge Summary PROCEDURES PERFORMED DURING STAY: None. ADMITTING DIAGNOSES: 1. . Acute on chronic hypoxic respiratory failure 2. . Restrictive lung disease 3. . DISCHARGE DIAGNOSES: 1. . Acute on chronic hypoxic respiratory failure 2. . Restrictive lung disease 3. . COMPLICATIONS/CHIEF COMPLAINT: Fever, shortness of breath HISTORY OF PRESENT ILLNESS: . 56-year-old female with past medical history of newly diagnosed restrictive lung disease and hypoxia requiring 3 L of oxygen via nasal cannula at baseline presented to the ER with a chief complaint of worsening shortness of breath, productive cough, and fever over the last 24-48 hours. The patient states that she has followed up with Dr. Zhou since her discharge in September 2016. She did note that she had some studies done at her office, but was unaware of the results. The patient states that at this time she denied any chest pain, palpitations, lightheadedness, dizziness, nausea, vomiting, diarrhea, PND, orthopnea, or any lower extremity swelling. In the ER, a CTA of the chest was done which revealed no evidence of pulmonary embolism, and emphysematous changes in the upper lobes. The patient was admitted to the hospitalist service for further evaluation and management of the patient's worsening dyspnea and fever. During the patient's stay in the hospital, a respiratory panel was noted to be positive for the infante virus. The patient was started on IV steroids, and continued on nebulizer treatments. The patient's respiratory status significantly improved over the ensuing 48 hours. I did speak to Dr. Zhou of pulmonary to follow-up on the patient's outpatient studies. It was of note that the patient's FEV1 was noted to be 25% on her PFTs. 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 In addition, Dr. Zhou recommended that the patient be discharged on 40 mg of prednisone daily, until she follows up in the outpatient practice in 2 weeks. In addition, the patient will get a CT scan of the chest done at that time to further assess her progress. In addition, I have also recommended that the patient follow-up with rheumatology for further workup. At this time, the patient states that she's feeling well and she is eager to return home. DISCHARGE MEDICATIONS: Please see below. ALLERGIES: Please see below. PHYSICAL EXAMINATION ON DISCHARGE: VITAL SIGNS: Please see below. General Exam: Positive: Alert, Cooperative, No Acute Distress ENT Exam: Positive: Atraumatic, Mucous membr. moist/pink Neck Exam: Negative: JVD Chest Exam: Positive: Diminished, Rales (Scattered), Rhonchi, Negative: Wheezing Heart Exam: Positive: Normal S1, Normal S2, Rate Normal Abdomen Exam: Positive: Soft, Negative: Tenderness Extremity Exam: Negative: Swelling, Tenderness LABORATORY DATA: Please see below. IMAGING: CT angiogram of the chest Clinical statement: fever and shortness of breath. Technique: Multiple axial CT images were obtained from the thoracic inlet through the upper abdomen after a bolus administration of nonionic intravenous contrast. Coronal and sagittal reconstructions were also obtained. Comparison: 09/27/2016. Findings: The pulmonary arteries are well-opacified with contrast, with no intraluminal filling defects to suggest embolism. The thoracic aorta is unremarkable. Thyroid gland is within normal limits. There is no thoracic lymphadenopathy. There are extensive nodular areas of infiltrate throughout the lungs, and have worsened since the prior study. There is a small right-sided pleural effusion. Extensive emphysematous changes are seen in the upper lobes bilaterally. Limited imaging of the upper abdomen is unremarkable. There are no suspicious osseous lesions. Impression: .No evidence of pulmonary embolism. Severe worsening of diffuse patchy nodular infiltrates throughout the lungs bilaterally. The emphysematous changes in the upper lobes appear more prominent as well. There is a new small right-sided pleural effusion. PROGNOSIS: Medically stable at this time ACTIVITY: As tolerated. DIET: . Regular diet DISCHARGE PLAN: DISPOSITION: . DISCHARGE INSTRUCTIONS: 1. .Follow up with PCP within 1 week 2. . Follow-up with Dr. Zhou of pulmonary in 2 weeks 3. . Follow-up with rheumatology in [place] for further workup of underlying rheumatological disease DISCHARGE CONDITION: Stable. TIME SPENT ON DISCHARGE: Greater than 30 minutes. Vital Signs/I&Os Vital Signs Date Time Temp Pulse Resp B/P Pulse Ox O2 Delivery O2 Flow Rate FiO2 11/15/16 11:46 Nasal Cannula 3.0 11/15/16 06:00 98.7 92 18 129/68 94 11/12/16 22:35 92 I&O- Last 24 Hours up to 6 AM 11/15/16 06:00 Intake Total 2100 ml Output Total 550 ml Balance 1550 ml Laboratory Data Labs 24H Laboratory Tests 2 11/15/16 05:21: Anion Gap 5L, Blood Urea Nitrogen 17#, Creatinine 0.68, Sodium Level 139, Potassium Level 4.7, Chloride Level 98, Carbon Dioxide Level 36H, Calcium Level 8.5, Glomerular Filtration Rate > 60.0 CBC/BMP Laboratory Tests 11/15/16 05:20 Red Blood Count 3.60 L, Mean Corpuscular Volume 83.6, Mean Corpuscular Hemoglobin 24.4 L, Mean Corpuscular Hemoglobin Concent 29.2 L, Red Cell Distribution Width 16.8 H 11/15/16 05:21 Calcium Level 8.5 Microbiology Microbiology 11/12/16 Blood Culture - Preliminary, Resulted No Growth after 48 hours. All Specime... 11/12/16 Blood Culture - Preliminary, Resulted No Growth after 48 hours. All Specime... 11/13/16 Respiratory Virus Panel (PCR) ([facility]) - Final, Complete Coronavirus 229E 11/12/16 Influenza Virus Type A Antigen - Final, Complete 11/12/16 Influenza Virus Type B Antigen - Final, Complete Discharge Medications Scheduled Prednisone (Prednisone) 20 Mg Tab 20 MG PO ASDIRECTED Scheduled PRN Albuterol Sulfate (Proair Hfa) 108 Mcg/Act Aer 2 PUFF INH Q6H PRN PRN SHORTNESS OF BREATH (Reported) Ibuprofen (Ibuprofen) 400 Mg Tab 400 MG PO Q6H PRN PRN PAIN (Reported) Allergies Coded Allergies: No Known Allergies (Unverified , 09/27/16) LEAH RYDER MD Nov 15, 2016 14:44
[2016-11-15 15:30] VITALS: BP 154/74
== END 2016-11-15 19:01 | disposition home or self-care (01) | DRG 139 ==
LOC: EDBD 20:06 → M ED 21:39 → M ED INP 11-13 00:21 → M PCU 11-13 01:48 → M MSPAV 11-14 14:49
PROVIDERS: ADMIT Internal Medicine; ATTEND Internal Medicine
DX: J18.9 Pneumonia, unspecified organism (principal); J96.22 Acute and chronic respiratory failure with hypercapnia; Z99.81 Dependence on supplemental oxygen; M05.10 Rheumatoid lung disease with rheumatoid arthritis of unspecified site; B97.29 Other coronavirus as the cause of diseases classified elsewhere; Z79.51 Long term (current) use of inhaled steroids; Z79.1 Long term (current) use of non-steroidal anti-inflammatories (NSAID); Z87.891 Personal history of nicotine dependence

== ENCOUNTER → 2016-12-06 | Outpatient (REF) | payer OTHER ==
[~2016-12-06] MED LIST changes: +IBUP40TA PO; +PRED20TA PO; +PROA1AER INH
== END ==
LOC: M SFHCWAGY 16:39
PROVIDERS: ATTEND Hospitalist
DX: R03.0 Elevated blood-pressure reading, without diagnosis of hypertension (principal)

== ENCOUNTER → 2016-12-10 | Outpatient (REF) | payer OTHER ==
[2016-12-10 14:15] LABS: BASO % 0.5 % (0.0-1.0); EOS # 0.1 K/mm3 (0.0-0.50); LARGE UNSTAINED CELL # 0.1 K/mm3 (0.0-0.4); LARGE UNSTAINED CELL % 3.4 % (0.0-4.0); LYMPH # 0.5 K/mm3 (1.5-4.5); MEAN CORPUSCULAR HEMOGLOBIN 24.7 pg (27.0-33.0); MEAN CORPUSCULAR HGB CONC 30.4 g/dl (32.0-36.5); MEAN CORPUSCULAR VOLUME 81.3 fl (80.0-96.0); MONO # 0.3 K/mm3 (0.0-0.8); MONO % 6.5 % (0.0-5.0); NEUTROPHILS # 3.1 K/mm3 (1.8-7.7); NEUTROPHILS % 77.6 % (36.0-66.0); PLATELET COUNT, AUTOMATED 206 k/mm3 (150-450); RED CELL DISTRIBUTION WIDTH 18.1 % (11.5-14.5)
[2016-12-10 14:38] LABS: ALBUMIN 2.6 GM/DL (3.2-5.2); ALBUMIN/GLOBULIN RATIO 0.63 (1.00-1.93); ALKALINE PHOSPHATASE 87 U/L (45-117); ALT/SGPT 25 U/L (12-78); ANION GAP 6 MEQ/L (8-16); AST/SGOT 19 U/L (15-37); BILIRUBIN,TOTAL 0.4 MG/DL (0.2-1.0); BLOOD UREA NITROGEN 11 MG/DL (7-18); CALCIUM LEVEL 8.7 MG/DL (8.5-10.1); CARBON DIOXIDE LEVEL 35 MEQ/L (21-32); CHLORIDE LEVEL 96 MEQ/L (98-107); CREATININE FOR GFR 0.68 MG/DL (0.55-1.02); FREE T4 1.41 NG/DL (0.76-1.46); GLOMERULAR FILTRATION RATE > 60.0 (>51); GLUCOSE, FASTING 77 MG/DL (70-105); MAGNESIUM LEVEL 2.6 MG/DL (1.8-2.4); POTASSIUM SERUM 3.9 MEQ/L (3.5-5.1); SODIUM LEVEL 137 MEQ/L (136-145); TOTAL PROTEIN 6.7 GM/DL (6.4-8.2)
== END ==
LOC: M SFHCPLAZ 10:10
DX: D64.9 Anemia, unspecified (principal); R03.0 Elevated blood-pressure reading, without diagnosis of hypertension

== ENCOUNTER → 2016-12-20 | Outpatient (CLI) | payer OTHER ==
[~2016-12-20] MED LIST changes: +PRIL20CA9 PO
[2016-12-20 12:41] LABS: ABG BASE EXCESS 8.6 (-2.0-2.0); ABG HCO3 34.5 MEQ/L (22.0-26.0); ABG PARTIAL PRESSURE CO2 54.2 mmHg (35.0-45.0); ABG PARTIAL PRESSURE O2 69.1 mmHg (75.0-100.0); ABG STANDARD HCO3 32.3 MEQ/L (22.0-26.0); ABG TOTAL CO2 36.2 MEQ/L (22.0-29.0); ABG pH (ARTERIAL) 7.422 UNITS (7.350-7.450)
[2016-12-20 12:43] LABS: MEAN CORPUSCULAR HEMOGLOBIN 25.1 pg (27.0-33.0); MEAN CORPUSCULAR HGB CONC 30.5 g/dl (32.0-36.5); MEAN CORPUSCULAR VOLUME 82.1 fl (80.0-96.0); WHITE BLOOD COUNT 4.9 K/mm3 (4.0-10.0)
[2016-12-20 12:59] LABS: INR 1.02
[2016-12-20 13:17] LABS: ANION GAP 2 MEQ/L (8-16); BLOOD UREA NITROGEN 21 MG/DL (7-18); CALCIUM LEVEL 9.1 MG/DL (8.5-10.1); CARBON DIOXIDE LEVEL 39 MEQ/L (21-32); CHLORIDE LEVEL 99 MEQ/L (98-107); CREATININE FOR GFR 0.79 MG/DL (0.55-1.02); GLOMERULAR FILTRATION RATE > 60.0 (>51); GLUCOSE, FASTING 99 MG/DL (70-105); SODIUM LEVEL 140 MEQ/L (136-145)
--- NOTE | 2016-12-20 16:13 | REP ---
Chest x-ray: Two views: History: Pulmonary fibrosis. Preop assessment. Comparison: Chest x-ray 11/12/2016. Comparison CT study from the same date. Findings: There is moderate upper lobe predominant diffuse interstitial lung disease. The lungs are exposed at a relatively low level of inspiration as before. The lower lobes have cleared somewhat since the prior 11/12/2016 imaging studies. Heart is not enlarged. There is no evidence of pleural effusion. Impression: Moderate predominately upper lobe distribution interstitial lung fibrosis pattern. Relatively low level of inspiration. Lower lobes are somewhat improved compared to 11/12/2016. Signed by Rodger Quarles MD 12/20/2016 06:00 P
--- NOTE | 2016-12-21 12:54 | ECGEPIP ---
Stationary ECG Study [facility] Test Date: 2016-12-20 Pat Name: JANENE FERNANDEZ Department: Room: - Gender: F Graduate Teaching Assistant: : 1960 Requested By: Micky Vitale Order Number: [id number] Reading MD: Juan Delgado Measurements Intervals [place] Rate: 106 P: 53 [place]: 118 QRS: 74 QRSD: 79 T: 46 QT: 319 QTc: 424 Interpretive Statements SINUS TACHYCARDIA WITH SHORT [place] INTERVAL poor R-wave progression. ABNORMAL RHYTHM ECG Electronically Signed On 12-21-2016 12:54:24 EDT by Juan Delgado
== END ==
LOC: M ADMPAT 11:11
PROVIDERS: ATTEND Thoracic Surgery (Cardiothoracic Vascular Surgery)
DX: Z01.812 Encounter for preprocedural laboratory examination (principal); J84.10 Pulmonary fibrosis, unspecified; R00.0 Tachycardia, unspecified; R94.31 Abnormal electrocardiogram [ECG] [EKG]

== ENCOUNTER 2017-01-04 16:08 | Emergency (ER) | payer OTHER ==
[~2017-01-04] VITALS: Ht 167.6 cm; Wt 72.6 kg
[2017-01-04] MEDS ORDERED: ACETAMINOPHEN 325 MG TAB PO ONE (16:45)
--- NOTE | 2017-01-04 17:09 | REP ---
CT Head without contrast HISTORY: Headache COMPARISON: None There is no intraparenchymal hemorrhage, acute infarct, mass or midline shift. The ventricular system is normal in appearance. There is no extra cerebral collection. There is no fracture. The visualized sinuses are clear. IMPRESSION: There is no intracranial lesion. Signed by Freeman Jeffries MD 01/04/2017 05:01 P
[2017-01-04 17:11] VITALS: BP 142/70
--- NOTE | 2017-01-06 10:49 | REP ---
CT Head without contrast HISTORY: Headache COMPARISON: None There is no intraparenchymal hemorrhage, infarct, mass or midline shift. The ventricular system is normal in appearance. There is no extra cerebral collection. There is no fracture. The visualized sinuses are clear. IMPRESSION: There is no intracranial lesion. Signed by Freeman Jeffries MD 01/06/2017 10:54 A
== END 2017-01-04 17:27 | disposition home or self-care (01) ==
LOC: M ED 16:32
DX: R51 Headache (principal); J44.9 Chronic obstructive pulmonary disease, unspecified; K21.9 Gastro-esophageal reflux disease without esophagitis

== ENCOUNTER 2017-01-10 13:30 | Inpatient (IN) | payer OTHER, SELFPAY ==
[~2017-01-10] VITALS: Ht 167.6 cm; Wt 88.4 kg
[2017-02-06 11:19] VITALS: BP 118/74
[2017-02-11] MEDS ORDERED: MUPIROCIN 2% OINT 22 GM TUBE TOP SCH (11:15)
[2017-02-11] MEDS ORDERED: ceFAZolin SOD 1 GM in D5W MINI-BAG PLUS 50 ML IV ONE (11:15)
[2017-02-11] MEDS ORDERED: LR 1,000 ML IV ONE (11:15)
[2017-02-11] MEDS ORDERED: MIDAZOLAM INJ 2 MG/2 ML VIAL (J2250) As Ordered ONE ×2 (13:41→13:42)
[2017-02-11] MEDS ORDERED: fentaNYL 100 MCG/2 ML INJECTION (J3010) As Ordered ONE (13:41)
[2017-02-11] MEDS ORDERED: fentaNYL 250 MCG/5 ML INJECTION (J3010) As Ordered ONE (13:42)
[2017-02-11] MEDS ORDERED: LIDOCAINE 2% INJ 100 MG/5 ML SDV (FOR ANES.) As Ordered ONE (13:42)
[2017-02-11] MEDS ORDERED: ROCURONIUM BROMIDE 50 MG/5 ML VIAL As Ordered ONE ×2 (13:42→15:39)
[2017-02-11] MEDS ORDERED: PROPOFOL 200 MG/20 ML VIAL As Ordered ONE (13:42)
[2017-02-11] MEDS: fentaNYL 100 MCG/2 ML INJECTION (J3010) IV SCH ×2 (13:55→14:10)
[2017-02-11] MEDS: MIDAZOLAM INJ 2 MG/2 ML VIAL (J2250) IV SCH ×2 (13:55→14:10)
[2017-02-11] MEDS ORDERED: BUPIVACAINE LIPOSOME/PF 1.3% 20 ML VIAL (13.3MG/ML)(EXPAREL) As Ordered ONE (14:36)
[2017-02-11] MEDS ORDERED: BUPIVACAINE HCL 0.5% 10 ML VIAL As Ordered ONE (14:37)
[2017-02-11] MEDS ORDERED: PHENYLephrine HCL 500 MCG/5 ML (100MCG/ML) SYRINGE (J2370) As Ordered ONE (15:38)
[2017-02-11] MEDS ORDERED: ePHEDrine SULFATE 25 MG/5 ML(5MG/ML) SYRINGE As Ordered ONE (15:39)
[2017-02-11] MEDS ORDERED: NEOSTIGMINE 1MG/ML 5 ML SYRINGE (J2710) As Ordered ONE (15:56)
[2017-02-11] MEDS ORDERED: GLYCOPYRROLATE INJ 0.2 MG/ML 2 ML VIAL As Ordered ONE ×2 (15:56→16:29)
[2017-02-11] MEDS ORDERED: ONDANSETRON 4MG/2ML VIAL (J2405) As Ordered ONE (15:56)
[2017-02-11] MEDS: KCL 20MEQ IN D5/NS 1000ML 1,000 ML IV SCH (16:49)
[2017-02-11] MEDS ORDERED: ONDANSETRON 4MG/2ML VIAL (J2405) IV PRN ×3 (17:00→18:45)
[2017-02-11] MEDS ORDERED: METOCLOPRAMIDE INJ 10MG/2ML VIAL (J2765) IV PRN ×2 (17:00→18:45)
[2017-02-11] MEDS ORDERED: FENTANYL/BUPIVACAINE/NACL BAG 250 ML EPIDURAL SCH (17:00)
[2017-02-11] MEDS ORDERED: BISACODYL 10 MG SUPP PR PRN (17:00)
[2017-02-11] MEDS ORDERED: EPIDURAL/PCA KEYS XX PRN (17:00)
[2017-02-11] MEDS ORDERED: NALOXONE INJ 0.4 MG/1 ML VIAL (J2310) IV PRN (17:00)
[2017-02-11] MEDS ORDERED: diphenhydrAMINE INJ 50MG/ML VIAL (J1200) IV PRN (17:00)
[2017-02-11] MEDS ORDERED: ACETAMINOPHEN TAB 650MG DOSE (2X325MG) PO PRN (17:00)
[2017-02-11] MEDS ORDERED: WALLBOXKEY XX PRN (17:00)
[2017-02-11] MEDS ORDERED: PERCOCET 5MG/325MG TAB PO PRN ×3 (17:00→18:45)
[2017-02-11] MEDS ORDERED: LEVALBUTEROL 1.25 MG/0.5 ML CONCENTRATE NEB NEB PRN (17:00)
[2017-02-11] MEDS ORDERED: FENTANYL 2MCG/ML BUPIVACAINE 0.0625% NACL 250ML IV BAG As Ordered ONE (17:03)
[2017-02-11] MEDS ORDERED: LIDOCAINE 1% MDV 20ML VIAL XX SCH (17:15)
[2017-02-11 18:07] LABS: BASO % 0.3 % (0.0-1.0); EOS # 0.1 K/mm3 (0.0-0.50); EOS % 2.2 % (0.0-3.0); LARGE UNSTAINED CELL # 0.1 K/mm3 (0.0-0.4); LARGE UNSTAINED CELL % 1.7 % (0.0-4.0); LYMPH # 0.4 K/mm3 (1.5-4.5); LYMPH % 6.4 % (24.0-44.0); MEAN CORPUSCULAR HEMOGLOBIN 27.1 pg (27.0-33.0); MEAN CORPUSCULAR HGB CONC 31.2 g/dl (32.0-36.5); MEAN CORPUSCULAR VOLUME 86.7 fl (80.0-96.0); MONO # 0.2 K/mm3 (0.0-0.8); MONO % 2.6 % (0.0-5.0); NEUTROPHILS # 4.9 K/mm3 (1.8-7.7); NEUTROPHILS % 86.9 % (36.0-66.0); PLATELET COUNT, AUTOMATED 203 k/mm3 (150-450); RED CELL DISTRIBUTION WIDTH 16.2 % (11.5-14.5); WHITE BLOOD COUNT 5.6 K/mm3 (4.0-10.0)
[2017-02-11 18:08] LABS: ABG BASE EXCESS 3.6 (-2.0-2.0); ABG HCO3 33.8 MEQ/L (22.0-26.0); ABG STANDARD HCO3 27.7 MEQ/L (22.0-26.0); ABG TOTAL CO2 36.6 MEQ/L (22.0-29.0)
[2017-02-11 18:16] LABS: ABG PARTIAL PRESSURE CO2 88.8 mmHg (35.0-45.0); ABG pH (ARTERIAL) 7.199 UNITS (7.350-7.450)
[2017-02-11 18:25] LABS: ANION GAP 5 MEQ/L (8-16); BLOOD UREA NITROGEN 15 MG/DL (7-18); CALCIUM LEVEL 8.6 MG/DL (8.5-10.1); CARBON DIOXIDE LEVEL 34 MEQ/L (21-32); CHLORIDE LEVEL 100 MEQ/L (98-107); CREATININE FOR GFR 0.84 MG/DL (0.55-1.02); GLOMERULAR FILTRATION RATE > 60.0 (>51); GLUCOSE, FASTING 152 MG/DL (70-105); POTASSIUM SERUM 4.2 MEQ/L (3.5-5.1); SODIUM LEVEL 139 MEQ/L (136-145)
[2017-02-11] MEDS ORDERED: LR 1,000 ML IV SCH (18:45)
[2017-02-11] MEDS ORDERED: fentaNYL 100 MCG/2 ML INJECTION (J3010) IV PRN (18:45)
[2017-02-11] MEDS ORDERED: MEPERIDINE INJ 25 MG/ML VIAL (J2175) IV PRN (18:45)
[2017-02-11 18:59] LABS: ABG BASE EXCESS 6.2 (-2.0-2.0); ABG DEVICE NASAL CANN; ABG HCO3 35.9 MEQ/L (22.0-26.0); ABG PARTIAL PRESSURE O2 79.7 mmHg (75.0-100.0); ABG TOTAL CO2 38.6 MEQ/L (22.0-29.0)
[2017-02-11 19:00] LABS: ABG PARTIAL PRESSURE CO2 87.1 mmHg (35.0-45.0); ABG pH (ARTERIAL) 7.233 UNITS (7.350-7.450)
[2017-02-11 19:28] VITALS: BP 104/53
--- NOTE | 2017-02-11 19:45 | REP ---
Portable chest x-ray: Single view: History: Status post wedge resection right lung. Comparison chest x-ray 02/06/2017. Pulmonary fibrosis. Findings: A right pleural drainage catheter is seen in place in the upper lung field. There is a tiny amount of right-sided pneumothorax along the lateral aspect of the upper lung field on the right. Advanced interstitial fibrosis pattern is again seen in the lungs. EKG electrodes are noted. An epidural catheter is evident. No new infiltrate. Impression: Right chest tube in good position. Tiny sliver of pneumothorax on the right. Signed by Rodger Quarles MD 02/12/2017 01:32 P
[2017-02-11 20:00] VITALS: BP 92/48
[2017-02-11] MEDS: LEVALBUTEROL 1.25 MG/0.5 ML CONCENTRATE NEB NEB SCH (20:02)
[2017-02-11] MEDS: KETOROLAC 30 MG/ML VIAL (J1885) IV SCH ×2 (20:12→23:32)
[2017-02-11 20:30] VITALS: BP 93/49
[2017-02-11 20:32] LABS: ABG BASE EXCESS 5.8 (-2.0-2.0); ABG HCO3 34.3 MEQ/L (22.0-26.0); ABG PARTIAL PRESSURE O2 69.3 mmHg (75.0-100.0); ABG STANDARD HCO3 29.6 MEQ/L (22.0-26.0); ABG TOTAL CO2 36.6 MEQ/L (22.0-29.0); ABG pH (ARTERIAL) 7.279 UNITS (7.350-7.450)
[2017-02-11 20:34] LABS: ABG PARTIAL PRESSURE CO2 74.8 mmHg (35.0-45.0)
[2017-02-11 21:00] VITALS: BP 86/50
[2017-02-11 21:30] VITALS: BP 97/54
[2017-02-11] MEDS: DOCUSATE SODIUM 100 MG CAP PO SCH (21:43)
[2017-02-11] MEDS: HEPARIN SOD (PORCINE) 5000 UNITS/ML VIAL SC SCH (21:43)
[2017-02-11 22:00] VITALS: BP 93/53
--- NOTE | 2017-02-11 22:03 | CCN ---
DATE: 02/11/2017 Finn is a patient of Dr. Matute who presented for an elective open lung biopsy for severe fibrotic interstitial lung disease. She has had progressive shortness of breath over the past six months. I was urgently consulted postoperatively for hypercarbic respiratory failure. Initial blood gas was 7.20 , pCO2 of 88 and pAO2 of 92. 45 minutes later still had pCO2 of 87 with a pH of 7.23. On my arrival to the intensive care unit (ICU), the patient was awake, conversant and could not remember her postoperative period. Does not remember the surgeon at her bedside. She states she now feels well, is breathing okay and oxygen saturations are 97% on 2 liters. She denies any excessive sleepiness, no chest discomfort. She states she has always had a cough which is productive of clear to yellow mucus. No hemoptysis. PHYSICAL EXAMINATION: Temperature is 96.7, pulse is 85, respiratory rate is 20, blood pressure is 103/55, oxygen saturation is 97% on 2 liters. GENERAL: She is awake, alert and oriented, able to complete full sentences without dyspnea. HEENT: Sclerae clear and anicteric. Pupils equal and reactive to light. Mucous membranes are moist without lesions. Tongue is midline. Mallampati four. Neck is supple. No tracheal deviation. LYMPH: No cervical, supraclavicular or axillary adenopathy. CARDIAC: Very difficult to hear over her prominent pulmonary sounds. Distant S1, S2 without audible murmur, rub or gallop. There is no systemic edema. No discernible elevated jugular venous pulse (JVP). PULMONARY: Diffusely abnormal exam with fibrotic rales, both anteriorly and posteriorly. No expiratory wheeze. No prolongation of the expiratory phase. No dullness to percussion. A thoracotomy scar is without erythema or exudate. No evidence of dehiscence. Chest tube is in place, tidaling well with positive air leak. ABDOMEN: Soft, nontender, nondistended. No discernible hepatosplenomegaly. No masses or hernia. EXTREMITIES: No cyanosis, clubbing or edema. SKIN: I do not palpate any skin nodules that would be consistent with sarcoid. No rashes. No jaundice or bruising. MUSCULOSKELETAL: Normal muscle tone without evidence of fracture or joint effusion. LABORATORY EVALUATION: Shows a repeat blood gas of 7.23, pCO2 of 87, pAO2 of 79. Chest CT reviewed from September shows some emphysematous changes, relative diffuse infiltrates throughout both lung borrego with fibrotic interstitial disease. I noticed that an ANCA panel was negative. Human immunodeficiency virus (HIV) has been tested and is negative. I do not see any AFB cultures; however, these may have been done at an outside facility. Rheumatoid factor was very high at 202. Sodium is 139, potassium 4.2, chloride is 100, bicarbonate of 34, BUN of 15, creatinine of 0.84 with a glucose of 152, white blood cell count is 5.6, hemoglobin of 10.4, hematocrit of 33.3 with a platelet count of 203, 87% neutrophilia. IMPRESSION: 1. Acute hypercarbic respiratory failure likely from general anesthesia. Will decrease her oxygen supply as it has been over an hour since she has been extubated and aim for an oxygen saturation in the low 90s. She is awake, alert and oriented showing no signs of CO2 narcosis at this point in time. Will continue to monitor for need for bilevel noninvasive therapy versus intubation. Will repeat arterial blood gas to ensure improvement in the hypercarbia given her normal mentation. 2. Severe fibrotic interstitial lung disease. Differential remains wide therefore biopsy was performed. I believe this could possibly be burnt out sarcoid. Differentials include nonspecific interstitial pneumonia (NSIP), diffuse interstitial pneumonitis (DIP) as she was a smoker. However, she did quit a year ago which would make this less likely. I do not believe she has lymphoid interstitial pneumonia (LIP). Appears to have very significant fibrotic changes for this being an NSIP. It could be an atypical presentation of idiopathic pulmonary fibrosis. However, I am most concerned about burnt out sarcoid. She has no extra pulmonary manifestations or extra pulmonary symptoms of sarcoid that I can ascertain at this point in time. Will wait for biopsy results to help guide treatment. At this point in time, she has no evidence of hypoxia. I do not believe steroids are warranted at this point in time. She has no wheeze. Will continue to monitor her respiratory status throughout her stay and she remains in the intensive care unit (ICU) due to her tenuous status. Critical care time as mentioned is one hour. This excludes all procedures. [facility]
[2017-02-12] VITALS (15 sets, daily range): BP systolic 89–114; BP diastolic 50–76; O2SAT 88
[2017-02-12] MEDS: LEVALBUTEROL 1.25 MG/0.5 ML CONCENTRATE NEB NEB SCH ×4 (01:03→19:57)
[2017-02-12 04:52] LABS: BASO % 0.2 % (0.0-1.0); EOS # 0.1 K/mm3 (0.0-0.50); EOS % 1.5 % (0.0-3.0); LARGE UNSTAINED CELL # 0.1 K/mm3 (0.0-0.4); LARGE UNSTAINED CELL % 1.3 % (0.0-4.0); LYMPH # 0.3 K/mm3 (1.5-4.5); LYMPH % 3.1 % (24.0-44.0); MEAN CORPUSCULAR HEMOGLOBIN 26.6 pg (27.0-33.0); MEAN CORPUSCULAR HGB CONC 30.3 g/dl (32.0-36.5); MEAN CORPUSCULAR VOLUME 87.8 fl (80.0-96.0); MONO # 0.2 K/mm3 (0.0-0.8); MONO % 3.1 % (0.0-5.0); NEUTROPHILS # 6.3 K/mm3 (1.8-7.7); NEUTROPHILS % 90.9 % (36.0-66.0); PLATELET COUNT, AUTOMATED 198 k/mm3 (150-450); RED CELL DISTRIBUTION WIDTH 16.6 % (11.5-14.5)
[2017-02-12 05:09] LABS: ANION GAP 3 MEQ/L (8-16); BLOOD UREA NITROGEN 19 MG/DL (7-18); CARBON DIOXIDE LEVEL 34 MEQ/L (21-32); CHLORIDE LEVEL 101 MEQ/L (98-107); CREATININE FOR GFR 1.15 MG/DL (0.55-1.02); GLOMERULAR FILTRATION RATE > 60.0 (>51); GLUCOSE, FASTING 156 MG/DL (70-105); POTASSIUM SERUM 4.8 MEQ/L (3.5-5.1); SODIUM LEVEL 138 MEQ/L (136-145)
[2017-02-12 05:37] LABS: ABG BASE EXCESS 2.7 (-2.0-2.0); ABG HCO3 32.1 MEQ/L (22.0-26.0); ABG PARTIAL PRESSURE O2 91.2 mmHg (75.0-100.0); ABG STANDARD HCO3 26.9 MEQ/L (22.0-26.0); ABG TOTAL CO2 34.7 MEQ/L (22.0-29.0)
[2017-02-12 05:39] LABS: ABG PARTIAL PRESSURE CO2 82.2 mmHg (35.0-45.0)
[2017-02-12] MEDS: KETOROLAC 30 MG/ML VIAL (J1885) IV SCH ×4 (06:05→23:47)
[2017-02-12] MEDS: KCL 20MEQ IN D5/NS 1000ML 1,000 ML IV SCH ×2 (06:05→19:59)
--- NOTE | 2017-02-12 06:37 | RO ---
DATE OF PROCEDURE: 02/11/2017 PREPROCEDURE DIAGNOSIS: Pulmonary fibrosis. POSTPROCEDURE DIAGNOSIS: Pulmonary fibrosis. PROCEDURE: Wedge resection via thoracotomy right lower lobe and bronchoscopy, five level rib block SURGEON: Dr. Micky Crockett. INSIDE SALES ACCOUNT REPRESENTATIVE: ANESTHESIA: ESTIMATED BLOOD LOSS: FINDINGS: The lung was very noncompliant and very stiff. It was so stiff that it was difficult to get a Archer clamp or any type of grasping clamp on the lung. While it was not rock solid, it was very, very, very noncompliant. I did not think that I could do it thoracoscopically and therefore I made a small formal incision and undertook a thoracotomy. Even with that, it is difficult to grasp the lung and take a wedge. Nonetheless, it was accomplished. I could not easily free up any pulmonary edge either on the diaphragm or in the fissure as it was all very densely adhesed. PROCEDURE: Under satisfactory general anesthesia and single lumen endotracheal intubation, the bronchoscope was placed down the tracheobronchial tree via the endotracheal tube. There were no endobronchial lesions seen. There were emphysematous pits noted. There was a moderate amount of secretions noted additionally. She had very small airways much smaller than I would have expected. The patient was then prepped and draped in the usual sterile fashion and a 5 mm port was placed. Inspection showed a number of adhesions but basically the lung was very, very noncompliant. I tried numerous times to grasp the lung and without avail, and therefore I decided to undertake a formal thoracotomy. An incision was made and the latissimus dorsi was divided. The incision measured approximately 6 cm. It was more kin to a video-assisted thoracoscopic surgery (VATS) utility incision. The lung was finally seized after digitally freeing it up. A small piece was obtained in a Mitesh clamp. To our separate incision, a Lookout stapler was placed and a small piece of left lower lobe was wedged out. This was sent for permanent pathological examination. A right angle chest tube was placed posteriorly. Five level rib block was undertaken with Exparel and Marcaine. While the ribs were not spread, they were re-approximated by use of a #2 Prolene [id number] sutures. The extrathoracic muscles were re-approximated with use of #0 Vicryl suture, the subcutaneous tissue by use of #3-0 Vicryl suture and the skin by use of #3-0 Monocryl subcuticular suture. The patient tolerated the procedure well and left the operating room in satisfactory condition for the recovery room. ANGELINE
[2017-02-12] MEDS ORDERED: PRED20TA PO (07:23)
--- NOTE | 2017-02-12 08:20 | REP ---
Clinical: Status post wedge resection right lung. Technique: PA and lateral. Comparison: 02/11/2017. Findings: Right apical chest tube in stable position. Diffuse bilateral pleuroparenchymal changes are stable. Visualized portions of the cardiac silhouette are within normal limits. Skeletal structures are intact. Impression: Stable acute/chronic pleuroparenchymal changes. Signed by Geo Villanueva MD 02/12/2017 08:12 A
[2017-02-12] MEDS: MOM 30ML SUSPENSION UDC PO SCH (08:33)
[2017-02-12] MEDS: DOCUSATE SODIUM 100 MG CAP PO SCH ×2 (08:33→20:31)
[2017-02-12] MEDS: predniSONE 20 MG TAB PO SCH ×2 (08:34→20:31)
[2017-02-12] MEDS: HEPARIN SOD (PORCINE) 5000 UNITS/ML VIAL SC SCH ×2 (08:34→20:31)
[2017-02-12] MEDS ORDERED: WALLBOXKEY XX PRN (09:00)
[2017-02-12] MEDS ORDERED: EPIDURAL/PCA KEYS XX PRN (09:00)
[2017-02-12] MEDS: PANTOPRAZOLE 40MG INJ (PROTONIX) (C9113) IV SCH (09:00)
[2017-02-12] MEDS ORDERED: METOCLOPRAMIDE INJ 10MG/2ML VIAL (J2765) IV PRN (09:00)
[2017-02-12] MEDS ORDERED: diphenhydrAMINE INJ 50MG/ML VIAL (J1200) IV PRN (09:00)
[2017-02-12] MEDS ORDERED: PANTOPRAZOLE 40MG TAB (PROTONIX) PO SCH (09:00)
[2017-02-12] MEDS ORDERED: ONDANSETRON 4MG/2ML VIAL (J2405) IV PRN (09:00)
[2017-02-12] MEDS ORDERED: NALOXONE INJ 0.4 MG/1 ML VIAL (J2310) IV PRN (09:00)
--- NOTE | 2017-02-12 09:14 | CCN ---
DATE: 02/12/2017 I was called to the patient's bedside for increased drowsiness. The patient was ambulating today; however, she has had increased drowsiness, barely able to keep her eyes open during conversation with me today, although she is sitting at bedside. She remains hypercarbic with a pCO2 of 82 and pH of 7.21. I discussed initiation of bilevel noninvasive therapy. The patient is in agreement. I will start with a low PEEP as has issues of fresh postoperative open lung biopsy and therefore I would like to promote healing. She has had minimal increase in her creatinine. Very good control of pain and actually I believe there is plans to decrease fentanyl due to her level of sedation. PHYSICAL EXAMINATION: Temperature is 98.3, pulse is 84, respiratory rate is 16, blood pressure is 106/55 with a mean arterial pressure of 72, and oxygen saturation 96% on 2 liters. Ins and Outs: 1122 in and 500 out, positive 622. General: Awake, however, sleepy with drooping eyes. She is able to complete full sentences, but is clearly more sedated than yesterday. HEENT: Sclerae clear and anicteric. Pupils equal, react to light. Mucous membranes are moist without lesions. Tongue is midline. Neck: Supple. No tracheal deviation. Lymphs: No cervical, supraclavicular or axillary adenopathy. Cardiac: Difficult to hear cardiac sounds over her prominent pulmonary sounds. She has a distant S1, S2 without audible murmur, rub or gallop. No elevated jugular venous pulse (JVP). No systemic edema. Pulmonary: Diffusely abnormal exam with fibrotic rales both anteriorly and posteriorly. There is no expiratory wheeze. No prolongation of expiratory phase. No dullness to percussion. Thoracotomy scar without erythema or exudate. No evidence of dehiscence. Chest tube is in place tidaling well. Abdomen: Soft, nontender, nondistended. No hepatosplenomegaly. No masses or hernia. Extremities: No cyanosis, clubbing or edema. Skin: No rashes, jaundice or bruising. Musculoskeletal: Normal muscle tone without evidence of fracture or joint effusion. Neurologic: Decreased arousal awareness as mentioned above. No evidence of tremor or seizure activity. LABORATORY EVALUATION: Shows a white blood cell count of 7.0, hemoglobin 9.3, hematocrit of 30.8, platelet count of 198, with 91% neutrophilia. Sodium is 138, potassium 4.8, chloride 101, bicarb 34, BUN 14, creatinine 1.15. Arterial blood gas shows a pH of 7.21, pCO2 of 82, pAO2 of 91. Calcium is 8.0. IMPRESSION: 1. Acute hypercarbic respiratory failure. Will initiate bilevel therapy this morning. Will check a blood gas approximately 1 hour after initiating therapy to ensure improvement. Will closely monitor mental status and arousal. At this point in time, will make n.p.o. to avoid aspiration. 2. Renal insufficiency, mild at this point in time. I do not believe she needs to discontinue Toradol, especially due to the fact that we will likely be decreasing her narcotic therapy. Will continue to monitor renal function and ensure adequate urine output. Critical care time was 54 minutes, this excludes all procedures.
[2017-02-12] MEDS: BUPIVACAINE/NACL BAG 250 ML EPIDURAL SCH (09:28)
[2017-02-12 10:43] LABS: ABG BASE EXCESS 2.4 (-2.0-2.0); ABG HCO3 31.7 MEQ/L (22.0-26.0); ABG PARTIAL PRESSURE O2 74.2 mmHg (75.0-100.0); ABG STANDARD HCO3 26.5 MEQ/L (22.0-26.0); ABG TOTAL CO2 34.2 MEQ/L (22.0-29.0)
[2017-02-12 10:46] LABS: ABG PARTIAL PRESSURE CO2 80.8 mmHg (35.0-45.0); ABG pH (ARTERIAL) 7.212 UNITS (7.350-7.450)
[2017-02-12] MEDS ORDERED: NALOXONE INJ 0.4 MG/1 ML VIAL (J2310) IV STA ×3 (10:54→18:09)
--- NOTE | 2017-02-12 12:24 | RO ---
DATE OF PROCEDURE: 02/12/2017 PREPROCEDURE DIAGNOSIS: Right IJ catheter. POSTPROCEDURE DIAGNOSIS: REASON FOR PLACEMENT: Lack of IV access, recent postoperative respiratory failure and pulmonary hypertension. POSTPROCEDURE DIAGNOSIS: Right IJ catheter. PROCEDURALIST: Juliano Foster DO AD SETTER: None. ANESTHESIA: 1% lidocaine 10 mL administered subcutaneously. PROCEDURE: After informed consent was reviewed with the patient, the patient was placed in the supine position. The right IJ was prepped and draped in full sterile barrier precautions with chlorhexidine. The right IJ was identified under ultrasound. Prior to procedure, a time-out was performed with two patient identifiers identifying correct site, correct procedure. The skin was then anesthetized with 1% lidocaine over the right IJ. The Yeni syringe was then introduced into the IJ on the first pass with return of venous blood flow. Wire was fed through the needle and needle was removed. The triple-lumen catheter was placed via modified Seldinger technique and a wire was removed. All three ports returned venous blood flow and flushed easily. Sterile impregnated dressing was applied over the site after this was sutured in a 15 cm. Postprocedure chest x-ray is pending. There were no observed complications.
[2017-02-12 13:19] LABS: ABG BASE EXCESS 3.5 (-2.0-2.0); ABG HCO3 32.8 MEQ/L (22.0-26.0); ABG PARTIAL PRESSURE O2 64.2 mmHg (75.0-100.0); ABG STANDARD HCO3 27.4 MEQ/L (22.0-26.0); ABG TOTAL CO2 35.3 MEQ/L (22.0-29.0)
[2017-02-12 13:23] LABS: ABG PARTIAL PRESSURE CO2 80.8 mmHg (35.0-45.0); ABG pH (ARTERIAL) 7.226 UNITS (7.350-7.450)
--- NOTE | 2017-02-12 14:38 | IPN ---
DATE: 02/12/2017 She is now postop day 1 status post a right lower lobe wedge resection. Final pathology is still pending. Yesterday she was retaining CO2 into the 80s and while somnolent was wakable. Today she is still groggy and somnolent but can carry on a conversation. She is still retaining CO2. She has very bad underlying fibrosis. Her pain is being fairly well controlled. I have turned down her epidural from 8 to 6 of fentanyl. Her vital signs show a T-max of 98.5 with a heart rate that ranges between 84 and 90 and is sinus rhythm and respiratory rate of 18 to 16 without the use of accessory muscles, who is 95-96% saturated on 2 liters nasal cannula. Blood pressure is ranging between 102/53 to 109/58. Her intake and output the past 24 hours has been recorded as 1122 in and 500 out for a positivity 622 mL. She has put out 10 mL from the chest tube and there is no air leak. Weight today is 88.4 kg compared to 84.0 kg yesterday. On physical examination, she has diffuse rales and crackles consistent with her pulmonary fibrosis on both sides. Breath sounds are equal however on either side. Percussion note is full to the diaphragm. Cardiac exam is without murmurs, clicks, gallops or rubs. I cannot feel her PMI. S1 and S2 are normal. Abdomen is soft, nontender. Bowel sounds are positive. She is however, tympanitic and distended. There is no CVA tenderness. No hepatomegaly. Extremities show no pretibial edema. No calf tenderness. No differential swelling of the upper extremities. Skin is warm, dry and perfused without cyanosis or mottling including that of the nail beds and the knees Neck is supple. There is no jugular venous distention. No subcutaneous emphysema. Trachea is midline. Mouth shows her mucous membranes to be pink and moist. Lips and commissures without lesions. There is no thrush. Eyes show her pupils to be equal and reactive. Extraocular motors intact. Sclera nonicteric. Neuro shows II through XII intact along with gross motor and gross sensation intact. Gait is not tested. Psychiatric shows her to be awake and alert, oriented times three with appropriate mood and affect, and conversational. She is rather somnolent however. Her white count today is 7.0 with a hemoglobin and hematocrit of 9.3 and 30.8 and platelet count of 198. Differential shows 90% neutrophils, 3% lymphocytes, and 3% monocytes. There are no immature forms or toxic granulations. Electrolytes are normal with a marginally high total CO2 of 34. BUN and creatinine is 19 and 1.15. I will continue her on Toradol. Glucose is 156, calcium 8.0. Her blood gases this morning show a pH of 7.21 with a pCO2 of 80 and a base excess of 2.4. This looks to be almost a pure respiratory acidosis. Her pO2 is 74 on the 2 liters nasal cannula. Her chest x-ray today shows her lung fully expanded to the chest wall. She has the underlying fibrotic changes. There does look to be a small separation of the lung at the cupula on the right side. Chest tube is in good place. Costophrenic angles are sharp. Essentially her chest x-ray is unchanged from her preoperative x-ray. IMPRESSION: 1. Pulmonary fibrosis, unknown cause. Final pathology pending. 2. Postop day 1 status post thoracoscopic wedge resection, right upper lobe. 3. Hypoxia. 4. Gastroesophageal reflux disease (GERD). PLAN AND DISCUSSION: As noted above, I am reducing her epidural fentanyl from 8 to 6. I will ask anesthesia to consider replacing with bupivacaine. Her pain is being fairly well controlled. I think that she is somnolent from the narcotic infusion. I have also asked Dr. Foster to see her in consultation. She may or may not decide to place her on BiPAP. She was not on BiPAP last night and in fact I had Dr. Foster actually see her last night and we decided not to place her on BiPAP.
--- NOTE | 2017-02-12 15:04 | REP ---
Portable chest x-ray: Single sitting AP view. History: Central line placement. Comparison study February 12, 2017. 08:03 a.m. film. Findings: A right chest tube remains in place. A tiny amount of apical pleural air is again seen decreased in size from the earlier film. Right internal jugular line terminates in the region of the right atrial SVC junction. An epidural catheter is noted overlying the left chest and spine. EKG electrodes are seen. Advanced diffuse interstitial lung changes persist as before. Signed by Rodger Quarles MD 02/12/2017 04:31 P
[2017-02-12 17:15] LABS: ABG BASE EXCESS 3.3 (-2.0-2.0); ABG HCO3 34.3 MEQ/L (22.0-26.0); ABG PARTIAL PRESSURE O2 74.7 mmHg (75.0-100.0); ABG STANDARD HCO3 27.2 MEQ/L (22.0-26.0); ABG TOTAL CO2 36.9 MEQ/L (22.0-29.0)
[2017-02-12 17:26] LABS: ABG PARTIAL PRESSURE CO2 86.1 mmHg (35.0-45.0); ABG pH (ARTERIAL) 7.218 UNITS (7.350-7.450)
[2017-02-12] MEDS ORDERED: FUROSEMIDE 40 MG/4 ML VIAL (J1940) IV ONE (18:30)
[2017-02-12 21:53] LABS: ABG BASE EXCESS 5.8 (-2.0-2.0); ABG HCO3 34.2 MEQ/L (22.0-26.0); ABG PARTIAL PRESSURE O2 58.5 mmHg (75.0-100.0); ABG STANDARD HCO3 29.6 MEQ/L (22.0-26.0); ABG TOTAL CO2 36.6 MEQ/L (22.0-29.0); ABG pH (ARTERIAL) 7.274 UNITS (7.350-7.450)
[2017-02-12 21:54] LABS: ABG PARTIAL PRESSURE CO2 75.6 mmHg (35.0-45.0)
--- NOTE | 2017-02-12 21:57 | CCN ---
DATE: 02/12/2017 This is an additional critical care, one hour, excluding procedures. This is in addition to the 54 minutes that was already performed this morning. I was called to the patient's bedside. Blood gas is not improving despite bilevel noninvasive therapy. Tidal volumes are ranging high 200s to mid 300s. I increased the inspiratory pressure to 24 without any significant improvement in the tidal volumes. The patient remains sedated but arousable to voice. I gave additional Narcan at the bedside along with placing a nasal trumpet to see if this improves. We will check a blood gas in two hours. I did discuss this with her primary surgeon, Dr. Crockett. At this point in time, he believes it is best if we hold off on mechanical ventilation and attempt further bilevel with the nasal trumpet, however, close monitoring for respiratory failure. I was at the patient's bedside for another hour assessing her respiratory status and adjusting mechanical ventilation.
[2017-02-13] VITALS (13 sets, daily range): BP systolic 92–139; BP diastolic 56–70; O2SAT 94
[2017-02-13] MEDS: LEVALBUTEROL 1.25 MG/0.5 ML CONCENTRATE NEB NEB SCH ×4 (02:42→19:59)
[2017-02-13 04:42] LABS: EOS % 0.3 % (0.0-3.0); LARGE UNSTAINED CELL % 0.6 % (0.0-4.0); LYMPH # 0.3 K/mm3 (1.5-4.5); LYMPH % 3.5 % (24.0-44.0); MEAN CORPUSCULAR HEMOGLOBIN 26.3 pg (27.0-33.0); MEAN CORPUSCULAR HGB CONC 30.3 g/dl (32.0-36.5); MEAN CORPUSCULAR VOLUME 86.9 fl (80.0-96.0); MONO # 0.2 K/mm3 (0.0-0.8); MONO % 2.5 % (0.0-5.0); NEUTROPHILS # 5.9 K/mm3 (1.8-7.7); PLATELET COUNT, AUTOMATED 169 k/mm3 (150-450); RED CELL DISTRIBUTION WIDTH 16.4 % (11.5-14.5); WHITE BLOOD COUNT 6.3 K/mm3 (4.0-10.0)
[2017-02-13 05:04] LABS: ANION GAP 2 MEQ/L (8-16); BLOOD UREA NITROGEN 19 MG/DL (7-18); CARBON DIOXIDE LEVEL 35 MEQ/L (21-32); CHLORIDE LEVEL 101 MEQ/L (98-107); CREATININE FOR GFR 1.02 MG/DL (0.55-1.02); GLOMERULAR FILTRATION RATE > 60.0 (>51); GLUCOSE, FASTING 164 MG/DL (70-105); SODIUM LEVEL 138 MEQ/L (136-145)
[2017-02-13] MEDS: KETOROLAC 30 MG/ML VIAL (J1885) IV SCH ×3 (05:27→18:29)
[2017-02-13 08:56] LABS: ABG BASE EXCESS 6.4 (-2.0-2.0); ABG HCO3 33.9 MEQ/L (22.0-26.0); ABG PARTIAL PRESSURE O2 80.1 mmHg (75.0-100.0); ABG STANDARD HCO3 30.3 MEQ/L (22.0-26.0); ABG pH (ARTERIAL) 7.322 UNITS (7.350-7.450)
--- NOTE | 2017-02-13 09:35 | REP ---
Chest x-ray: Two views. History: Status post wedge resection right lung. Comparison study: February 12, 2017. Findings: A right chest tube remains in place. There is a small amount of extrathoracic soft tissue air visible near the chest tube insertion site. There is right pleural thickening and several tiny bubbles of right-sided pleural air persist consistent with a small right-sided pneumothorax. Diffuse interstitial lung disease persists unchanged. Epidural catheter is again noted. A right internal jugular central venous line is seen in place unchanged. EKG electrodes are noted. Impression: Stable findings. Signed by Rodger Quarles MD 02/13/2017 10:19 A
[2017-02-13] MEDS: predniSONE 20 MG TAB PO SCH ×2 (09:40→20:49)
[2017-02-13] MEDS: KCL 20MEQ IN D5/NS 1000ML 1,000 ML IV SCH (09:40)
[2017-02-13] MEDS: MOM 30ML SUSPENSION UDC PO SCH (09:41)
[2017-02-13] MEDS: DOCUSATE SODIUM 100 MG CAP PO SCH ×2 (09:41→20:49)
[2017-02-13] MEDS: HEPARIN SOD (PORCINE) 5000 UNITS/ML VIAL SC SCH ×2 (09:41→20:50)
[2017-02-13] MEDS: PANTOPRAZOLE 40MG INJ (PROTONIX) (C9113) IV SCH (09:41)
[2017-02-13] MEDS: BUPIVACAINE/NACL BAG 250 ML EPIDURAL SCH (09:59)
--- NOTE | 2017-02-13 14:14 | IPN ---
DATE: 02/13/2017 This is now the third postoperative day for Mrs. Perales. There has been a difference in night and day in her mental status. She is now up and about, sitting in a chair and able to walk, and conversing freely. Her blood gases are improving. Her vital signs show a T-max of 98.3 with a heart rate that ranges between 93 and 84 in sinus rhythm, a respiratory rate of 28 to 20 without the use of accessory muscles, now on 3 liters nasal cannula. She sis 93% saturated to 100% saturated on 3 liters nasal cannula. Her blood pressure is ranging between 121/62 to 126/70. Her intake and output the past 24 hours has been recorded as 2385 in and 1410 out for a positivity of a liter. She has put out 190 mL from the chest tube yesterday and 10 mL in the last 10 hours. Her weight is 88.6 kg compared to 88.4 kg yesterday. PHYSICAL EXAMINATION: She has bilateral crackles and rales, more high pitched and Velcro like in both sides. Percussion is full to the diaphragm. Cardiac exam is without murmurs, clicks, gallops or rubs. I cannot feel her point of maximum impulse (PMI). S1, S2 are normal. Abdomen is soft, nontender. Bowel sounds are positive. She is not as tympanitic and distended today. There is no costovertebral angle (CVA) tenderness. Extremities show no pretibial edema. No calf tenderness. No differential swelling of the upper extremities. Skin is warm, dry and perfused without cyanosis or mottling, including that of the nail beds and knees. Neck is supple. There is no jugular venous distention. No subcutaneous emphysema. Trachea is midline. Mouth shows moist mucous membranes to be pink and moist. Lips and commissures are without lesions. There is no thrush. Eyes show her pupils to be equal and reactive. Extraocular movements are intact. Sclerae nonicteric. Neurologic shows II-XII intact along with gross motor and gross sensation intact. Gait is also intact. Psychiatric shows her to be awake, alert, oriented times three with appropriate mood and affect and conversational. Her white count today is 6.3 with a hemoglobin and hematocrit of 9.2 and 30.3 and a platelet count is 169. Differential shows 93% neutrophils, 3% lymphocytes, and 2% monocytes. There are no immature forms and no toxic granulations. Her electrolytes are essentially normal except for a mildly elevated total CO2 of 35. BUN and creatinine is 19 and 0.02 which continues to improve. Glucose is 164 with a calcium of 8.0. She remains on Toradol. Her blood gases this morning show a pH 7.32, PCO2 of 67 and a PO2 of 80 with a base excess of 66.4. She normally runs in the mid 50s with regard to her CO2, but she is certainly improving. Her chest x-ray today shows the lung fully expanded to the chest wall. There is some diaphragmatic tenting. It is essentially unchanged from a preoperative x-ray with regard to her pulmonary fibrosis and infiltrative processes. Lateral chest x-ray does not show any new processes. IMPRESSION: 1. Postoperative day #3 status post wedge resection right lower lobe final pathology pending. 2. Hypoxia, improving. 3. Hypercarbia, improving. 4. Gastroesophageal reflux disease. PLAN AND DISCUSSION: I will discontinue her epidural today along with her Coker catheter. We will also discontinue her chest tube. I will plan to send her home tomorrow. She is now able to oxygenate and ventilate off BiPAP and we will discontinue that.
[2017-02-14] VITALS: BP 119/66
[2017-02-14] MEDS: KETOROLAC 30 MG/ML VIAL (J1885) IV SCH ×4 (00:10→16:52)
[2017-02-14] MEDS: LEVALBUTEROL 1.25 MG/0.5 ML CONCENTRATE NEB NEB SCH ×3 (02:17→13:24)
[2017-02-14 04:00] VITALS: BP 139/70
[2017-02-14 05:52] LABS: ANION GAP 3 MEQ/L (8-16); BASO % 0.1 % (0.0-1.0); BLOOD UREA NITROGEN 24 MG/DL (7-18); CALCIUM LEVEL 8.3 MG/DL (8.5-10.1); CARBON DIOXIDE LEVEL 35 MEQ/L (21-32); CHLORIDE LEVEL 102 MEQ/L (98-107); CREATININE FOR GFR 0.88 MG/DL (0.55-1.02); EOS % 0.3 % (0.0-3.0); GLOMERULAR FILTRATION RATE > 60.0 (>51); GLUCOSE, FASTING 155 MG/DL (70-105); LARGE UNSTAINED CELL # 0.1 K/mm3 (0.0-0.4); LARGE UNSTAINED CELL % 1.2 % (0.0-4.0); LYMPH # 0.2 K/mm3 (1.5-4.5); LYMPH % 3.8 % (24.0-44.0); MEAN CORPUSCULAR HEMOGLOBIN 26.8 pg (27.0-33.0); MEAN CORPUSCULAR HGB CONC 30.4 g/dl (32.0-36.5); MEAN CORPUSCULAR VOLUME 88.1 fl (80.0-96.0); MONO # 0.2 K/mm3 (0.0-0.8); MONO % 4.6 % (0.0-5.0); NEUTROPHILS # 4.3 K/mm3 (1.8-7.7); NEUTROPHILS % 90.2 % (36.0-66.0); PLATELET COUNT, AUTOMATED 192 k/mm3 (150-450); POTASSIUM SERUM 4.7 MEQ/L (3.5-5.1); RED CELL DISTRIBUTION WIDTH 16.4 % (11.5-14.5); SODIUM LEVEL 140 MEQ/L (136-145); WHITE BLOOD COUNT 4.7 K/mm3 (4.0-10.0)
[2017-02-14] MEDS: HEPARIN SOD (PORCINE) 5000 UNITS/ML VIAL SC SCH (07:59)
[2017-02-14] MEDS: DOCUSATE SODIUM 100 MG CAP PO SCH (07:59)
[2017-02-14] MEDS: MOM 30ML SUSPENSION UDC PO SCH (07:59)
[2017-02-14] MEDS: predniSONE 20 MG TAB PO SCH (07:59)
[2017-02-14 08:00] VITALS: BP 132/70
[2017-02-14] MEDS: NORCO, ANEXSIA 5/325MG TABLET (HYDROcodone/ACETAMINOPHEN) PO PRN ×2 (08:00→12:35)
--- NOTE | 2017-02-14 09:20 | REP ---
Chest x-ray: Two views. History: Status post wedge resection right lung. Comparison study February 13, 2017. Findings: EKG monitoring electrodes are seen. The right pleural drainage tube has been withdrawn. The right internal jugular line persists with its tip in the expected location of the superior vena cava. The epidural catheter is no longer visible. There is some persistent pleural thickening. No visible pneumothorax. Diffuse interstitial lung disease is again noted. No acute infiltrate is seen. Signed by Rodger Quarles MD 02/14/2017 09:37 A
[2017-02-14] MEDS ORDERED: NORCOTAB PO (11:02)
--- NOTE | 2017-02-14 20:44 | DSES ---
DATE OF ADMISSION: 02/11/2017 DATE OF DISCHARGE: 02/14/2017 DISCHARGE DIAGNOSES: 1. Pulmonary fibrosis, final pathology pending. 2. Hypoxia. 3. Hypercarbia. 4. Gastroesophageal reflux disease. 5. Narcotic hypercarbic respiratory failure. HOSPITAL COURSE: The patient is a 56-year-old black female who has pulmonary fibrosis with honeycombing of the upper lobes with multiple ground glass lesions in the lower lobes. She is becoming more progressively hypoxic and a lung biopsy was undertaken to provide more insight into the diagnostic possibilities. There is a possibility this could represent rheumatoid disease. Certainly the upper lobe is burned out with honeycombing. The patient was, therefore, taken to the operating room for wedge resection of the lower lobe. Findings at the time of operation showed the lung to be very noncompliant and have the consistency of hard rubber. A wedge was obtained and final pathology is still pending. The patient's postoperative course was notable for probable narcotic somnolence secondary to the epidural. The epidural was changed from Fentanyl to bupivacaine and weaned, and her mental status returned to normal. She was placed on bilevel positive airway pressure (BiPAP) for 24 hours to support her. The patient's chest tubes were removed on the third postoperative day. The patient is being discharged today on her home medications, which include albuterol two puffs every 6 hours as needed for shortness of breath, ibuprofen 400 mg every 6 hours as needed for pain, Prilosec 20 mg daily, prednisone 20 mg twice a day and [place] 5/325 every 4 hours as needed for pain. The patient will return to see me in 1 week in postoperative surgical followup. Her discharge hemoglobin and hematocrit are 8.3 and 27.2, which is probably secondary to hemodilution. Platelet count is 192. Electrolytes are normal with a BUN and creatinine of 24 and 0.88. Her discharge chest x-ray shows her lung fully expanded to the chest wall. It is essentially unchanged from her preoperative chest x-ray with the pulmonary fibrotic appearance. Costophrenic angles are sharp.
== END 2017-02-14 17:57 | disposition home or self-care (01) | DRG 121 ==
LOC: M OR 02-11 10:48 → M ICU 02-11 19:33 → M ED INP 02-12 08:52 → M ICU 02-12 09:03
PROVIDERS: ADMIT Thoracic Surgery (Cardiothoracic Vascular Surgery); ATTEND Thoracic Surgery (Cardiothoracic Vascular Surgery)
PROC: 0BBF0ZX Excision of Right Lower Lung Lobe, Open Approach, Diagnostic (ICD-10-PCS; principal; 2017-02-11 12:00)
PROC: 02HV33Z Insertion of Infusion Device into Superior Vena Cava, Percutaneous Approach (ICD-10-PCS; 2017-02-12)
DX: J84.10 Pulmonary fibrosis, unspecified (principal); J96.02 Acute respiratory failure with hypercapnia; J93.82 Other air leak; K21.9 Gastro-esophageal reflux disease without esophagitis; T41.0X5A Adverse effect of inhaled anesthetics, initial encounter; Z79.899 Other long term (current) drug therapy

== ENCOUNTER → 2017-02-06 | Outpatient (CLI) | payer OTHER, SELFPAY ==
[~2017-02-06] MED LIST changes: +NORCOTAB PO
[2017-02-06 12:19] LABS: ABG BASE EXCESS 4.5 (-2.0-2.0); ABG HCO3 30.2 MEQ/L (22.0-26.0); ABG PARTIAL PRESSURE CO2 50.4 mmHg (35.0-45.0); ABG PARTIAL PRESSURE O2 64.4 mmHg (75.0-100.0); ABG STANDARD HCO3 28.4 MEQ/L (22.0-26.0); ABG TOTAL CO2 31.8 MEQ/L (22.0-29.0); ABG pH (ARTERIAL) 7.396 UNITS (7.350-7.450)
[2017-02-06 12:53] LABS: MEAN CORPUSCULAR HEMOGLOBIN 27.3 pg (27.0-33.0); MEAN CORPUSCULAR HGB CONC 31.8 g/dl (32.0-36.5); MEAN CORPUSCULAR VOLUME 85.9 fl (80.0-96.0); WHITE BLOOD COUNT 3.9 K/mm3 (4.0-10.0)
[2017-02-06 12:56] LABS: INR 0.98
[2017-02-06 13:09] LABS: ANION GAP 4 MEQ/L (8-16); BLOOD UREA NITROGEN 13 MG/DL (7-18); CARBON DIOXIDE LEVEL 36 MEQ/L (21-32); CHLORIDE LEVEL 100 MEQ/L (98-107); CREATININE FOR GFR 0.72 MG/DL (0.55-1.02); GLOMERULAR FILTRATION RATE > 60.0 (>51); GLUCOSE, FASTING 89 MG/DL (70-105); POTASSIUM SERUM 4.1 MEQ/L (3.5-5.1); SODIUM LEVEL 140 MEQ/L (136-145)
--- NOTE | 2017-02-06 20:56 | ECGEPIP ---
Stationary ECG Study [facility] Test Date: 2017-02-06 Pat Name: JANENE FERNANDEZ Department: Room: - Gender: F Acid Bath Mixer: : 1960 Requested By: Micky Vitale Order Number: [id number] Reading MD: Juan Delgado Measurements Intervals [place] Rate: 109 P: 61 [place]: 117 QRS: 68 QRSD: 82 T: 46 QT: 313 QTc: 423 Interpretive Statements SINUS TACHYCARDIA WITH SHORT [place] INTERVAL ABNORMAL RHYTHM ECG Electronically Signed On 02-06-2017 20:55:40 EDT by Juan Delgado
--- NOTE | 2017-02-07 02:01 | REP ---
Clinical: Preoperative assessment. Pulmonary fibrosis. Technique: PA and lateral. Yuriy: 11/12/2016. Findings: Advanced fibrosis and interstitial changes noted throughout the bilateral lung borrego. Previously noted acute infiltrates appear to have improved / resolved. Subtle residual alveolar infiltrates cannot be excluded. No effusion. No pneumothorax. Mediastinum is within normal limits and stable. Skeletal structures are intact. Impression: Diffuse chronic interstitial changes and fibrosis. Improved aeration compared to prior examination. However subtle residual alveolar infiltrates cannot be excluded. Signed by Geo Villanueva MD 02/07/2017 01:52 A
== END ==
LOC: M ADMPAT 10:44
PROVIDERS: ATTEND Thoracic Surgery (Cardiothoracic Vascular Surgery)
DX: Z01.818 Encounter for other preprocedural examination (principal); J84.10 Pulmonary fibrosis, unspecified; R00.0 Tachycardia, unspecified; R94.31 Abnormal electrocardiogram [ECG] [EKG]

== ENCOUNTER → 2017-02-24 | Outpatient (CLI) | payer OTHER ==
--- NOTE | 2017-02-25 00:47 | REP ---
Clinical: Pulmonary fibrosis. Technique: PA and lateral. Comparison: 02/14/2017, 09/27/2016. Findings: Diffuse chronic interstitial changes noted and compatible with pulmonary fibrosis. Superimposed right lower lobe infiltrate and pleural reaction cannot be excluded. No pneumothorax. The cardiac silhouette is within normal limits. The skeletal structures are intact. Impression: 1. Advanced pulmonary fibrosis similar to prior examination. 2. Superimposed acute right basilar process and right pleural effusion/reaction cannot be excluded. If the patient remains symptomatic consider chest CT for further investigation. Signed by Geo Villanueva MD 02/25/2017 12:38 A
== END ==
LOC: M SMT 11:00
PROVIDERS: ATTEND Thoracic Surgery (Cardiothoracic Vascular Surgery)
DX: J84.10 Pulmonary fibrosis, unspecified (principal)

== ENCOUNTER → 2017-03-07 | Outpatient (CLI) | payer OTHER ==
[~2017-03-07] MED LIST changes: +ALEN70TA39 PO; +BENZ200C53 PO; +DOXY100T2 PO; -DOXY10CA PO; +FURO40TA2 PO; -PRED10TA PO; +PRED10TA2 PO; -PROA1AER INH; +PROAAER10 INH
--- NOTE | 2017-03-07 14:45 | REPMRS ---
Patient History The patient states she has not had a clinical breast exam in over a year. Patient is postmenopausal. No known family history of cancer. [facility] Woman Screen Mammo: March 07, 2017 - Exam #: [id number] Bilateral CC and MLO view(s) were taken. Technologist: Eliz Gabriel, Technologist No prior studies available for comparison. FINDINGS: There are scattered fibroglandular densities. There is no evidence of dominant mass, architectural distortion, or clustered microcalcification typical of malignancy. ASSESSMENT: BI-RADS/ACR category 1 mammogram. Negative. Recommendation Routine screening mammogram of both breasts in 1 year (for women over age 40). This mammogram was interpreted with the aid of an FDA-approved computer-aided dectection system. Electronically Signed By: Hu Quarles MD 03/07/17 1444 MTDD
== END ==
LOC: M WHC 10:42
DX: Z12.31 Encounter for screening mammogram for malignant neoplasm of breast (principal)

== ENCOUNTER → 2017-03-18 | Outpatient (REF) | payer OTHER | LOC: M SFHCPLAZ 12:58 | DX: M79.89 Other specified soft tissue disorders (principal) ==

== ENCOUNTER → 2017-04-02 | Outpatient (CLI) | payer OTHER ==
--- NOTE | 2017-04-02 19:41 | REP ---
LEFT LOWER EXTREMITY DOPPLER VENOUS ULTRASOUND: 04/02/2017. Comparison: None. Clinical history: Lower extremity swelling, evaluate for DVT. Technique: The deep venous system of the left lower extremity is evaluated with marcos scale imaging, compression ultrasound, color imaging and duplex Doppler interrogation. Examination from the groin through the popliteal fossa into the proximal calf. Findings: There is full compressibility from the common femoral vein in the inguinal region through the popliteal vein. Color imaging confirms patency throughout the course of the deep venous system. There is respiratory variation and augmented flow at all levels. As an incidental note the distal femoral vein above the popliteal vein shows a partial duplication which is an anatomic variation. There are also contains no thrombus. Impression: 1. No Doppler venous ultrasound evidence of DVT in the left lower extremity. Signed by Contreras Mena MD 04/02/2017 07:32 P
== END ==
LOC: M RAD 13:51
DX: M79.89 Other specified soft tissue disorders (principal)

== ENCOUNTER → 2017-04-15 | Outpatient (CLI) | payer OTHER ==
[2017-04-15 20:15] LABS: MEAN CORPUSCULAR HEMOGLOBIN 25.3 pg (27.0-33.0); MEAN CORPUSCULAR HGB CONC 30.5 g/dl (32.0-36.5); MEAN CORPUSCULAR VOLUME 82.9 fl (80.0-96.0); RED CELL DISTRIBUTION WIDTH 15.7 % (11.5-14.5); WHITE BLOOD COUNT 3.2 K/mm3 (4.0-10.0)
[2017-04-15 20:47] LABS: ANION GAP 6 MEQ/L (8-16); BLOOD UREA NITROGEN 18 MG/DL (7-18); CALCIUM LEVEL 9.6 MG/DL (8.5-10.1); CARBON DIOXIDE LEVEL 37 MEQ/L (21-32); CHLORIDE LEVEL 97 MEQ/L (98-107); CREATININE FOR GFR 1.06 MG/DL (0.55-1.02); GLOMERULAR FILTRATION RATE > 60.0 (>51); GLUCOSE, FASTING 114 MG/DL (70-105); POTASSIUM SERUM 4.4 MEQ/L (3.5-5.1); SODIUM LEVEL 140 MEQ/L (136-145)
== END ==
LOC: M LAB 16:03
DX: D64.9 Anemia, unspecified (principal); M79.89 Other specified soft tissue disorders

== ENCOUNTER 2017-06-24 14:52 | Emergency (ER) | payer OTHER, SELFPAY ==
[~2017-06-24] VITALS: Ht 167.6 cm; Wt 77.7 kg
[~2017-06-24 14:52] MED LIST changes: -ALEN70TA39 PO; -BENZ200C53 PO; -FURO40TA2 PO
[2017-06-24] MEDS ORDERED: FURO40TA2 PO (15:00)
[2017-06-24] MEDS ORDERED: ALEN70TA39 PO (15:00)
[2017-06-24] MEDS ORDERED: BENZ200C53 PO (16:30)
--- NOTE | 2017-06-24 16:34 | REP ---
UNILATERAL RIGHT RIBS, PA CHEST, FIVE VIEWS: HISTORY: Pain. COMPARISON: 02/24/2017 A diffuse increase in interstitial markings is present in the lungs consistent with chronic interstitial fibrosis. The heart is normal in size. The bony structure is intact. IMPRESSION: Chronic interstitial fibrosis. Signed by Freeman Jeffries MD 06/24/2017 05:05 P
[2017-06-24 16:48] VITALS: BP 130/74
== END 2017-06-24 16:51 | disposition home or self-care (01) ==
LOC: M ED 14:52
DX: R05 Cough (principal); S29.012A Strain of muscle and tendon of back wall of thorax, initial encounter; X50.9XXA Other and unspecified overexertion or strenuous movements or postures, initial encounter; Y92.89 Other specified places as the place of occurrence of the external cause; Y93.89 Activity, other specified; Y99.8 Other external cause status; Z87.891 Personal history of nicotine dependence

== ENCOUNTER → 2017-06-26 | Outpatient (CLI) | payer SELFPAY ==
[~2017-06-26] MED LIST changes: +ALEN70TA39 PO; +BENZ200C53 PO; +FURO40TA2 PO
--- NOTE | 2017-06-27 01:55 | REP ---
Clinical: Interstitial fibrosis. Technique: PA and lateral. Comparison: 02/24/2017. Findings: Advanced diffuse bilateral interstitial fibrosis is essentially unchanged compared to prior examination. Subtle superimposed acute process cannot be excluded. No effusion. No pneumothorax. Mediastinum and cardiac silhouette are stable and within normal limits. Skeletal structures are intact. Impression: Advanced interstitial fibrosis similar to prior examination. No obvious acute process. Signed by Geo Villanueva MD 06/27/2017 01:47 A
== END ==
LOC: M SMT 10:43
PROVIDERS: ATTEND Thoracic Surgery (Cardiothoracic Vascular Surgery)
DX: J84.10 Pulmonary fibrosis, unspecified (principal)

== ENCOUNTER → 2017-07-17 | Outpatient (CLI) | payer OTHER, SELFPAY ==
--- NOTE | 2017-07-17 15:28 | REP ---
Chest two views HISTORY: Pulmonary fibrosis Comparison: 06/26/2017 A diffuse increase in interstitial markings is present in the lungs consistent with chronic interstitial fibrosis. The heart is normal in size. The pulmonary vasculature is normal in appearance. The bony structure is intact. IMPRESSION: Chronic interstitial fibrosis. Signed by Freeman Jeffries MD 07/17/2017 03:19 P
== END ==
LOC: M SMT 15:10
PROVIDERS: ATTEND Thoracic Surgery (Cardiothoracic Vascular Surgery)
DX: J84.9 Interstitial pulmonary disease, unspecified (principal); J84.17 Other interstitial pulmonary diseases with fibrosis in diseases classified elsewhere

== ENCOUNTER → 2017-10-02 | Outpatient (REF) | payer OTHER | LOC: M LAB REF 17:26 | DX: J84.10 Pulmonary fibrosis, unspecified (principal) ==

== ENCOUNTER → 2017-10-03 | Outpatient (REF) | payer OTHER ==
[2017-10-03 20:50] LABS: ANION GAP 2 MEQ/L (8-16); BLOOD UREA NITROGEN 14 MG/DL (7-18); CALCIUM LEVEL 9.2 MG/DL (8.5-10.1); CARBON DIOXIDE LEVEL 39 MEQ/L (21-32); CHLORIDE LEVEL 100 MEQ/L (98-107); CREATININE FOR GFR 0.71 MG/DL (0.55-1.02); GLOMERULAR FILTRATION RATE > 60.0 (>51); GLUCOSE, FASTING 122 MG/DL (70-100); POTASSIUM SERUM 4.5 MEQ/L (3.5-5.1); SODIUM LEVEL 141 MEQ/L (136-145)
== END ==
LOC: M SFHCPLAZ 15:28
DX: Z00.00 Encounter for general adult medical examination without abnormal findings (principal)

== ENCOUNTER → 2018-03-06 | Outpatient (REF) | payer OTHER | LOC: M LAB REF 12:58 | DX: J84.10 Pulmonary fibrosis, unspecified (principal) ==

== ENCOUNTER → 2018-05-28 | Outpatient (CLI) | payer OTHER ==
[2018-05-28 19:21] LABS: HEMATOCRIT 31.1 % (36.0-47.0); MEAN CORPUSCULAR HEMOGLOBIN 24.1 pg (27.0-33.0); MEAN CORPUSCULAR HGB CONC 28.9 g/dl (32.0-36.5); MEAN CORPUSCULAR VOLUME 83.4 fl (80.0-96.0); PLATELET COUNT, AUTOMATED 187 10^3/uL (150-450); RED BLOOD COUNT 3.73 10^6/uL (4.00-5.40); RED CELL DISTRIBUTION WIDTH 15.9 % (11.5-14.5); WHITE BLOOD COUNT 3.9 10^3/uL (4.0-10.0)
[2018-05-28 19:42] LABS: TROPONIN I < 0.02 NG/ML (< 0.10)
== END ==
LOC: M LAB 18:03
DX: R06.02 Shortness of breath (principal); J84.10 Pulmonary fibrosis, unspecified
CPT/HCPCS: 71046